=== PATIENT | female | born 1945 | race Caucasian/White ===

== ENCOUNTER → 2017-12-04 16:54 | Outpatient (CLI) | payer MEDICARE, OTHER, SELFPAY ==
--- NOTE | 2017-12-04 17:00 | RAD_ITS ---
STUDY: X-RAY - ABDOMEN/PELVIS REASON FOR EXAM: Female, 72 years old. Chronic constipation TECHNIQUE: 2 frontal views COMPARISON: None. FINDINGS: Normal visualized lung bases. Gaseous distended descending colon is noted with loss of haustral markings. There is no demonstrated free abdominal air. Normal soft tissue structures. Mild scoliosis. RAD/Abdomen Single View IMPRESSION: Gaseous distended descending colon is noted with loss of haustral markings. Electronically Signed: José Miguel Barnhart DO at 18:19 EST Tel [phone], Service support ,
== END ==
PROVIDERS: Family Provider Family Medicine; PCP Family Medicine; Visit Provider Family Medicine
DX: K59.09 Other constipation (principal)
CPT/HCPCS: 74018

== ENCOUNTER → 2017-12-12 13:45 | Outpatient (CLI) | payer MEDICARE, OTHER, SELFPAY ==
--- NOTE | 2017-12-12 13:47 | CT_ITS ---
STUDY: CT ABDOMEN AND PELVIS WITH CONTRAST REASON FOR EXAM: Female, 72 years old. Constipation. Prior bowel resection. RADIATION DOSAGE (If Supplied By Facility): CTDIvol = ( 22.09 ) mGy, DLP = ( 1215.01 ) mGycm TECHNIQUE: Transaxial images were obtained from the dome of the diaphragm to the symphysis pubis with oral contrast. 100CC ml of Isovue 300 contrast was administered. Sagittal and coronal images were reconstructed. Individualized dose optimization techniques were used for this CT. COMPARISON: None. FINDINGS: Minimal degree of increased linear markings at the lung bases suggestive of mild scarring. Cardiomegaly. Left atrial enlargement. A dual chamber pacemaker is seen. Prior mitral valve replacement. Normal liver. Normal gallbladder and extrahepatic biliary system. Normal spleen. Normal pancreas. Normal bilateral adrenal glands. Normal right kidney. Normal left kidney. There is a small hiatal hernia. Normal small intestine. A moderate amount of fecal material is seen throughout the colon. The patient is status post appendectomy. Normal abdominal aorta. Normal inferior vena cava. Normal retroperitoneum. Normal urinary bladder. Enlarged calcified fibroid uterus. Normal abdominal wall. Disc space narrowing at the L5-S1 level. CT/Abdomen/Pelvis WITH Contrast IMPRESSION: Moderate amount of fecal material is seen throughout the colon. Enlarged calcified fibroid uterus. Electronically Signed: Roc Gunn MD at 14:54 EST Tel [phone], Service support ,
[2017-12-12 14:00] LABS: CREATININE FINGERSTICK 0.8 mg/dL (0.55-1.02); EGFR FINGERSTICK > 60.0000 mL/min (>60)
== END ==
PROVIDERS: Family Provider Family Medicine; PCP Family Medicine; Visit Provider Family Medicine
DX: K59.09 Other constipation (principal)
CPT/HCPCS: 74177; Q9967

== ENCOUNTER → 2017-12-23 10:01 | Outpatient (CLI) | payer MEDICARE, OTHER, SELFPAY ==
[2017-12-23 11:58] LABS: Absolute Lymphocyte Count 1.27 X10^3/ul (0.83-4.51); Absolute Neutrophil Count 2.7 X10^3/uL (2.0-7.7); Basophil# 0.04 X10^3/uL; Basophil% 0.9 % (0-1); Eosinophil# 0.11 X10^3/uL; Eosinophils% 2.4 % (0-5); Hematocrit 44.6 % (37-47); Hemoglobin 14.2 g/dl (12.0-15.0); Lymphocyte # 1.27 X10^3/ul (4.0); Lymphocyte % 27.1 % (19-41); Mean Corp Hgb Conc 31.8 g/gl (32-36); Mean Corpuscular Hgb 30.9 pg (27.0-32.0); Mean Corpuscular Volume 97.2 fL (81-99); Mean Platelet Vol. 11.6 fl (6.2-12.0); Monocyte# 0.55 X10^3/uL; Monocyte% 11.8 % (0-10); Neutrophil # 2.71 X10^3/uL (2.7-7.7); Neutrophil % 57.8 % (47-70); POSITIVE COUNT NO; POSITIVE DIFFERENTIAL NO; POSITIVE MORPHOLOGY NO; Platelet Count 201 K/mm3 (150-450); RBC Distribution Width CV 14.1 % (11.6-14.6); RBC Distribution Width SD 50.1 fl (35.1-43.9); Red Blood Count 4.59 M/mm3 (4.2-5.4); White Blood Count 4.7 K/mm3 (4.4-11.0)
[2017-12-23 12:05] LABS: International Normalized Ratio 3.2; Prothrombin Time (Protime)PT. 32.6 SECONDS (11.7-14.9)
[2017-12-23 12:51] LABS: AST(SGOT) 41 U/L (15-37); Alanine Aminotransfer ALT/SGPT 40 U/L (13-56); Albumin, Serum 3.9 g/dL (3.2-5.0); Alkaline Phosphatase 84 U/L (45-117); Anion Gap 9 (5-15); BUN 20 mg/dL (7-18); BUN/Creat Ratio 20.2 RATIO (10-20); Bilirubin, Direct 0.17 mg/dL (0.00-0.30); Chloride 105 mmol/L (98-107); Cholesterol 174 mg/dL (200); Creatinine, Serum 0.99 mg/dL (0.55-1.02); EST Glomerular Filtration Rate 58 mL/min (>60); Est Glom Filt Rate - Afr Amer 71 mL/min (>60); Ferritin 72 ng/mL (8-252); Globulin 3.9 g/dL (2.2-4.2); Glucose 97 mg/dL (74-106); High Density Lipoprotein 43 mg/dL; Magnesium 2.4 mg/dL (1.6-2.6); Potassium 4.1 mmol/L (3.5-5.1); Protein, Total 7.8 g/dL (6.4-8.2); Sodium Level 141 mmol/L (136-145); Thyroid Stim Hormone (TSH) 6.64 uIU/mL (0.358-3.74); Triglycerides 168 mg/dL; Very Low Density Lipoprotein 34 mg/dL (5-40)
[2017-12-24 09:44] LABS: Vitamin B12 210 pg/mL (211-911)
== END ==
PROVIDERS: Family Provider Family Medicine; PCP Family Medicine; Visit Provider Family Medicine
DX: I48.91 Unspecified atrial fibrillation (principal); G11.9 Hereditary ataxia, unspecified; I42.8 Other cardiomyopathies; K59.09 Other constipation
CPT/HCPCS: 36415; 80048; 80061; 80076; 82607; 82728; 82746; 83735; 84443; 85025; 85610

== ENCOUNTER 2018-01-11 16:25 | Emergency (ER) | payer MEDICARE, OTHER, SELFPAY ==
[2018-01-11 16:26] VITALS: BP 114/82; PULSE 79; RESP 16; TEMP 36.3; O2SAT 97; BMI 30.9
--- NOTE | 2018-01-11 16:49 | CT_ITS ---
STUDY: CT BRAIN WITHOUT CONTRAST REASON FOR EXAM: Female, 72 years old. FALL , SMALL LAC RIGHT EYE, UNABLE TO WALK, BRAINSTEM STROKE, CEREBELLAR ATAXIA RADIATION DOSAGE (If Supplied By Facility): CTDIvol = ( 44.99 ) mGy, DLP = ( 897.35 ) mGycm TECHNIQUE: Transaxial CT imaging of the brain was performed without administration of intravenous contrast material. Individualized dose optimization techniques were used for this CT. COMPARISON: September 15, 2016 FINDINGS: Normal soft tissue structures. Normal calvarium. Normal size ventricles and extra-axial spaces for the patient's age. There are areas of decreased attenuation within the white matter tracts of the supratentorial brain, consistent with microvascular disease changes. Normal basal ganglia and thalami. Normal brainstem. Normal cerebellum. There is no intracranial hemorrhage. There are no findings of an acute ischemic infarction. Normal visualized paranasal sinuses. CT/Brain/Head without Contrast IMPRESSION: No acute intracranial hemorrhage or fracture is demonstrated. Electronically Signed: Karen Samuel MD at 17:43 EDT , Service support ,
--- NOTE | 2018-01-11 16:52 | ED.VISSUMM ---
- ER Visit Summary Date of Service: 01/11/18 Chief Complaint: Fall History of Present Illness: The patient is a 72 F with a history of spinal cerebellar ataxia, she walks with a walker at baseline but also uses a wheelchair a lot of times, states that she was getting from the recliner to her wheelchair, in the process her legs were too weak to hold her and she gave out and fell to the hardwood floor versus her right temporal forehead/head, and somehow injured her left chest in the process. She did not lose consciousness, she denies any nausea or vomiting or confusion or focal neurologic symptoms except for both of her legs being weak. She cannot tell if she is having soreness in the area that she hurt in her forehead or if she has a headache in that area. She is on Coumadin for chronic A. fib and she had an aortic valve replacement, and she has a cardiomyopathy with a low ejection fraction. Her last INR check was 3 weeks ago. Physical Examination: Vital signs are normal, her GCS is 15, she is well-appearing keenly alert. No distress. She has a small contusion in the right temporal area above the zygomatic arch which is nontender and stable. Midface is otherwise atraumatic. There is a minor abrasion at the superior brim of the right orbit, laterally. No lacerations. No hematomas. No crepitance or depression of the skull. No signs of a basilar skull fracture. She has a minor abrasion on the dorsum of the left wrist with no tenderness, she has full range of motion of all 4 extremities, but she is generally weak and symmetrically so in the lower extremities. Minor contusion on the right lower leg anteriorly nontender. Abdomen and chest are benign except for some mild tenderness in the left lateral mid chest just lateral to the left breast. There is no flail, or crepitance. She cannot take a deep breath without splinting. Equal breath sounds are heard bilaterally, lungs are clear. Back is nontender including neck, full range of motion of all that. Test Results: CT head and left rib series with PA chest are negative for acute injury. Old left-sided rib fractures were seen, the patient confirms that she did have some rib fractures in the past. Her INR is 3.0. Emergency Department Course and Treatment: I discussed possible causes of her weakness, she confirms that she has felt like this with her spinal cerebellar ataxia before, and when she has had a urinary tract infection in the past, she had dysuria, which she has not had recently, or any other symptoms of an illness. They are comfortable going home, she does have a wheelchair to get around in as needed. Encouraged to follow-up if she feels worse, or return to the ER. They are comfortable with this plan. Treatment Plan: As above Disposition: Discharge home with Impression: Closed head injury without concussion without loss of consciousness facial contusion Left rib contusion History spinal cerebellar ataxia Warfarin coagulopathy This note was generated with [employer]ne[employer] dictation software. It may contain incorrect words, spelling, and punctuation that were not noted in review of the chart prior to signing ED Disposition - Plan for ED Patient: Disposition: Home or Assisted Living Chief Complaint: Fall Instructions: Contusions (Bruises), ED Head Injury Closed Referrals: Jr Baron MD [Primary Care Provider] - (as needed)
[2018-01-11 17:19] LABS: International Normalized Ratio 3.3; Prothrombin Time (Protime)PT. 33.4 SECONDS (11.7-14.9)
--- NOTE | 2018-01-11 17:25 | RAD_ITS ---
STUDY: X-RAY - UNILATERAL RIBS ( LEFT ) WITH CHEST REASON FOR EXAM: Female, 72 years old. PATIENT FELL TODAY. PAIN IN MID TO LOWER LEFT RIBS ANTERIORLY TECHNIQUE - RIBS: 4 view(s) of the ribs. TECHNIQUE - CHEST: Single AP portable view of the chest. COMPARISON: January 12, 2016 left rib x-ray report only FINDINGS - RIBS: There are old fractures of the left sixth through 10th ribs. FINDINGS - CHEST: There is left basilar atelectasis. There is no demonstrated pleural abnormality. There is moderate cardiac megaly. Normal mediastinum and yoon. Normal visualized pulmonary arteries. Normal visualized aortic arch and descending thoracic aorta. Normal visualized thoracic spine. Normal visualized clavicles, and shoulders. There is no demonstrated abnormality of the visualized soft tissue structures of the upper abdomen. RAD/Ribs Uni Min 3V w/PA Chest IMPRESSION: RIBS: There are old fractures of the left sixth through 10th ribs. No acute fracture is demonstrated. CHEST: There is left basilar atelectasis. There is moderate cardiac megaly. Electronically Signed: Karen Samuel MD at 17:56 EDT , Service support ,
[2018-01-11 17:56] VITALS: BP 108/73; PULSE 80; RESP 14; O2SAT 99
[2018-01-11 18:49] VITALS: BP 117/73; PULSE 80; RESP 19; O2SAT 97
== END 2018-01-11 18:50 | disposition home or self-care (01) ==
PROVIDERS: Emergency Provider Emergency Medicine; Family Provider Family Medicine; PCP Family Medicine
DX: S00.83XA Contusion of other part of head, initial encounter (principal); S20.212A Contusion of left front wall of thorax, initial encounter; S00.211A Abrasion of right eyelid and periocular area, initial encounter; S60.812A Abrasion of left wrist, initial encounter; W01.10XA Fall on same level from slipping, tripping and stumbling with subsequent striking against unspecified object, initial encounter; Y93.9 Activity, unspecified; Y92.9 Unspecified place or not applicable; Y99.9 Unspecified external cause status; G11.9 Hereditary ataxia, unspecified; R79.1 Abnormal coagulation profile; I48.2 Chronic atrial fibrillation; I42.9 Cardiomyopathy, unspecified; G47.33 Obstructive sleep apnea (adult) (pediatric); Z79.01 Long term (current) use of anticoagulants; Z79.82 Long term (current) use of aspirin; Z79.899 Other long term (current) drug therapy; Z87.440 Personal history of urinary (tract) infections; Z95.2 Presence of prosthetic heart valve
CPT/HCPCS: 70450; 71101; 85610; 99284

== ENCOUNTER → 2018-02-26 09:56 | Outpatient (CLI) | payer MEDICARE, OTHER, SELFPAY ==
[2018-02-26 10:06] LABS: Bacteria 0 SEEN /hpf (None Seen); Mucous, Urine 0 SEEN /hpf (<or=2+)
[2018-02-26 12:04] LABS: International Normalized Ratio 2.4; Prothrombin Time (Protime)PT. 26.1 SECONDS (11.7-14.9)
[2018-02-26 12:09] LABS: Hematocrit 43.9 % (37-47); Hemoglobin 14.7 g/dl (12.0-15.0); Mean Corp Hgb Conc 33.5 g/gl (32-36); Mean Corpuscular Hgb 31.8 pg (27.0-32.0); Mean Platelet Vol. 12.6 fl (6.2-12.0); Platelet Count 195 K/mm3 (150-450); RBC Distribution Width SD 47.2 fl (35.1-43.9); Red Blood Count 4.62 M/mm3 (4.2-5.4); White Blood Count 4.6 K/mm3 (4.4-11.0)
[2018-02-26 12:17] LABS: Scan Indicated on CBC? Y/N NO
[2018-02-26 12:22] LABS: Anion Gap 8 (5-15); BUN 20 mg/dL (7-18); BUN/Creat Ratio 18.7 RATIO (10-20); Calcium,Total 9.3 mg/dL (8.5-10.1); Chloride 104 mmol/L (98-107); Creatinine, Serum 1.07 mg/dL (0.55-1.02); EST Glomerular Filtration Rate 53 mL/min (>60); Est Glom Filt Rate - Afr Amer 65 mL/min (>60); Glucose 105 mg/dL (74-106); Sodium Level 139 mmol/L (136-145)
[2018-02-26 12:23] LABS: Thyroid Stim Hormone (TSH) 3.68 uIU/mL (0.358-3.74)
[2018-02-26 18:40] LABS: Color, Urine Yellow (Yellow); Glucose, Dipstick Normal (Normal); Ketone-Dipstick Negative (Negative); Nitrite-Dipstick Negative (Negative); Occult Blood-Urine Negative /ul (Negative); Protein-Dipstick Negative (Negative); Urine Bilirubin Dipstick Negative (Negative); Urine Clarity Sl. Cloudy (Clear)
[2018-02-26 19:26] LABS: Leukocyte Esterase-Dipstick Negative /ul (Negative); Specific Gravity, Urine 1.015 (1.002-1.030); Urine Urobilinogen 1 mg/dl (Normal); Urine pH 6.5 (5.0 - 8.0)
[2018-02-26 19:43] LABS: Squamous Epithelial Cells - UA 0-5 SEEN /hpf (5-10); Transitional Epithelial - Ur 0-5 SEEN /hpf (0-5)
[2018-02-26 19:44] LABS: Red Blood Cells-Urine 0-5 SEEN /hpf (0-5)
[2018-02-26 19:46] LABS: White Blood Cells 5-10 SEEN /hpf (0-5)
[2018-02-26 19:47] LABS: Fine Granular Cast- Urine 0 SEEN /lpf (0-5)
[2018-02-26 19:50] LABS: Hyaline Cast 10-25 SEEN /lpf (0-5)
== END ==
PROVIDERS: Family Provider Family Medicine; PCP Family Medicine; Visit Provider Internal Medicine Cardiovascular Disease
DX: I42.0 Dilated cardiomyopathy (principal); I48.2 Chronic atrial fibrillation; R94.6 Abnormal results of thyroid function studies; Z95.810 Presence of automatic (implantable) cardiac defibrillator
CPT/HCPCS: 36415; 80048; 81001; 84443; 85027; 85610

== ENCOUNTER 2018-03-05 09:30 | Day surgery (SDC) | payer MEDICARE, OTHER, SELFPAY ==
[2018-03-05 10:01] LABS: Prothrombin Time Fingerstick 30.4 SEC (11.9-14.4)
--- NOTE | 2018-03-05 11:01 | PN_ITS ---
Progress Note ADDENDUM Addendum entered and electronically signed by MICHAEL Garcia 10:58: Pt is scheduled to have an ICD generator change out today. I have re-examined the patient. There are no clinical changes since the date of exam. Assessment & Plan 1. Dilated cardiomyopathy I42.0 2. Persistent atrial fibrillation I48.1 3. AICD (automatic cardioverter/defibrillator) present Z95.810 4. H/O mitral valve replacement Z95.2 [facility], 06/25/06 @ [facility] 5. Pure hypercholesterolemia E78.00; E78.0 6. Congestive heart failure with left ventricular diastolic dysfunction, NYHA class 3 I50.30 HPI HPI Chief Complaint: Follow up Details: ELIZABETH JOE, is a 72 F who presents to the office today for a follow -up visit. She is a pleasant lady with a history of nonischemic cardiomyopathy chronic atrial fibrillation mitral valve replacement status post [employer] device implantation who returns for routine follow-up visit. She has been compliant with all her medications and says that her exercise capacity remains stable. There has been perhaps minimal improvement she has not had any syncope occasionally she has had some dizziness. She has had occasional chest discomfort which is not long lasting and she is also been fatigued. She is also had minimal shortness of breath with activity. Approximately 3 months ago she had an episode of chest discomfort which did not appear to be coronary in etiology. She has not developed any significant or pedal edema. You do remember that in the summer of last year we obtained an echocardiogram which demonstrated an ejection fraction of 20% with akinesis of the lateral basal wall. Overall it did not appear to be significantly changed from previous. She has been keeping records of her blood pressures at home and they have ranged from the mid 80s to low 100s. Her physical exam today demonstrates clear lung gutiérrez crisp prosthetic heart sounds and no pedal edema. She appears to be tolerating her current dose of the Entresto. She also had her defibrillator interrogated today and she is close to LYNNE. 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 Accompanied by: Is patient in pain?: No Allergies Iodinated Contrast- Oral and IV Dye [Iodinated Contrast Media - IV Dye] Allergy (Intermediate, Verified 01/22/18 15:57) Rash Tetracyclines Adverse Reaction (Unknown, Verified 01/22/18 15:57) Rash wool Adverse Reaction (Verified 01/22/18 15:57) Rash chocolate Allergy (Mild, Uncoded 01/11/18 17:58) coughing/rash ragweed Allergy (Mild, Uncoded 01/11/18 17:58) red,itchy eyes beta bhavin Adverse Reaction (Intermediate, Uncoded 01/20/18 11:52) Unknown Medications Alpha Lipoic Acid 200 mg PO TID 04/24/15 [History Confirmed 01/22/18] Alprazolam [Xanax Xr] 0.25 mg PO BID 04/24/15 [History Confirmed 01/22/18] Aspirin [Aspirin, Baby] 81 mg PO DAILY@0800 04/24/15 [History Confirmed 01/22/18 ] Carvedilol [Coreg (Beta Bhavin)] 3.125 mg PO BID 04/24/15 [History Confirmed ] Furosemide [Lasix] 40 mg PO DAILY 04/24/15 [History Confirmed 01/22/18] Levocarnitine Tartrate [l-Carnitine] 500 mg PO TID 04/24/15 [History Confirmed 01/22/18] Linacolotide [Linzess] 72 mcg PO DAILY 04/24/15 [History Confirmed 01/22/18] Magnesium 3 tab PO DAILY 04/24/15 [History Confirmed 01/22/18] Niacin [Niacin ER] 1,000 mg PO QHS 04/24/15 [History Confirmed 01/22/18] Rosuvastatin Calcium [Crestor] 20 mg PO QHS 04/24/15 [History Confirmed 01/22/18 ] Venlafaxine HCl [Effexor] 75 mg PO BID 04/24/15 [History Confirmed 01/22/18] digoxin 125 mcg tablet 125 mcg PO DAILY 04/24/15 [History Confirmed 01/22/18] levETIRAcetam tablet [Keppra tablet] 750 mg PO QHS 04/24/15 [History Confirmed 01/22/18] Calcium Carb/Vitamin D [Caltrate-600 With Vit D Tab] 2 tab PO BID 04/05/16 [ History Confirmed 01/22/18] Co Q10 200 [Co Q-10] 100 mg PO DAILY 04/05/16 [History Confirmed 01/22/18] Folic Acid 1 mg PO DAILY@0800 04/05/16 [History Confirmed 01/22/18] Warfarin [Coumadin] 4 mg PO SUTUWETHSA 04/05/16 [History Confirmed 01/22/18] Warfarin [Coumadin] 3 mg PO MOFR 05/12/16 [History Confirmed 01/22/18] ranitidine 150 mg tablet 150 mg PO QHS tab 09/24/17 [History Confirmed 01/22/18 ] sacubitril 49 mg-valsartan 51 mg tablet 1 tab PO BID #180 tab 12/22/17 [Rx Confirmed 01/22/18] simethicone 180 mg capsule 180 mg PO QDAY PRN 01/22/18 [History Confirmed ] Ejection fraction %: 20 to 24 PFSH Medical History Hyperlipidemia (Chronic) Seizure disorder (Inactive) Chronic atrial fibrillation (Chronic) Cerebellar ataxia (Chronic) Benign essential hypertension (Chronic) H/O mitral valve replacement (Chronic) History of CVA (cerebrovascular accident) (Chronic) Nonischemic cardiomyopathy (Chronic) Shortness of breath (Acute) Surgical History H/O mitral valve replacement (Chronic ~06/2006) History of cardioversion (Chronic ~06/03/16) AICD (automatic cardioverter/defibrillator) present (Chronic ~06/2009) History of left heart catheterization (Acute ~2006) Family History Father CAD (coronary artery disease) Mother CAD (coronary artery disease) CABG Social History Smoking Status: Never smoker alcohol intake: never substance use type: does not use what type of physical activity do you participate in: walking, weight training frequency: daily duration: 15-30 minutes/day ROS Const Const: Positive for fatigue; negative for weakness, body ache, fever(s), headache(s), chills, frequent falls , night sweats, daytime sleepiness, difficulty sleeping, excessive sweating, weight gain, weight loss, increased appetite, poor appetite, anorexia or other Eyes Eyes: Negative for blind spots, loss of peripheral vision, transient loss of vision, blurry vision, change in vision, double vision, floaters, tunnel vision or other ENT ENT: Negative for dizziness, Nosebleed/epistaxis, balance problems, tongue swelling, lip swelling or headache(s) Cardio Chest Pain: Yes Frequency: weekly Character: other (ache) Duration: minutes Palpitations: No Edema: None Muscle aches with walking: None Resp Respiratory: Positive for SOB with activity; negative for SOB at rest, SOB orthopnea\SOB lying down, Cough, crackles, wheezing, chest congestion, paroxysmal nocturnal dyspnea or Coughing up blood/ hemoptysis GI GI: Negative nausea, vomiting, heartburn, bright, red blood in stools or black, tarry stools : Negative for hematuria, frequent nighttime urination/ nocturia, erectile dysfunction or abnormal vaginal bleeding Musc Musc: Negative for balance problems, muscle aches/ myalgia, muscle weakness or joint pain Skin Skin: Negative redness, non-healing lesions, rash, unusual bruising or skin ulcer Neuro Neuro: Negative for blurry vision, double vision, dizziness, lightheadedness, near syncope, syncope, orthostatic symptoms, memory loss, vertigo, lack of coordination, confusion, weakness, headache(s) or frequent falls Bill Hematologic/Lymphatic: Negative for easy bleeding, easy bruising or enlarged lymph nodes Endo Endo: Positive for fatigue; negative for cold intolerance, heat intolerance, flushing, hair loss, increased thirst/drinking or excessive sweating Psych Psych: Negative for anxiety, depression, thoughts of harming anyone, thoughts of harming yourself, panic attacks, visual hallucinations or audible hallucinations Allergy Allergy/Immunology: Negative for rash, Negative for throat swelling, Negative for tongue swelling, Negative for hives, Negative for lip swelling Cardiology Exam Const Appearance: cooperative, healthy appearing, well developed, well groomed and no acute distress Nutritional Appearance: well nourished and average body habitus Orientation: alert, awake and oriented x3 Head Head: normal to inspection, normocephalic and atraumatic Ears: hearing grossly normal bilaterally and external ears normal Nose: external nose normal, nasal mucous membranes and turbinates normal, nares normal, septum normal, no nasal discharge Face and Sinus: face symmetric Mouth: oral mucosae normal, tongue normal, oropharynx normal and moist mucous membranes Teeth and gingiva: dentition normal Throat: posterior oropharynx normal, tonsils normal and uvula midline Eyes General: appearance normal, both eyes and all related structures Eyelids: eyelids normal Conjunctivae: conjunctivae normal Pupils: PERRL, normal by confrontation and accommodation normal EOM: EOM intact bilaterally Neck Neck: normal visual inspection, trachea midline and no JVD JVD: +5 Carotids: normal carotid upstroke and bounding pulses Chest Chest inspection: normal inspection of the chest, symmetric chest movement and normal respiratory effort Auscultation: Bilateral: Clear to Auscultation Cardio Palpation: normal PMI Rate: regular rate Rhythm: regular rhythm Heart sounds: S1 normal, normal, physiologic split S2 and crisp prosthetic S2; negative rub, gallop or murmur GI GI: normal to inspection, soft, no hepatosplenomegaly and bowel sounds present Neuro General: alert, awake, oriented x3, no focal sensory deficit, gait normal and moves all extremities Skin Skin: no rashes or lesions noted Extremities Pulses: Normal: Right Femoral Pulse, Left Femoral Pulse, Right Dorsalis Pedis Pulse, Left Dorsalis Pedis Pulse, Right Posterior Tibial Pulse, Left Posterior Tibial Pulse, Right Radial Pulse, Left Radial Pulse Lower Extremity Edema: None: Bilateral Musculoskel Musculoskeletal: No joint tenderness Psych Psychological: normal affect Assessment & Plan 1. Dilated cardiomyopathy I42.0 Plan She does have a history of dilated cardia myopathy with no overt heart failure at this time she remains on her beta-bhavin as well as her and just to dosage which will be continued. As you know we have been limited by the amount of beta blockers that can be administered due to her low blood pressures. 2. Persistent atrial fibrillation I48.1 Plan She is in persistent atrial fibrillation. Her ventricular response rate is overall controlled she is on digoxin for the above as well as the beta-bhavin and I did share with them they recent literature demonstrating fairly significant evidence about increased mortality with digoxin. I will therefore like us not to renew the above prescription. They are in good agreement with the above. 3. AICD (automatic cardioverter/defibrillator) present Z95.810 Plan She is status post by the ICD implantation. She is in persistent atrial fibrillation with a battery longevity of less than 3 months. She has been scheduled for a generator change within the next 6 weeks. She will continue her other medications the same except for the digoxin. Appropriate instructions were given to her regarding blood work as well as time for her generator change out. 4. H/O mitral valve replacement Z95.2 [facility], 06/25/06 @ [facility] in [place] Plan She does have a [facility] prosthetic mitral valve which appears to be functioning well she will remain on anticoagulation for the above. I would not recommend cessation of anticoagulation for battery change out. Her last INR was noted to be 3.3. 5. Pure hypercholesterolemia E78.00; E78.0 Plan Her lipid profile is excellent with a total cholesterol 174 and LDL of 97 and an HDL of 43. Her triglycerides 168. As part of her health management have suggested that we try to lose approximately 5-6 pounds over the next 6 months. Hopefully this would allow us to be less fatigued. 6. Congestive heart failure with left ventricular diastolic dysfunction, NYHA class 3 I50.30 Plan She has not had any overt symptoms of the above she will continue on the beta- bhavin diuretics electrolyte panel will also be obtained. Her last creatinine was noted to be 0.99 with adequate potassium and sodium levels. No other changes will be made. 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) 3 Months Coding Level of Care Code Off vis,est,level 4 Diagnoses Dilated cardiomyopathy I42.0 Persistent atrial fibrillation I48.1 AICD (automatic cardioverter/defibrillator) present Z95.810 H/O mitral valve replacement Z95.2 Pure hypercholesterolemia E78.00; E78.0 Hyperlipidemia type: pure hypercholesterolemia Congestive heart failure with left ventricular diastolic dysfunction, NYHA class 3 I50.30 Coding Level of Care Code Off vis,est,level 4 Diagnoses Dilated cardiomyopathy I42.0 Persistent atrial fibrillation I48.1 AICD (automatic cardioverter/defibrillator) present Z95.810 H/O mitral valve replacement Z95.2 Pure hypercholesterolemia E78.00; E78.0 Hyperlipidemia type: pure hypercholesterolemia Congestive heart failure with left ventricular diastolic dysfunction, NYHA class 3 I50.30
--- NOTE | 2018-03-05 11:46 | PCM.OP.BLANK ---
Operative Report Date of Procedure: 03/05/18 Preoperative diagnosis is device at end of life for normal battery depletion. Postoperative diagnosis same as above. After informed consent and IV antibiotics the patient was brought to the [place] catheterization laboratory and the skin over the device was prepped and draped in the usual sterile manner. Intermittent boluses of Versed, fentanyl and propofol were used for sedation and analgesia as well as 1% subcutaneous lidocaine. An incision was made over the pre-existing device. Using blunt and Bovie dissection the pocket was opened and the BiV ICD device was removed. Careful attention was paid not to injure the pre-existing leads. The leads were removed from the device header and they were interrogated. There is normal lead function. Hemostasis was obtained. The pocket was flushed with antibiotic solution. The sponge and needle count were correct. The new device was brought to the field. The leads were placed in the appropriate position in the header and secured by the set screw. The leads and the device were then placed in the pocket. The pocket was closed with a deep layer of running 2-0 Vicryl, a superficial layer of running 4-0 Vicryl, skin with Steri-Strips which were covered with a rolled 4 x 4 and Tegaderm. Patient left the room with the device programmed to proper parameters and there were no complications. Pt with low percent BiV pacing due to permanent atrial fibrillation. All lead parameters were tested and found to be functionally normal. Lead and device serial and model numbers are available in the chart documents provided by the device company student services representative procedure summary.
== END 2018-03-05 23:59 | disposition home or self-care (01) ==
PROVIDERS: Family Provider Family Medicine; PCP Family Medicine; Visit Provider Internal Medicine Cardiovascular Disease
DX: Z45.010 Encounter for checking and testing of cardiac pacemaker pulse generator [battery] (principal); I42.0 Dilated cardiomyopathy; I48.1 Persistent atrial fibrillation; I50.30 Unspecified diastolic (congestive) heart failure; E78.00 Pure hypercholesterolemia, unspecified; G11.9 Hereditary ataxia, unspecified; G40.909 Epilepsy, unspecified, not intractable, without status epilepticus; Z95.2 Presence of prosthetic heart valve; Z95.810 Presence of automatic (implantable) cardiac defibrillator; Z79.82 Long term (current) use of aspirin; Z79.01 Long term (current) use of anticoagulants; Z79.899 Other long term (current) drug therapy; Z00.6 Encounter for examination for normal comparison and control in clinical research program
CPT/HCPCS: 33264; 36416; 85610; 93641; 99152; 99153; J7040; J7050; A4216

== ENCOUNTER → 2018-04-09 08:01 | Outpatient (CLI) | payer MEDICARE, OTHER, SELFPAY ==
--- NOTE | 2018-04-09 10:38 | CPS ---
Patient didn't complete after Flow Volume Loop. Patient felt dizzy and was unable to complete. Philly Baca RRT
--- NOTE | 2018-04-09 11:36 | PFTCOMP ---
COMPLETE PULMONARY FUNCTION TEST INTERPRETATION Brief HPI: Patient is a 72 year old female, currently under the care of myself, who presents to [facility] for complete pulmonary function tests secondary to diagnosis of dyspnea on exertion. Respiratory therapist reports good effort and reproducible results. Patient developed dizziness following albuterol, but declined going to the ER. Interpretation: Forced expiration spirometry shows no large airways obstructive ventilatory defect with an FEV1 of 100% predicted. Spirograms are of good quality and plateau normally. The respiratory flow volume loop shows a normal pattern. Lung volumes by body plethysmography show a normal total lung capacity at 6.93 L, 102% predicted. All other lung volumes are within normal limits. Diffusion capacity by carbon monoxide is normal at 72% predicted. The airway resistance is normal. Compared to previous pulmonary function tests from 05/22/2017, there has been no significant change. Impression: These pulmonary function tests are grossly within normal limits and are unchanged compared to previous study one year ago.
--- NOTE | 2018-04-09 11:39 | PFTCOMP_ITS ---
COMPLETE PULMONARY FUNCTION TEST INTERPRETATION Brief HPI: Patient is a 72 year old female, currently under the care of myself, who presents to [facility] for complete pulmonary function tests secondary to diagnosis of dyspnea on exertion. Respiratory therapist reports good effort and reproducible results. Patient developed dizziness following albuterol, but declined going to the ER. Interpretation: Forced expiration spirometry shows no large airways obstructive ventilatory defect with an FEV1 of 100% predicted. Spirograms are of good quality and plateau normally. The respiratory flow volume loop shows a normal pattern. Lung volumes by body plethysmography show a normal total lung capacity at 6.93 L , 102% predicted. All other lung volumes are within normal limits. Diffusion capacity by carbon monoxide is normal at 72% predicted. The airway resistance is normal. Compared to previous pulmonary function tests from 05/22/2017, there has been no significant change. Impression: These pulmonary function tests are grossly within normal limits and are unchanged compared to previous study one year ago.
== END ==
PROVIDERS: Family Provider Family Medicine; PCP Family Medicine; Visit Provider Internal Medicine Critical Care Medicine
DX: R06.02 Shortness of breath (principal)
CPT/HCPCS: 94060; 94726; 94729

== ENCOUNTER → 2018-04-24 13:28 | Outpatient (CLI) | payer MEDICARE, OTHER, SELFPAY ==
--- NOTE | 2018-04-24 13:30 | SP.MBSS_ITS ---
PRIMARY / SECONDARY DIAGNOSIS: pharyngoesophageal dysphagia (R13.14) REFERRING PHYSICIAN: Dr. Jr Baron MD CURRENT DIET: regular textures, thin liquids DENTITION: WFL MENTAL STATUS: WNL RESPIRATORY STATUS: O2 via room air PREVIOUS MODIFIED BARIUM SWALLOW STUDY: yes 07/20/2012 MBS revealed mild to moderate oropharyngeal dysphagia with transient penetration to the vocal folds with thin liquids 04/22/2012 MBS revealed mild to moderate oropharyngeal dysphagia with transient penetration above the vocal folds with thin liquids 07/18/2010 MBS revealed mild to moderate oropharyngeal dysphagia with transient penetration above the vocal folds with thin liquids REASON FOR REFERRAL: Patient is a 72 year old female referred for a modified barium swallow (MBS) study to objectively assess the Patients oropharyngeal swallow function under fluoroscopy secondary to 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 Patients significant other present, both report intermittent coughing during PO intake (particularly with mixed textures / Hydes), deny any recent aspiration related pulmonary complications, report no significant changes in ambulatory status (1 assist with front wheeled walker; 20-40 feet distances). 01/11/2018 CXR revealed old fractures of the left sixth through 10th ribs; no acute fracture is demonstrated; left basilar atelectasis; moderate cardiomegaly. 01/11/2018 CT revealed no acute intracranial hemorrhage or fracture is demonstrated. 05/11/[address] revealed no evidence of acute neck process or mass; left thyroidectomy with heterogeneous right thyroid gland. MEDICAL HISTORY: Spinocerebellar ataxia, prior pontine infarction, seizure disorder, cardiomyopathy, persistent atrial fibrillation, automatic cardioverter / defibrillator, pure hypercholesterolemia, congestive heart failure with left ventricular diastolic dysfunction, prior mitral valve replacement, STUDY FINDINGS: Patient participated in a Modified Barium Swallow (MBS) study on 04/24/2018. Dr. Gunn was the radiologist present for this evaluation. This study was recorded in the lateral view and images were sent to PACs for storage. The following consistencies were presented to this patient for analysis of oropharyngeal swallow function: thin liquids, nectar thickened liquids, pudding , and a regular textured, Dori Doone cookie. Results of the MBS are as follows: PENETRATION / ASPIRATION SCALE (NIHCOLAS): 1 = does not enter airway 2 = enters airway/above vocal folds/ejected 3 = enters airway/above vocal folds/not ejected 4 = enters airway/contacts vocal folds/ejected 5 = enters airway/contacts vocal folds/not ejected 6 = enters airway/below vocal folds/ejected 7 = enters airway/below vocal folds/not ejected despite effort 8 = enters airway/below vocal folds/no effort PENETRATION / ASPIRATION SCALE (SCORE) WITH VIDEOFLOROSCOPIC SCALE SCORE: Thin liquid - 5 mL tsp.: 5 Thin liquids via cup (single sip): 2 Thin liquids via cup (single sip): 3 Thin liquids via cup (single sip): 2 Thin liquids via cup (sequential swallows): 3 Thin liquids via straw (single sip): 2 Thin liquids via cup (chin tuck): 2 Thin liquids via cup (chin tuck & 3 second prep): 1 Thin liquids via cup (chin tuck & 3 second prep): 2 Thin liquids via cup (chin tuck & 3 second prep): 1 Orcutt thickened liquids via cup (single sip): 1 [place]cutt thickened liquids via cup (single sip): 2 [place] thickened liquids via cup (single sip): 1 Pudding via spoon: 1 Regular textured cookie: 1 Thin liquids via cup (chin tuck): 2 IMPRESSION: DIAGNOSIS: mild to moderate oropharyngeal dysphagia (R13.12) ORAL PHASE CHARACTERIZED BY: LABIAL SEAL: no labial escape TONGUE CONTROL DURING BOLUS MANIPULATION: intermittent posterior escape of less than half of bolus BOLUS PREPARATION / MASTICATION: timely and efficient chewing and mashing BOLUS TRANSPORT / LINGUAL MOTION: intermittent repetitive/disorganized tongue motion exclusively with pudding and regular textures (bolus excessively posterior within the oral / oropharyngeal sector) ORAL RESIDUE: trace residue lining oral structures PHARYNGEAL PHASE CHARACTERIZED BY: INITIATION OF PHARYNGEAL SWALLOW: bolus head in pyriforms at first hyoid excursion SOFT PALATE ELEVATION: escape to nasal cavity LARYNGEAL ELEVATION: partial superior movement of thyroid cartilage/partial approximation of arytenoids cartilage to epiglottic petiole ANTERIOR HYOID EXCURSION: partial anterior movement EPIGLOTTIC MOVEMENT: inconsistent epiglottic inversion LARYNGEAL VESTIBULE CLOSURE AT HEIGHT OF SWALLOW: incomplete / inconsistent laryngeal vestibule closure with narrow column of air/contrast in laryngeal vestibule PHARYNGEAL STRIPPING WAVE: pharyngeal stripping wave present / complete PHARYNGOESOPHAGEAL SEGMENT OPENING: complete distension and complete duration with no obstruction of flow TONGUE BASE RETRACTION: trace column of contrast between tongue base and posterior pharyngeal wall PHARYNGEAL RESIDUE: collection of residue within or on pharyngeal structures ( valleculae and pyriforms) on one trial of thin liquids likely due to pharyngeal dyssynchrony versus pharyngeal dysmotility; trace residue within or on pharyngeal structures across remaining trials ESOPHAGEAL PHASE CHARACTERIZED BY: ESOPHAGEAL BOLUS CLEARANCE IN THE UPRIGHT POSITION: could not view EFFECTS OF TREATMENT STRATEGIES ATTEMPTED: Chin tuck posture = moderately effective 3 second prep = moderately effective DIET TEXTURE RECOMMENDATIONS: Will recommend a regular-soft textured, thin liquid diet. 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 Oral phase primarily marked by suboptimal lingual control resulting in intermittent premature bolus loss (< 10%) with occasional lingual pumping motion during swallow onset with more viscous textures. Pharyngeal phase marked by delayed pharyngeal swallow onset timing resulting in suboptimal bolus location upon swallow onset contributing to prandial penetration with liquids; reduced closure of the airway during deglutition attributed to reduced anterior hyoid excursion and intermittent reduction in laryngeal elevation resulting in inconsistent poor laryngeal vestibule closure / pressure / duration contributing to prandial penetration of thin and nectar thickened liquids and inconsistent laryngeal vestibule pressure generated to expel penetrated material ; and velopharyngeal insufficiency soft palate elevation with nasoregurgitation of thin liquids. Deficits somewhat improved with a combination of the chin tuck posture and 3 second prep (occasional transient penetration, no discernable difference between thickened liquids and thin with stated precautions). No aspiration appreciated throughout trials. RECOMMENDATIONS: No significant difference between tolerance of thin and nectar thickened liquids under fluoroscopy, with no recent aspiration related pulmonary complications reported and maintained ambulatory / self-care functioning leading to recommendations to proceed with less restrictive liquid textures. Nevertheless, if the Patient is demonstrating overt aspiration upon subjective clinical analysis, would recommend downgrade to nectar thickened liquids, as prolonged intake may provoke further overt reactions. Patient requires intensive skilled speech-language intervention targeting continued diet texture management; training and implementation of recommended compensatory strategies; and training, development, and implementation of home based oropharyngeal strengthening exercises to facilitate improved oropharyngeal strength and coordination (prior initiation reported with desire to re-implement) at the outpatient level. ADDITIONAL COMMENTS/RECOMMENDATIONS: Results and recommendations were discussed with the Patient immediately following MBS completion, with the Patient verbalizing understanding and agreement with all recommendations and education provided. IMAGE COUNT: [id number] G-CODES: SWALLOWING [id number] Current Status: CJ SWALLOWING [id number] Goal Status: CI SWALLOWING [id number] Discharge Status: CJ
--- NOTE | 2018-04-24 13:30 | RAD_ITS ---
STUDY: SWALLOWING STUDY REASON FOR EXAM: Female, 72 years old. Dysphagia. TECHNIQUE: The examination was performed with Speech Pathology in attendance. Under fluoroscopic observation, the patient ingested thin barium, thick barium, barium pudding, and barium coated cracker. FLUOROSCOPY TIME: 2:43 minutes/seconds. RADIOLOGIST INVOLVEMENT: Radiologist was present and providing direct supervision. [id number] fluoroscopic images were obtained. COMPARISON: None. FINDINGS: The following was observed during swallowing of the various mixtures of barium: Thin Barium: Transient penetration with ingestion of thin liquids. Thick Barium: Transient penetration with ingestion of nectar thickened liquids. Barium Pudding: There was no evidence of aspiration or laryngeal penetration. Barium Coated Cracker: There was no evidence of aspiration or laryngeal penetration. RAD/Swallowing Function w/Video IMPRESSION: Transient penetration with ingestion of thin liquids. Mild transient penetration with ingestion of nectar thickened liquids as well. The swallow study findings were discussed with the patient by the speech pathologist at the conclusion of the examination. Please see speech pathology report for more information and recommendations. Electronically Signed: Roc Gunn MD at 14:32 EDT Tel [phone], Service support ,
== END ==
PROVIDERS: Family Provider Family Medicine; PCP Family Medicine; Visit Provider Family Medicine
DX: R13.14 Dysphagia, pharyngoesophageal phase (principal)
CPT/HCPCS: 74230; 92611; G8996; G8997; G8998

== ENCOUNTER 2018-05-20 15:00 | Outpatient (RCR) | payer MEDICARE, OTHER, SELFPAY ==
--- NOTE | 2017-11-12 16:02 | HP.PTREVAL_ITS ---
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 Please see the progress note below for an update on the physical therapy plan of care! Subjective: Patient feeling like life is status quo. Doing HEP at home and feels like needs to walk longer in PT as she does not trust her to do this at home. Does continue to walk 20 feet 3x/day at home with his assist adn does continue home upper and lower extremity ex. Objective/Function: Pt pivotted to mat table from WC with SBA today, poor proprioception upon getting ontable causes her to fall into lying on table prematurely. 44 feet ambulation distance first walk today with Min A wh walker. sSecond walk 34 feet with 90 degree turn, Ptient needs Min A for baalnce as proprioception and motor control is poor and her walking is limited by fatigue in lungs which makes her steps short and labored and unsafe. 44 feet ambulation distance first walk today with Min A wh walker. sSecond walk 34 feet with 90 degree turn, Ptient needs Min A for baalnce as proprioception and motor control is poor and her walking is limited by fatigue in lungs which makes her steps short and labored and unsafe. Overall, quality of mobility may be slightly better adn less c/o pain.PT STILL APPROPRIATE FOR PT TO CONTINUE TO MAINTAIN CURRENT LEVEL OF FUNCTION SHE DOES NOT TRUST TO WALK FAR WITH HER AT HOME. Plan Plan: weekly x 4-8 weeks. Please start with rolling to B quads, HS, ITB, gluts and gastroc. Then focus on gait distance, quality and turning. Goals Goal 1:: 90 degree turns with Min A consistently Goal Time Frame: 4-6 Weeks Goal Progress: Goal Met Goal 2:: Maintain 180 degree pivot with Min A and 45-50 feet of walking with encouragement Goal Time Frame: 6-8 Weeks Goal Progress: met and maintaining Goal 3:: Pt maintain ability to walk with walker with at home 60-80 feet twenty feet at a time Goal Time Frame: 4-6 Weeks Goal Progress: still approp and maintain Anticipated Interventions Patient/Client Instruction: Educate patient on: Condition For the Purpose of:: To improve ability of physical actions for home/community/ work/leisure Therapeutic Exercise to Include: Gait and locomotor training For the Purpose of:: To improve ability of physical actions for home/community/ work/leisure Comments: transfer training. For the Purpose of:: To improve ability of physical actions for home/community/ work/leisure Manual Therapy Techniques to Include: Soft tissue mobilization For the Purpose of:: To improve nutrient delivery to tissue, To increase oxygenation perfusion, To improve gait and locomotor functions Please do not hesitate to contact me at [phone] by phone or Fax: if you have questions or concerns regarding this new plan of care! Sincerely, Jr Porras, DPT, OC
--- NOTE | 2017-11-12 16:02 | HP.PTDCS(2) ---
HP - PT D/C Summary (2) It has been my pleasure to treat ELIZABETH JOE under orders from Jr Baron, for the diagnosis of L hip OA for a total of 6 visit(s). Discharge Date: 11/12/17 Please see the following information for a summary of their discharge status. - Subjective Subjective: Overall L hip pain no different than a month ago. Hard to tella difference with the stretching. Some times feels better in PT, one day it did not. Has 3-4/10 intermittently in lateral L hip when up and on it at times.Hard to tell if should continue but thinks stick rolout helps. - Overall Improvement % Improvement: 20 - Objective Objective/Function/Assessment: 44 feet ambulation distance first walk today with Min A wh walker. sSecond walk 34 feet with 90 degree turn, Ptient needs Min A for baalnce as proprioception and motor control is poor and her walking is limited by fatigue in lungs which makes her steps short and labored and unsafe. OVERALL HARD TO TELL ANY OBVIOUS IMPROVEMENTS TO PAIN FROM ROLLING AND STRETCHING. WILL CONTINUE ROLLING UPPER LEGS UNDER OTHER CHART FOR MOBILITY. - Goals Goal 1:: Pain L groin at worst 4/10 and L leg pain abolished Goal Progress: Not Progressing Goal 2:: Walk 20 feet 3x/day at home with walker and Min A without increased pain. Goal Progress: inconsistently met Goal 3:: I HEP to minimize future problems Goal Progress: Goal Met - Plan Plan: D/C current chart, but will continue rolling treatment under mobility chart as that may be improving at least in patient's mind. - D/C Information Discharge Comments: patient not noticing improvement to pain and will discontinue this chart as pain is not a huge issue currently. Will continue rolling to upper legs under other chart for mobility as patient and michele thinks she may walk better quality after rolling. If there are questions or concerns regarding this patient's physical therapy, please feel free to call me at [phone]. Thank you for the referral of this patient. Sincerely, Jr Porras, DPT, OC
--- NOTE | 2017-12-17 15:56 | HP.PTREVAL_ITS ---
Jr Baron, It has been my pleasure to treat ELIZABETH JOE over the last 79 visits for cerebellar ataxia. Please see the progress note below for an update on the physical therapy plan of care! Subjective: Doing OK. Thinks that the rollout and stretching helps, but L hip still hurts in upper front leg. Doing leg strengthening at home daily, does some upper body. Stretching ITB daiily at home. Walking 20 feet 3x/day, feels like it is getting harder. Feels more fatigued. Car transfers getting harder as sits before gets to seat. Missing the seat more often. Objective/Function: One little knot in anterior lateral R quad with STM. Very tight HS and quads, painful to overstretch. Walks with two 90 degree turns 20 feet with Min A, never got a good step lengtgh on either foot. Better ambulation second time with better step length and narrower JENIFER. All walks self limited by fatigue. PROM LE WFL, quads and HS mod tight. GENERALLY PATIENT DOING WELL WITH MAINTENANCE OF HOME WALKING AND TRANSFERS NOT DIGRESSING. APPROPRIATE TO CONTINUE POC FOR MAINTENANCE OF ABILITY TO WALK, TRANSFER, TURN WITH MINMAL ASSIST AT HOME. Plan Plan: weekly x 4 weeks to work on gait to maintain ability to walk at home and trasnfer and 90 degree turns. Pt wanted to d/c rollout and STretching as it is not helping l leg pain. Goals Goal 1:: 90 degree turns with Min A consistently Goal Time Frame: 4-6 Weeks Goal Progress: Goal Met Goal 2:: Maintain 180 degree pivot with Min A and 45-50 feet of walking with encouragement Goal Time Frame: 6-8 Weeks Goal Progress: Goal Met Goal 3:: Pt maintain ability to walk with walker with at home 60-80 feet twenty feet at a time Goal Time Frame: 4-6 Weeks Goal Progress: met, still approp. Anticipated Interventions Patient/Client Instruction: Educate patient on: Condition For the Purpose of:: To improve ability of physical actions for home/community/ work/leisure Therapeutic Exercise to Include: Gait and locomotor training For the Purpose of:: To improve ability of physical actions for home/community/ work/leisure Comments: transfer training. For the Purpose of:: To improve ability of physical actions for home/community/ work/leisure Manual Therapy Techniques to Include: Soft tissue mobilization For the Purpose of:: To improve nutrient delivery to tissue, To increase oxygenation perfusion, To improve gait and locomotor functions Please do not hesitate to contact me at [phone] by phone or Fax: if you have questions or concerns regarding this new plan of care! Sincerely, Jr Porras, DPT, OC
--- NOTE | 2018-01-29 15:39 | HP.PTREVAL_ITS ---
Jr Baron, It has been my pleasure to treat ELIZABETH JOE over the last 83 visits for cerebellar ataxia. Please see the progress note below for an update on the physical therapy plan of care! Subjective: Had ow blood pressure last week and it stayed low. Fell the week before for the first time in two years. Walking and both legs gave out. Hit head on open door. Checked ribs and head at ER whcih were OK but they hurt for a little weight. Squad took her to ER. Now feels like walking OK(back to normal). Forgetting to do arm and leg lifting ex. Objective/Function: 4 walks 20 feet each with wh walker adn min A at first adn mod at the end. Sit to stand with Min a blaance. 90 degree turn with Min a with wh walker. LE adn UE AROM WFL, shoulders slightly tight into flexion. Strength LE 4/5 but coordination very poor. Sitting balacne without support fair-, reaching throws her off balacne with self corrections. Plan Plan: weekly x 4 weeks for walking maintenance as patient and do not feel they can maintain on their own. Goals Goal 1:: 90 degree turns with Min A consistently Goal Time Frame: 4-6 Weeks Goal Progress: Goal Met Goal 2:: Maintain 180 degree pivot with Min A and 45-50 feet of walking with encouragement Goal Time Frame: 6-8 Weeks Goal Progress: Goal Met Goal 3:: Pt maintain ability to walk with walker with at home 60-80 feet twenty feet at a time Goal Time Frame: 4-6 Weeks Goal Progress: still approp. Goal 4:: sit 120 seconds unsupported with reach without assist or LOB Goal Time Frame: 6-8 Weeks Goal Progress: NEW GOAL Anticipated Interventions Patient/Client Instruction: Educate patient on: Condition For the Purpose of:: To improve ability of physical actions for home/community/ work/leisure Therapeutic Exercise to Include: Gait and locomotor training For the Purpose of:: To improve ability of physical actions for home/community/ work/leisure Comments: transfer training. For the Purpose of:: To improve ability of physical actions for home/community/ work/leisure Manual Therapy Techniques to Include: Soft tissue mobilization For the Purpose of:: To improve nutrient delivery to tissue, To increase oxygenation perfusion, To improve gait and locomotor functions Please do not hesitate to contact me at [phone] by phone or Fax: if you have questions or concerns regarding this new plan of care! Sincerely, LEAH PerezT, OC
--- NOTE | 2018-03-11 15:35 | HP.PTREVAL_ITS ---
Jr Baron, It has been my pleasure to treat ELIZABETH JOE over the last 86 visits for cerebellar ataxia. Please see the progress note below for an update on the physical therapy plan of care! Subjective: Had procedure a week ago. Changed battery on pacemaker. Feels like walking is better since then. It is good to change it as it was slowing me down. Walking 60-8 feet a day 20 fet at a time at home. L groin hurts intermittently for no reason, not consistently. 10# UE lifting limit with UE for two weeks after surgery. Objective/Function: Pt has had only 2 visiss since last poc due to needing new pacemaker. Appropriate to continue for maintenance PT for walking and sitting and balance. Plan Plan: weekly x 4-8 for gait and sitting unsupported for breathing muscles. Goals Goal 1:: 90 degree turns with Min A consistently Goal Time Frame: 4-6 Weeks Goal Progress: Goal Met Goal 2:: Maintain 180 degree pivot with Min A and 45-50 feet of walking with encouragement Goal Time Frame: 6-8 Weeks Goal Progress: Goal Met Goal 3:: Pt maintain ability to walk with walker with at home 60-80 feet twenty feet at a time Goal Time Frame: 4-6 Weeks Goal Progress: met adn appropriate Goal 4:: sit 120 seconds unsupported with reach without assist or LOB Goal Time Frame: 6-8 Weeks Goal Progress: met adn maintenence appro Anticipated Interventions Patient/Client Instruction: Educate patient on: Condition For the Purpose of:: To improve ability of physical actions for home/community/ work/leisure Therapeutic Exercise to Include: Gait and locomotor training For the Purpose of:: To improve ability of physical actions for home/community/ work/leisure Comments: transfer training. For the Purpose of:: To improve ability of physical actions for home/community/ work/leisure Manual Therapy Techniques to Include: Soft tissue mobilization For the Purpose of:: To improve nutrient delivery to tissue, To increase oxygenation perfusion, To improve gait and locomotor functions Please do not hesitate to contact me at [phone] by phone or Fax: if you have questions or concerns regarding this new plan of care! Sincerely, Jr Porras, DPT, OC
--- NOTE | 2018-04-08 16:01 | HP.PTREVAL_ITS ---
Jr Baron, It has been my pleasure to treat ELIZABETH JOE over the last 89 visits for cerebellar ataxia. Please see the progress note below for an update on the physical therapy plan of care! Subjective: Feels like doing status quo. PT is important as she tries things in here she would never try at home distance and turning jimenez. Saw Dr. Del Cid and thinks things are OK, no changes and wants continued PT. Pt doing LE adn UE exercises at home. Objective/Function: Walking quality was poor today. Trunk control looks better today in unsupported sitting. Walking was shorter with more turns than usual and limited by lungs getting tired and step length shortens when tired and foot placement/proprioception is difficult throughout. Plan Plan: Continue maintenance therapy due to her degenerative condition to ensure appropriate walking, trasnfers. Goals Goal 1:: 90 degree turns with Min A consistently Goal Time Frame: 4-6 Weeks Goal Progress: Goal Met Goal 2:: Maintain 180 degree pivot with Min A and 45-50 feet of walking with encouragement Goal Time Frame: 6-8 Weeks Goal Progress: Goal Met Goal 3:: Pt maintain ability to walk with walker with at home 60-80 feet twenty feet at a time Goal Time Frame: 4-6 Weeks Goal Progress: met and appropriate Goal 4:: sit 120 seconds unsupported with reach without assist or LOB Goal Time Frame: 6-8 Weeks Goal Progress: Progressing Anticipated Interventions Patient/Client Instruction: Educate patient on: Condition For the Purpose of:: To improve ability of physical actions for home/community/ work/leisure Therapeutic Exercise to Include: Gait and locomotor training For the Purpose of:: To improve ability of physical actions for home/community/ work/leisure Comments: transfer training. For the Purpose of:: To improve ability of physical actions for home/community/ work/leisure Manual Therapy Techniques to Include: Soft tissue mobilization For the Purpose of:: To improve nutrient delivery to tissue, To increase oxygenation perfusion, To improve gait and locomotor functions Please do not hesitate to contact me at [phone] by phone or Fax: if you have questions or concerns regarding this new plan of care! Sincerely, Jr Porras, DPT, OC
== END 2018-05-20 19:00 | disposition home or self-care (01) ==
LOC: PT 15:00
PROVIDERS: Family Provider Family Medicine; PCP Family Medicine; Visit Provider Family Medicine
DX: M16.12 Unilateral primary osteoarthritis, left hip (principal)
CPT/HCPCS: 97110; 97116; 97140; 97530

== ENCOUNTER → 2018-10-16 15:33 | Outpatient (CLI) | payer MEDICARE, OTHER, SELFPAY ==
[2018-10-16 18:44] LABS: AST(SGOT) 60 U/L (15-37); Alanine Aminotransfer ALT/SGPT 67 U/L (13-56); Albumin, Serum 3.8 g/dL (3.2-5.0); Alkaline Phosphatase 93 U/L (45-117); Bilirubin, Direct 0.24 mg/dL (0.00-0.30); Cholesterol 168 mg/dL (200); Globulin 3.5 g/dL (2.2-4.2); High Density Lipoprotein 48 mg/dL; Protein, Total 7.3 g/dL (6.4-8.2); Triglycerides 143 mg/dL; Very Low Density Lipoprotein 29 mg/dL (5-40)
== END ==
PROVIDERS: Family Provider Family Medicine; PCP Family Medicine; Visit Provider Internal Medicine Cardiovascular Disease
DX: E78.5 Hyperlipidemia, unspecified (principal); Z79.899 Other long term (current) drug therapy
CPT/HCPCS: 36415; 80061; 80076

== ENCOUNTER → 2019-01-06 11:07 | Outpatient (CLI) | payer MEDICARE, OTHER, SELFPAY ==
[2018-10-29 15:12] VITALS: BMI 29.0
[2019-01-06 12:54] LABS: Hematocrit 43.7 % (37-47); Mean Corpuscular Hgb 31.4 pg (27.0-32.0); Mean Platelet Vol. 11.7 fl (6.2-12.0); Platelet Count 212 K/mm3 (150-450); RBC Distribution Width SD 50.3 fl (35.1-43.9); Red Blood Count 4.46 M/mm3 (4.2-5.4)
[2019-01-06 12:55] LABS: Scan Indicated on CBC? Y/N NO
[2019-01-06 13:10] LABS: Anion Gap 9 (5-15); BUN 24 mg/dL (7-18); BUN/Creat Ratio 25.6 RATIO (10-20); Calcium,Total 8.9 mg/dL (8.5-10.1); Chloride 104 mmol/L (98-107); Creatinine, Serum 0.94 mg/dL (0.55-1.02); EST Glomerular Filtration Rate 62 mL/min (>60); Est Glom Filt Rate - Afr Amer 75 mL/min (>60); Glucose 125 mg/dL (74-106); Potassium 3.9 mmol/L (3.5-5.1); Sodium Level 140 mmol/L (136-145)
== END ==
PROVIDERS: Family Provider Family Medicine; PCP Family Medicine; Referring Provider Family Medicine; Visit Provider Internal Medicine Cardiovascular Disease
DX: I47.2 Ventricular tachycardia (principal)
CPT/HCPCS: 36415; 80048; 83735; 85027

== ENCOUNTER 2019-02-10 15:30 | Outpatient (RCR) | payer MEDICARE, OTHER, SELFPAY ==
--- NOTE | 2018-05-12 16:34 | HP.PTREVAL ---
Jr Baron, It has been my pleasure to treat ELIZABETH JOE over the last 92 visits for cerebellar ataxia. Please see the progress note below for an update on the physical therapy plan of care! Subjective: Not too shabby. No pain. nO SOON SCHEDULE WITH neuro. Got cleared by clinical research spec adn no f/u needed. Heart deficits is what holds her back with walking. Wants to continue maintenance PT. Walking at home 20-30 feet at a time. No major changes in function for better or worse. Objective/Function: Pt showing some deficits with reaching for object(rail) , hand flails until she grabs it, educated on trying weight on arm. Sit to stand is SBA, stadn to sit is much better with finding rail and sitting gently. Distance and volume of walking has been good for last two weeks at 150 feet each time and increased over 4 weeks ago. OVERALL, MAINTENANCE THERAPY IS APPROPRIATE WITH HER DIAGNOSIS AND SHE IS ACTUALLY SHOWN SOME IMPROVEMENT IN PT WALKING VOLUME OVER THE LAST MONTH. Plan Plan: Continue weekly maintenance for gait training, pt does nto wish or need to work on trasnfers or balance otherwise. Function is maintaining whcih is the goal. May want to try light weight around UE wrists to see if it makes reaching easier. Goals Goal 1:: Pt maintain ability to walk with her walker with at home 60-80 feet twenty feet at a time. Goal Time Frame: 2-4 Weeks Goal Progress: met and appropriate. Goal 2:: sit unsupported 120 seconds with reach without assist or LOB Goal Time Frame: 2-4 Weeks Anticipated Interventions Patient/Client Instruction: Educate patient on: Condition For the Purpose of:: To improve gait and locomotor functions Therapeutic Exercise to Include: Strength training, Gait and locomotor training For the Purpose of:: Other Other: maintenance of gait and transfers/balance. Please do not hesitate to contact me at [phone] by phone or if you have questions or concerns regarding this new plan of care! Sincerely, Jr Porras, DPT, OC
--- NOTE | 2018-05-13 07:52 | HP.SP.AD_ITS ---
History - History Date of Eval: 05/12/18 Previous speech therapy: Yes Results: MBS: 07/20/2012 MBS revealed mild to moderate oropharyngeal dysphagia with transient penetration to the vocal folds with thin liquids. 04/22/2012 MBS revealed mild to moderate oropharyngeal dysphagia with transient penetration above the vocal folds with thin liquids. 07/18/2010 MBS revealed mild to moderate oropharyngeal dysphagia with transient penetration above the vocal folds with thin liquids Other Relevant Medical History/Diagnoses/Surgery: Spinocerebellar ataxia, prior pontine infarction, seizure disorder, cardiomyopathy, persistent atrial fibrillation, automatic cardioverter / defibrillator, pure hypercholesterolemia , congestive heart failure with left ventricular diastolic dysfunction, prior mitral valve replacement, Smoking Status: Never smoker Hx Smoking: No Hx Tobacco Use: No Hx Smoking Exposure: No - Pain Is pain an issue with your current prescribed condition?: No - Personal Education History: Two Masters Degrees. Occupation: Retired. Right Hearing Abillity: Normal Left Hearing Abillity: Normal Visual Assistive Devices: None Patients Living Arrangements: With Significant Other Patient Allergies - Allergies Allergies Iodinated Contrast- Oral and IV Dye [Iodinated Contrast Media - IV Dye] Allergy (Intermediate, Verified 04/14/18 13:59) Rash Tetracyclines Adverse Reaction (Unknown, Verified 04/14/18 13:59) Rash wool Adverse Reaction (Verified 04/14/18 13:59) Rash chocolate Allergy (Mild, Uncoded 04/14/18 13:59) coughing/rash ragweed Allergy (Mild, Uncoded 04/14/18 13:59) red,itchy eyes beta cynthia Adverse Reaction (Intermediate, Uncoded 04/14/18 13:59) Unknown Subjective Oral Motor - Subjective Patient Reports: Slurred Speech Objective Oral Motor - Oral Status Dentition: WNL - Labial Observation at Rest: WNL Closure: WNL Pucker: WNL Retraction: WNL Alternating Pucker/Retraction: WNL Involuntary Movement noted: No - Lingual Impairment: WNL Protrusion: WNL Retraction: WNL Lateralization: WNL Involuntary Movement: No - Jaw Impairment: WNL - Respiratory Status Respiratory Status: Room Air Subjective Dysphagia - Symptoms Reported Symptoms/Problems with: Drooling, Coughing, Difficulty Swallowing Liquids - Current Diet Solids Current Diet: Soft - Current Diet Liquids Current Liquids: Thin Russell free water Protocol: No Objective Dysphagia - Thin Liquids Comments: No oral intake today per the patient request. Modified Barium Results Hx MBS Report Entered: Yes MBS Results (from prior exam): 05/13/18 07:50 Speech Therapy by Raji Ellis Modified Barium Swallow Study MR#: [id number] Acct: [id number] Name: ELIZABETH JOE Rep #: [id number] : [id number] 72 From: Arpit Barajas M.A., [employer] MANAGER PRIMARY / SECONDARY DIAGNOSIS: pharyngoesophageal dysphagia (R13.14) REFERRING PHYSICIAN: Dr. Jr Baron MD CURRENT DIET: regular textures, thin liquids DENTITION: WFL MENTAL STATUS: WNL RESPIRATORY STATUS: O2 via room air PREVIOUS MODIFIED BARIUM SWALLOW STUDY: yes 07/20/2012 MBS revealed mild to moderate oropharyngeal dysphagia with transient penetration to the vocal folds with thin liquids 04/22/2012 MBS revealed mild to moderate oropharyngeal dysphagia with transient penetration above the vocal folds with thin liquids 07/18/2010 MBS revealed mild to moderate oropharyngeal dysphagia with transient penetration above the vocal folds with thin liquids REASON FOR REFERRAL: Patient is a 72 year old female referred for a modified barium swallow (MBS) study to objectively assess the Patients oropharyngeal swallow function under fluoroscopy secondary to 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 Patients significant other present, both report intermittent coughing during PO intake (particularly with mixed textures / [place]), deny any recent aspiration related pulmonary complications, report no significant changes in ambulatory status (1 assist with front wheeled walker; 20-40 feet distances). 01/11/2018 CXR revealed old fractures of the left sixth through 10th ribs; no acute fracture is demonstrated; left basilar atelectasis; moderate cardiomegaly. 01/11/2018 CT revealed no acute intracranial hemorrhage or fracture is demonstrated. 05/11/[address] revealed no evidence of acute neck process or mass; left thyroidectomy with heterogeneous right thyroid gland. MEDICAL HISTORY: Spinocerebellar ataxia, prior pontine infarction, seizure disorder, cardiomyopathy, persistent atrial fibrillation, automatic cardioverter / defibrillator, pure hypercholesterolemia, congestive heart failure with left ventricular diastolic dysfunction, prior mitral valve replacement, STUDY FINDINGS: Patient participated in a Modified Barium Swallow (MBS) study on 04/24/2018. Dr. Gunn was the radiologist present for this evaluation. This study was recorded in the lateral view and images were sent to PACs for storage. The following consistencies were presented to this patient for analysis of oropharyngeal swallow function: thin liquids, nectar thickened liquids, pudding , and a regular textured, Dori Doone cookie. Results of the MBS are as follows: PENETRATION / ASPIRATION SCALE (NICHOLAS): 1 = does not enter airway 2 = enters airway/above vocal folds/ejected 3 = enters airway/above vocal folds/not ejected 4 = enters airway/contacts vocal folds/ejected 5 = enters airway/contacts vocal folds/not ejected 6 = enters airway/below vocal folds/ejected 7 = enters airway/below vocal folds/not ejected despite effort 8 = enters airway/below vocal folds/no effort PENETRATION / ASPIRATION SCALE (SCORE) WITH VIDEOFLOROSCOPIC SCALE SCORE: Thin liquid - 5 mL tsp.: 5 Thin liquids via cup (single sip): 2 Thin liquids via cup (single sip): 3 Thin liquids via cup (single sip): 2 Thin liquids via cup (sequential swallows): 3 Thin liquids via straw (single sip): 2 Thin liquids via cup (chin tuck): 2 Thin liquids via cup (chin tuck & 3 second prep): 1 Thin liquids via cup (chin tuck & 3 second prep): 2 Thin liquids via cup (chin tuck & 3 second prep): 1 [place] thickened liquids via cup (single sip): 1 [place] thickened liquids via cup (single sip): 2 [place] thickened liquids via cup (single sip): 1 Pudding via spoon: 1 Regular textured cookie: 1 Thin liquids via cup (chin tuck): 2 IMPRESSION: DIAGNOSIS: mild to moderate oropharyngeal dysphagia (R13.12) ORAL PHASE CHARACTERIZED BY: LABIAL SEAL: no labial escape TONGUE CONTROL DURING BOLUS MANIPULATION: intermittent posterior escape of less than half of bolus BOLUS PREPARATION / MASTICATION: timely and efficient chewing and mashing BOLUS TRANSPORT / LINGUAL MOTION: intermittent repetitive/disorganized tongue motion exclusively with pudding and regular textures (bolus excessively posterior within the oral / oropharyngeal sector) ORAL RESIDUE: trace residue lining oral structures PHARYNGEAL PHASE CHARACTERIZED BY: INITIATION OF PHARYNGEAL SWALLOW: bolus head in pyriforms at first hyoid excursion SOFT PALATE ELEVATION: escape to nasal cavity LARYNGEAL ELEVATION: partial superior movement of thyroid cartilage/partial approximation of arytenoids cartilage to epiglottic petiole ANTERIOR HYOID EXCURSION: partial anterior movement EPIGLOTTIC MOVEMENT: inconsistent epiglottic inversion LARYNGEAL VESTIBULE CLOSURE AT HEIGHT OF SWALLOW: incomplete / inconsistent laryngeal vestibule closure with narrow column of air/contrast in laryngeal vestibule PHARYNGEAL STRIPPING WAVE: pharyngeal stripping wave present / complete PHARYNGOESOPHAGEAL SEGMENT OPENING: complete distension and complete duration with no obstruction of flow TONGUE BASE RETRACTION: trace column of contrast between tongue base and posterior pharyngeal wall PHARYNGEAL RESIDUE: collection of residue within or on pharyngeal structures ( valleculae and pyriforms) on one trial of thin liquids likely due to pharyngeal dyssynchrony versus pharyngeal dysmotility; trace residue within or on pharyngeal structures across remaining trials ESOPHAGEAL PHASE CHARACTERIZED BY: ESOPHAGEAL BOLUS CLEARANCE IN THE UPRIGHT POSITION: could not view EFFECTS OF TREATMENT STRATEGIES ATTEMPTED: Chin tuck posture = moderately effective 3 second prep = moderately effective DIET TEXTURE RECOMMENDATIONS: Will recommend a regular-soft textured, thin liquid diet. 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 Oral phase primarily marked by suboptimal lingual control resulting in intermittent premature bolus loss (< 10%) with occasional lingual pumping motion during swallow onset with more viscous textures. Pharyngeal phase marked by delayed pharyngeal swallow onset timing resulting in suboptimal bolus location upon swallow onset contributing to prandial penetration with liquids; reduced closure of the airway during deglutition attributed to reduced anterior hyoid excursion and intermittent reduction in laryngeal elevation resulting in inconsistent poor laryngeal vestibule closure / pressure / duration contributing to prandial penetration of thin and nectar thickened liquids and inconsistent laryngeal vestibule pressure generated to expel penetrated material ; and velopharyngeal insufficiency soft palate elevation with nasoregurgitation of thin liquids. Deficits somewhat improved with a combination of the chin tuck posture and 3 second prep (occasional transient penetration, no discernable difference between thickened liquids and thin with stated precautions). No aspiration appreciated throughout trials. RECOMMENDATIONS: No significant difference between tolerance of thin and nectar thickened liquids under fluoroscopy, with no recent aspiration related pulmonary complications reported and maintained ambulatory / self-care functioning leading to recommendations to proceed with less restrictive liquid textures. Nevertheless, if the Patient is demonstrating overt aspiration upon subjective clinical analysis, would recommend downgrade to nectar thickened liquids, as prolonged intake may provoke further overt reactions. Patient requires intensive skilled speech-language intervention targeting continued diet texture management; training and implementation of recommended compensatory strategies; and training, development, and implementation of home based oropharyngeal strengthening exercises to facilitate improved oropharyngeal strength and coordination (prior initiation reported with desire to re-implement) at the outpatient level. ADDITIONAL COMMENTS/RECOMMENDATIONS: Results and recommendations were discussed with the Patient immediately following MBS completion, with the Patient verbalizing understanding and agreement with all recommendations and education provided. 04/24/18 182 <Electronically signed by Arpit Barajas M.A., [employer] MANAGER> Date Arpit Barajas M.A., [employer] MANAGER Electronically signed by Raji Ellis M.A., [facility]-[employer] MANAGER on 05/13/18 07:50 Initialized on 05/13/18 07:50 - END OF NOTE Dysphagia Assessment - Swallowing Impairment Contributing Factors to Swallowing Impairment: Reduced Laryngeal Excursion - Impact Impact on Safety & Functioning: No Limitations - Recommendations Modified Barium Swallow/Cookie Swallow Recommended: No Swallowing Treatment: No - Diet Texture Recommendations Other Solid: regular- soft Liquids: Thin - Safety Saftey Precautions/Swallowing Recommendations (Check all that Apply): Small Sips & Bites when Eating, No Straw, Other (Specify Below) Other: 3 second prep. - Compensatory Strategies Compensatory Strategies: Chin Tuck Plan - Plan Plan: No therapy is warranted at this time. Patient is cognitively able to understand HEP and she had no questions. A written sheet of exercises were provided to her and her . She is already on a regular diet with thin liquids at home and declined a follow up session. Educated on contacting this therapist if any questions should arise. - Recommendations Treatment Warranted: No Education - Patient has Indicated that the Following Identified Educational Needs: None The Patient has indicated that they have no educational or learning abilities that may effect their care.: Yes - Patient Instruction Patient Education: Diagnosis, Home Exercise Program Person Taught: Patient Teaching Method: Discussion, Demonstration Response to teaching: Return demonstration, Verbalize understanding
--- NOTE | 2018-06-09 15:34 | HP.PTREVAL_ITS ---
Jr Baron, It has been my pleasure to treat ELIZABETH JOE over the last 95 visits for cerebellar ataxia. Please see the progress note below for an update on the physical therapy plan of care! Subjective: status quo. Walking at home 20 feet 2-3x/day. No change. Doing arms and leg exercises. Forgets speech ex. Objective/Function: Pt medically approp for continued maintenance mobility therapy based on her degenerative condition of CA. Weigth tending posteriormore today and needed more assist for balance, large steps kept weight posterior today. OVERALL MAINTAINING DISTANCE AND TRANSFERS WELL WHICH IS THEIR MAIN GOAL. STATES THIS PT IS VERY USEFUL. Plan Plan: weekly for maintenance of ambulation and trasnfers. Goals Goal 1:: Pt maintain ability to walk with her walker with at home 60-80 feet twenty feet at a time. Goal Time Frame: 2-4 Weeks Goal Progress: Goal Met, and approp Goal 2:: sit unsupported 120 seconds with reach without assist or LOB Goal Time Frame: 2-4 Weeks Goal Progress: Goal Met, and approp Goal 3:: Maintain ability to walk 150 feet in a 30 mintue session with Min A Goal Time Frame: 2-4 Weeks Goal Progress: NEW GOAL Anticipated Interventions Patient/Client Instruction: Educate patient on: Condition For the Purpose of:: To improve gait and locomotor functions Therapeutic Exercise to Include: Strength training, Gait and locomotor training For the Purpose of:: Other Other: maintenance of gait and transfers/balance. Please do not hesitate to contact me at [phone] by phone or Fax: if you have questions or concerns regarding this new plan of care! Sincerely, Jr Porras, LEAHT, OC
--- NOTE | 2018-07-23 17:03 | HP.PTREVAL_ITS ---
Jr Baron, It has been my pleasure to treat ELIZABETH JOE over the last 99 visits for cerebellar ataxia. Please see the progress note below for an update on the physical therapy plan of care! Subjective: Blood pressure has limited visits lately, it is OK today in low 90s. Stagnant with PT, maintaining function well. No doctor visits coming up. Walked today this morning at home straight line 20 feet. Objective/Function: Maintaining function at home. Walking is limited by lung functiona nd feeling tired. Steps get short and labored when this happens. safety is limited by ataxia with LE movements and balance. needs Assist Min to be upright. Able to stand without support CGA today short durations but hesitan t. FAIR PRGONSOSIS FOR CONTINUED MAINTENANCE WHICH IS APPROPRIATE FOR HER SS THEY CANNOT DO THIS LEVEL OF WALKING I AT HOME. Plan Plan: WEEKLY X 4 TO COTNINUE TOWARD GOALS OF MAINTAINING FUNCTION. Goals Goal 1:: Pt maintain ability to walk with her walker with at home 60-80 feet twenty feet at a time. Goal Time Frame: 2-4 Weeks Goal Progress: Goal Met, APPROP Goal 2:: sit unsupported 120 seconds with reach without assist or LOB Goal Time Frame: 2-4 Weeks Goal Progress: Goal Met Goal 3:: Maintain ability to walk 150 feet in a 30 mintue session with Min A Goal Time Frame: 2-4 Weeks Goal Progress: NEW GOAL Anticipated Interventions Patient/Client Instruction: Educate patient on: Condition For the Purpose of:: To improve gait and locomotor functions Therapeutic Exercise to Include: Strength training, Gait and locomotor training For the Purpose of:: Other Other: maintenance of gait and transfers/balance. Please do not hesitate to contact me at [phone] by phone or if you have questions or concerns regarding this new plan of care! Sincerely, Jr Porras, DPT, OC
--- NOTE | 2018-09-09 15:33 | HP.PTEVAL ---
Patient's Visit Information ELIZABETH JOE is a 73 year old F referred to Physical Therapy by Jr Baron with a diagnosis of cerebellar ataxia. Date of Evaluation: Physical Therapist: Jr Porras DPT, OC - Visit Plan Plan: continue weekly for 4 weeks for maintenance of gait. - Pain L hip Pain Intensity (Out of 10): 0 Comment: not currently - Goals Goal 1:: Pt maintain ability to walk with her walker with at home 60-80 feet twenty feet at a time. Goal Time Frame: 2-4 Weeks Goal 2:: sit unsupported 120 seconds with reach without assist or LOB Goal Time Frame: 2-4 Weeks Goal 3:: Maintain ability to walk 150 feet in a 30 mintue session with Min A Goal Time Frame: 2-4 Weeks - Anticipated Interventions Patient/Client Instruction: Educate patient on: Condition For the Purpose of:: To improve gait and locomotor functions Therapeutic Exercise to Include: Strength training, Gait and locomotor training For the Purpose of:: Other Other: maintenance of gait and transfers/balance. Thank you for the opportunity to evaluate your patient. For Medicare and Medicare HMO plans, please review the plan of care and approve it. It will need to be FAXED BACK to us at [phone] for Medicare purposes. For Medicare only, by signing this I certify the plan of care. Please let me know if there are questions or concerns regarding this plan of care. Physician Signature: Date:
--- NOTE | 2018-10-21 15:31 | HP.PTREVAL ---
Jr Baron MD, It has been my pleasure to treat ELIZABETH JOE over the last 6 visits for cerebellar ataxia. Please see the progress note below for an update on the physical therapy plan of care! Subjective: Doing Ok, no big changes, stadning to get in car may be a little harder. Otherwise doing status quo walking at home 20 feet 3x/day Objective/Function: unsupported sit on mat x 7 minutes today without LOB. Walking is maintaining but seems to do better in am. may try to schedule that way. Plan Plan: weekly x 4-8 to maintain gait and function. Goals Goal 1:: Pt maintain ability to walk with her walker with at home 60-80 feet twenty feet at a time. Goal Time Frame: 2-4 Weeks Goal Progress: 40-60 lately, approp Goal 2:: sit unsupported 120 seconds with reach without assist or LOB Goal Time Frame: 2-4 Weeks Goal Progress: 5 minutes Goal 3:: Maintain ability to walk 150 feet in a 30 mintue session with Min A Goal Time Frame: 2-4 Weeks Goal Progress: approp, tired today. Anticipated Interventions Patient/Client Instruction: Educate patient on: Condition For the Purpose of:: To improve gait and locomotor functions Therapeutic Exercise to Include: Strength training, Gait and locomotor training For the Purpose of:: Other Other: maintenance of gait and transfers/balance. Please do not hesitate to contact me at [phone] by phone or if you have questions or concerns regarding this new plan of care! Sincerely, Jr Porras, DPT, OCS, CSCS
--- NOTE | 2018-11-25 10:06 | HP.PTREVAL ---
Jr Baron MD, It has been my pleasure to treat ELIZABETH JOE over the last 9 visits for cerebellar ataxia. Please see the progress note below for an update on the physical therapy plan of care! Subjective: L leg been hurting in hip and down leg for about 3 weeks, moreso with pivotting. Hard to put weight through it. Objective/Function: L quad mod tender adn hip flexor and quad tight L vs R. Tender to the touch Lquad max and into L ITB. IR very painful lateral hip L. Walking shorter today and pain 7-8/10 with L WB before manual and much better after manual Plan Plan: continue weekly in am for gait training, may rollout and stretch L quad if L hip pain persists. Goals still appropriate for maintenance adn fair prgonosis if hip pain comes down. Goals Goal 1:: Pt maintain ability to walk with her walker with at home 60-80 feet twenty feet at a time. Goal Time Frame: 2-4 Weeks Goal Progress: L hip influencing. Goal 2:: sit unsupported 120 seconds with reach without assist or LOB Goal Time Frame: 2-4 Weeks Goal Progress: Goal Met Goal 3:: Maintain ability to walk 150 feet in a 30 mintue session with Min A Goal Time Frame: 2-4 Weeks Goal Progress: L hip pain a problem. Anticipated Interventions Patient/Client Instruction: Educate patient on: Condition For the Purpose of:: To improve gait and locomotor functions Therapeutic Exercise to Include: Strength training, Gait and locomotor training For the Purpose of:: Other Other: maintenance of gait and transfers/balance. Please do not hesitate to contact me at [phone] by phone or if you have questions or concerns regarding this new plan of care! Sincerely, Jr Porras, DPT, OCS, CSCS
--- NOTE | 2018-12-24 11:05 | HP.PTREVAL ---
Jr Baron MD, It has been my pleasure to treat ELIZABETH JOE over the last 13 visits for cerebellar ataxia. Please see the progress note below for an update on the physical therapy plan of care! Subjective: Hip L 20% better overall. Still hurts to twist to get out of bed and when pivots on it with her ataxia. Objective/Function: Needing VC and visual cues to encourage further ambulation but good steps today losing quality near end of 42 foot walk. Limited mostly by fatigue in lungs working at 6/10 perceived exertion at end of walk. MAINTAINING AND STILL APPROPRIATE FOR PT TO DO THESE THINGS THAT THEY CANNOT DO SAFELYA T HOME TO MAINTAIN STRENGTH ADN FUNCTION. PAIN IN L LEG ONLY WITH WB INTERMITTENTLY. Plan Plan: CPNTINUE MAINTENANCE GAIT WEEKLY X 3 MONTHS. PT WILL MAINTAIN STRENGTH AT HOME AND KEEP NON DAMAGING MOVEMENT TO L LE. Goals Goal 1:: Pt maintain ability to walk with her walker with at home 60-80 feet twenty feet at a time. Goal Time Frame: 8-12 Weeks Goal Progress: Goal Met, APPROP Goal 2:: sit unsupported 120 seconds with reach without assist or LOB Goal Time Frame: 2-4 Weeks Goal Progress: Goal Met Goal 3:: Maintain ability to walk 150 feet in a 30 mintue session with Min A Goal Time Frame: 2-4 Weeks Goal Progress: 125 FEET TODAY, APPROP. Anticipated Interventions Patient/Client Instruction: Educate patient on: Condition For the Purpose of:: To improve gait and locomotor functions Therapeutic Exercise to Include: Strength training, Gait and locomotor training For the Purpose of:: Other Other: maintenance of gait and transfers/balance. Please do not hesitate to contact me at [phone] by phone or if you have questions or concerns regarding this new plan of care! Sincerely, Jr Porras, DPT, OCS, CSCS
--- NOTE | 2019-01-19 10:57 | HP.PTREVAL ---
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 Please see the progress note below for an update on the physical therapy plan of care! Subjective: Doing well, no pain lately. Doing exercises at home with band sometimes and others just AROM. Walking at home is status quo 20-30 feet 3x. Ocasionally she skips walking. Objective/Function: Excellent walking today with cga. Increasing distance with a total of 173 feet being tops for her in a long long time. Maintiaining gait and distances well. patient appropriate for continued maintenance therapy as she and unable to do this type of ambulation at home due to safety and home limitations. Fair prognosis for maintaining. Plan Plan: Continue weekly x 8 weeks for gait maintenance. Pt will ex at home and has no other goals other than maintaining gait for home mobility. Goals Goal 1:: Pt maintain ability to walk with her walker with at home 60-80 feet twenty feet at a time. Goal Time Frame: 8-12 Weeks Goal Progress: met , approp. Goal 2:: sit unsupported 120 seconds with reach without assist or LOB Goal Time Frame: 2-4 Weeks Goal Progress: Goal Met Goal 3:: Maintain ability to walk 150 feet in a 30 mintue session with Min A Goal Time Frame: 2-4 Weeks Goal Progress: met, appropriate. Anticipated Interventions Patient/Client Instruction: Educate patient on: Condition For the Purpose of:: To improve gait and locomotor functions Therapeutic Exercise to Include: Strength training, Gait and locomotor training For the Purpose of:: Other Other: maintenance of gait and transfers/balance. Please do not hesitate to contact me at [phone] by phone or if you have questions or concerns regarding this new plan of care! Sincerely, Jr Porras, DPT, OCS, CSCS
== END 2019-02-10 19:00 | disposition home or self-care (01) ==
LOC: PT 15:30
PROVIDERS: Family Provider Family Medicine; PCP Family Medicine; Visit Provider Family Medicine
DX: G11.9 Hereditary ataxia, unspecified (principal); R29.6 Repeated falls
CPT/HCPCS: 92610; 97110; 97116; 97140; 97530

== ENCOUNTER → 2019-04-23 11:57 | Outpatient (CLI) | payer MEDICARE, OTHER, SELFPAY ==
[2018-10-29 15:12] VITALS: BMI 29.0
[2019-04-23 13:13] LABS: AST(SGOT) 46 U/L (15-37); Alanine Aminotransfer ALT/SGPT 54 U/L (13-56); Albumin, Serum 3.7 g/dL (3.2-5.0); Alkaline Phosphatase 91 U/L (45-117); Bilirubin, Direct 0.18 mg/dL (0.00-0.30); Cholesterol 167 mg/dL (200); Globulin 3.8 g/dL (2.2-4.2); High Density Lipoprotein 47 mg/dL; Protein, Total 7.5 g/dL (6.4-8.2); Triglycerides 161 mg/dL; Very Low Density Lipoprotein 32 mg/dL (5-40)
== END ==
PROVIDERS: Family Provider Family Medicine; PCP Family Medicine; Referring Provider Internal Medicine Cardiovascular Disease; Visit Provider Internal Medicine Cardiovascular Disease
DX: E78.5 Hyperlipidemia, unspecified (principal); I05.1 Rheumatic mitral insufficiency; I10 Essential (primary) hypertension; I42.8 Other cardiomyopathies; I47.2 Ventricular tachycardia; I48.1 Persistent atrial fibrillation; Z95.2 Presence of prosthetic heart valve; Z95.810 Presence of automatic (implantable) cardiac defibrillator
CPT/HCPCS: 36415; 80061; 80076

== ENCOUNTER → 2019-05-28 12:37 | Outpatient (CLI) | payer MEDICARE, OTHER, SELFPAY ==
[2018-10-29 15:12] VITALS: BMI 29.0
--- NOTE | 2019-05-28 12:39 | RAD_ITS ---
STUDY: X-RAY - THORACIC SPINE REASON FOR EXAM: Female, 74 years old. Recent trauma TECHNIQUE: 5 view(s) of the thoracic spine were obtained. COMPARISON: 26 April 2016 FINDINGS: Thoracic spine is intact and aligned with exaggeration of thoracic kyphosis. Mineralization is diffusely decreased. Frontal images demonstrate sternotomy, pacemaker leads and mitral annular repair. Visualized right lung is clear. Left lung cannot be reliably evaluated. RAD/Thoracic Spine 3 Views IMPRESSION: No acute osseous trauma. Osteoporosis. Electronically Signed: Peep Maki, at 18:23 EDT Tel , Service support ,
== END ==
PROVIDERS: Family Provider Family Medicine; PCP Family Medicine; Referring Provider Family Medicine; Visit Provider Family Medicine
DX: M54.9 Dorsalgia, unspecified (principal)
CPT/HCPCS: 72072

== ENCOUNTER → 2019-06-03 15:48 | Outpatient (CLI) | payer MEDICARE, OTHER, SELFPAY ==
[2018-10-29 15:12] VITALS: BMI 29.0
[2019-06-03 17:24] LABS: Absolute Lymphocyte Count 0.59 X10^3/uL (0.83-4.51); Absolute Neutrophil Count 3.4 X10^3/uL (2.0-7.7); Basophil# 0.04 X10^3/uL; Basophil% 0.8 % (0-1); Eosinophil# 0.28 X10^3/uL; Eosinophils% 5.8 % (0-5); Hemoglobin 13.2 g/dL (12.0-15.0); Lymphocyte # 0.59 X10^3/ul (4.0); Lymphocyte % 12.2 % (19-41); Mean Corp Hgb Conc 32.2 g/dL (32-36); Mean Corpuscular Hgb 32.2 pg (27.0-32.0); Mean Platelet Vol. 11.1 fl (6.2-12.0); Monocyte# 0.53 X10^3/uL; NRBC Flagged by Analyzer 0 % (0-5); Neutrophil # 3.38 X10^3/uL (2.7-7.7); Neutrophil % 69.8 % (47-70); POSITIVE DIFFERENTIAL YES; Platelet Count 204 K/mm3 (150-450); RBC Distribution Width CV 14.1 % (11.6-14.6); White Blood Count 4.8 K/mm3 (4.4-11.0)
[2019-06-03 17:36] LABS: International Normalized Ratio 2.7
[2019-06-03 17:57] LABS: ALB/GLOB Ratio 0.9 RATIO (0.9-2.4); AST(SGOT) 37 U/L (15-37); Alanine Aminotransfer ALT/SGPT 47 U/L (13-56); Albumin, Serum 3.4 g/dL (3.2-5.0); Alkaline Phosphatase 84 U/L (45-117); Anion Gap 4 (5-15); BUN 21 mg/dL (7-18); Calcium,Total 8.7 mg/dL (8.5-10.1); Chloride 105 mmol/L (98-107); Creatinine, Serum 0.92 mg/dL (0.55-1.02); EST Glomerular Filtration Rate 64 mL/min (>60); Est Glom Filt Rate - Afr Amer 77 mL/min (>60); Ferritin 83 ng/mL (8-252); Globulin 3.9 g/dL (2.2-4.2); Glucose 69 mg/dL (74-106); Potassium 4.3 mmol/L (3.5-5.1); Protein, Total 7.3 g/dL (6.4-8.2); Sodium Level 139 mmol/L (136-145)
== END ==
PROVIDERS: Family Provider Family Medicine; PCP Family Medicine; Referring Provider Family Medicine; Visit Provider Family Medicine
DX: I48.91 Unspecified atrial fibrillation (principal)
CPT/HCPCS: 36415; 80053; 82728; 85025; 85610

== ENCOUNTER → 2019-06-24 16:22 | Outpatient (CLI) | payer MEDICARE, OTHER, SELFPAY ==
[2018-10-29 15:12] VITALS: BMI 29.0
[2019-06-24 17:31] LABS: Absolute Lymphocyte Count 0.84 X10^3/uL (0.83-4.51); Absolute Neutrophil Count 3.9 X10^3/uL (2.0-7.7); Basophil# 0.05 X10^3/uL; Basophil% 0.9 % (0-1); Eosinophil# 0.11 X10^3/uL; Hematocrit 43.4 % (37-47); Hemoglobin 13.7 g/dL (12.0-15.0); Lymphocyte # 0.84 X10^3/ul (4.0); Lymphocyte % 15.5 % (19-41); Mean Corp Hgb Conc 31.6 g/dL (32-36); Mean Corpuscular Hgb 31.4 pg (27.0-32.0); Mean Corpuscular Volume 99.3 fL (81-99); Mean Platelet Vol. 11.4 fl (6.2-12.0); Monocyte# 0.56 X10^3/uL; Monocyte% 10.3 % (0-10); NRBC Flagged by Analyzer 0 % (0-5); Neutrophil # 3.86 X10^3/uL (2.7-7.7); Neutrophil % 71.1 % (47-70); Platelet Count 225 K/mm3 (150-450); RBC Distribution Width CV 14.3 % (11.6-14.6); RBC Distribution Width SD 52.3 fl (35.1-43.9); Red Blood Count 4.37 M/mm3 (4.2-5.4); White Blood Count 5.4 K/mm3 (4.4-11.0)
[2019-06-24 17:41] LABS: Prothrombin Time (Protime)PT. 46.2 SECONDS (11.7-14.9)
[2019-06-24 17:45] LABS: International Normalized Ratio 4.9
[2019-06-24 18:00] LABS: ALB/GLOB Ratio 0.9 RATIO (0.9-2.4); AST(SGOT) 51 U/L (15-37); Alanine Aminotransfer ALT/SGPT 57 U/L (13-56); Albumin, Serum 3.8 g/dL (3.2-5.0); Alkaline Phosphatase 90 U/L (45-117); Anion Gap 6 (5-15); BUN 24 mg/dL (7-18); BUN/Creat Ratio 22.2 RATIO (10-20); Calcium,Total 8.8 mg/dL (8.5-10.1); Chloride 107 mmol/L (98-107); Creatinine, Serum 1.08 mg/dL (0.55-1.02); EST Glomerular Filtration Rate 53 mL/min (>60); Est Glom Filt Rate - Afr Amer 64 mL/min (>60); Globulin 4.1 g/dL (2.2-4.2); Glucose 75 mg/dL (74-106); Potassium 3.8 mmol/L (3.5-5.1); Protein, Total 7.9 g/dL (6.4-8.2); Sodium Level 142 mmol/L (136-145)
== END ==
PROVIDERS: Family Provider Family Medicine; PCP Family Medicine; Referring Provider Family Medicine; Visit Provider Family Medicine
DX: I48.91 Unspecified atrial fibrillation (principal)
CPT/HCPCS: 36415; 80053; 85025; 85610

== ENCOUNTER → 2019-07-07 14:39 | Outpatient (CLI) | payer MEDICARE, OTHER, SELFPAY ==
[2018-10-29 15:12] VITALS: BMI 29.0
--- NOTE | 2019-07-07 14:59 | BI_ITS ---
MAMMOGRAPHY - BILATERAL SCREENING REASON FOR EXAM: Female, 74 years old. Routine annual screening examination. PERTINENT HISTORY: Non-contributory. TECHNIQUE: Digital bilateral breast kushal (3D mammographic acquisition) in the CC and MLO projections. 2-D mediolateral oblique (MLO) and craniocaudad (CC) views of both breasts were obtained. CAD: Full Field Digital Mammography with Computer Added Detection was performed. COMPARISON: Comparison is made with prior study dated August 30, 2015 and October 29 2012. FINDINGS: Breast Composition: There are scattered areas of fibroglandular density. There are no dominant masses or suspicious calcifications. A pacemaker battery pack is once again seen in the left axillary region. No other significant abnormalities are identified. There has been no significant change since the prior study. BI/SCREEN MAMM (CAD) W/KUSHAL BILAT IMPRESSION: Stable bilateral screening mammogram. Yearly follow-up mammogram recommended. (A) ASSESSMENT CATEGORY: BIRADS Category 1: Negative. A letter regarding these results will be sent to the patient by the facility within 30 days. Approximately 10% of breast cancers are not detected by mammography. A normal mammogram should not delay biopsy of a clinically suspicious abnormality. [id number] Electronically Signed: Roc Gunn, at 15:57 EDT , Service support ,
== END ==
PROVIDERS: Family Provider Family Medicine; PCP Family Medicine; Referring Provider Family Medicine; Visit Provider Family Medicine
DX: Z12.31 Encounter for screening mammogram for malignant neoplasm of breast (principal)
CPT/HCPCS: 77063; 77067; 97116

== ENCOUNTER → 2019-07-14 10:24 | Outpatient (CLI) | payer MEDICARE, OTHER, SELFPAY ==
[2018-10-29 15:12] VITALS: BMI 29.0
--- NOTE | 2019-07-14 10:30 | BD_ITS ---
STUDY: DUAL ENERGY X-RAY ABSORPTIOMETRY / DXA REASON FOR EXAM: Female, 74 years old. The patient is postmenopausal. Loss of height. TECHNIQUE: Bone Mineral Density (BMD) measurements of lumbar spine and bilateral hips were obtained. COMPARISON: Comparison is made with prior study dated October 29, 2012. FINDINGS: Lumbar Spine (L1-L4): g/cm2 (1.041) / T-score (-1.0) / Z-score (0.7) Findings are suggestive of normal bone density with a low fracture risk. Left Femur Total: g/cm2 (0.653) / T-score (-2.8) / Z-score (-1.1) Left Femoral Neck: g/cm2 (0.749) / T-score (-2.1) / Z-score (-0.2) Right Femur Total: g/cm2 (0.590) / T-score (-3.3) / Z-score (-1.6) Right Femoral Neck: g/cm2 (0.661) / T-score (-2.7) / Z-score (-0.8) The T-Scores on the most recent prior examination were: Lumbar Spine (L1-L4): There has been worsening of bone density since the previous examination. Left Femur Total: which represents a worsening of 19.7%. Right Femur Total: which represents a worsening of 19.2%. BD/Dexa Bone Density Study IMPRESSION: The patient is considered osteoporotic as outlined below according to World Javy Organization (WHO) criteria with a high fracture risk. There has been worsening of bone density since the previous examination. Reference Information: The T-score is the number of standard deviations above or below the standard which is normal for young adults at their peak bone mineral density. The World Health Organization (WHO) interprets the T-scores as follows: Above -1 Normal bone density Between -1 and -2.5 Osteopenia Equal to / or below -2.5 Osteoporosis As a practical clinical guideline, osteopenia may be graded as follows: Mild -1 through -1.5 Moderate -1.6 through -2.0 Severe -2.1 through -2.4 The Z-score is the number of standard deviations above or below age-matched controls. A Z-score of less than -1.5 would be considered abnormal. References: 1. NIH Osteoporosis and Related Bone Diseases http://www.osteo.org 2. International Society for Clinical Densitometry http://www.iscd.org 3. National Osteoporosis Foundation http://www.nof.org Electronically Signed: Roc Gunn, at 15:50 EDT , Service support ,
== END ==
PROVIDERS: Family Provider Family Medicine; PCP Family Medicine; Referring Provider Family Medicine; Visit Provider Family Medicine
DX: Z78.0 Asymptomatic menopausal state (principal); M81.0 Age-related osteoporosis without current pathological fracture
CPT/HCPCS: 77080

== ENCOUNTER 2019-10-11 14:30 | Outpatient (RCR) | payer MEDICARE, OTHER, SELFPAY ==
[2018-10-29 15:12] VITALS: BMI 29.0
--- NOTE | 2019-02-16 12:48 | HP.PTREVAL ---
Jr Baron MD, It has been my pleasure to treat ELIZABETH JOE over the last 21 visits for Cerebellar ataxia. Please see the progress note below for an update on the physical therapy plan of care! Subjective: Status quo. Last week was too low in BP to attend. Came in the next day and could not walk as far. L upper leg hurts at times. Walking at home 20-30 feet at a time 2-3 x/day. Objective/Function: Min A to tansfer just for a quick moment of balance at the top of stand and CGA to sit slowy when fatigued. Obvious ataxia as is normal for her with reaching for hand shake and placing feet with ambulation but still slowly functional. This is her main limiting factor in safety and she stops ambulating typically due to lungs being tired. Pt requires WC follow as legs start to give out and would be unable to push herself this far on their own at home. Full aROM LE without pain today and ankle DF, knee flex/ext adn hip felx abd strength at 4/5 with MMT. Pt anshul no concerns except to cojtinue to maintain physical abilites. She says she fell one time last week adn was surprisingly jay to get off the floor with just the help of her and something to lean on. She is appreciative of the physical work that allowed this. Good prgnosis for maintenance goals. Plan Plan: Continue weekly x 8-12 total for gait training for maintenance of function.Continue maintenance based gait training and therapy in conjunction with home exercise program compliance with LE exercises adn walking with as safety allows. Goals Goal 1:: Maintain ability to walk with her walker with at home 60-8- feet per day , twenty feet at a time. Goal Time Frame: 8-12 Weeks Goal Progress: Met and appropriate Goal 2:: Maintain ability to walk 150 feet in a 30 minute session with Min A to help with endurance to continue abiliity to stand and transfer for ADLs at home Goal Time Frame: 8-12 Weeks Goal Progress: Met and appropriate Goal 3:: Maintain ability to move sit to stand adn back Mod I at walker to ensure continued home basic ADL ability Goal Time Frame: 8-12 Weeks Goal Progress: NEW GOAL Anticipated Interventions Patient/Client Instruction: Educate patient on: Condition, Plan of Care Other: to maintain abilities at home Therapeutic Exercise to Include: Strength training, Gait and locomotor training Comment: transfer training For the Purpose of:: To foster healthy habits, Other Other: to maintain abilites for basic ADLs at home Please do not hesitate to contact me at [phone] by phone or if you have questions or concerns regarding this new plan of care! Sincerely, Jr Porras, DPT, OCS, CSCS
--- NOTE | 2019-03-16 10:31 | HP.PTREVAL ---
Jr Baron MD, It has been my pleasure to treat ELIZABETH JOE over the last 25 visits for Cerebellar ataxia. Please see the progress note below for an update on the physical therapy plan of care! Subjective: Been walking once a day at home 20 feet because husbands legs are limiting ability to help her. L leg at times hurts but not today. No major changes to mobility at home. Transfers sometimes seems harder balance jimenez. Objective/Function: Fatigues at end of walk limited by lungs and heart fatigue. Sometimes arms get tired. Walking is staying status quo which is her goal with maintenance. Would be unabe to do these lengthy walks at home due to environment, safety and husbands limitations. Appropriate to continue maintenance therapy for gait and transfers. No other desires or needs to work on other mobility at this point. Fair prognosis and goals still appropriate. Plan Plan: weekly to continue gait training/transfer training for ambulation maintenance. Goals Goal 1:: Maintain ability to walk with her walker with at home 60-8- feet per day , twenty feet at a time. Goal Time Frame: 8-12 Weeks Goal Progress: decreased as above. appro Goal 2:: Maintain ability to walk 150 feet in a 30 minute session with Min A to help with endurance to continue abiliity to stand and transfer for ADLs at home Goal Time Frame: 8-12 Weeks Goal Progress: 110 feet today, approp. Goal 3:: Maintain ability to move sit to stand adn back Mod I at walker to ensure continued home basic ADL ability Goal Time Frame: 8-12 Weeks Goal Progress: more balance needed today Anticipated Interventions Patient/Client Instruction: Educate patient on: Condition, Plan of Care Other: to maintain abilities at home Therapeutic Exercise to Include: Strength training, Gait and locomotor training Comment: transfer training For the Purpose of:: To foster healthy habits, Other Other: to maintain abilites for basic ADLs at home Please do not hesitate to contact me at [phone] by phone or if you have questions or concerns regarding this new plan of care! Sincerely, Jr Porras, DPT, OCS, CSCS
--- NOTE | 2019-04-13 10:38 | HP.PTREVAL ---
Jr Baron MD, It has been my pleasure to treat ELIZABETH JOE over the last 29 visits for Cerebellar ataxia. Please see the progress note below for an update on the physical therapy plan of care! Subjective: Walking about normal at home 30 feet at time 1-3x/day. Sometimes has L hip pain but not today. Objective/Function: 154 feet total with Min A today and 3 3 minute breaks. 180 degree turn with Min A. Distance limtied by patient fatigue feelign tired in the lungs. Plan Plan: Cotninue weekly x 4-8 weeks for maintenance of mobility and gait for overall health of patient. fair prognosis toawrd maintenance goals. Would be unable to do this at home with due to safety issues with ataxic gait and needing WC follow. Goals Goal 1:: Maintain ability to walk with her walker with at home 60-8- feet per day , twenty feet at a time. Goal Time Frame: 8-12 Weeks Goal Progress: often; appropriate goal Goal 2:: Maintain ability to walk 150 feet in a 30 minute session with Min A to help with endurance to continue abiliity to stand and transfer for ADLs at home Goal Time Frame: 8-12 Weeks Goal Progress: Goal Met, still approp. Goal 3:: Maintain ability to move sit to stand adn back Mod I at walker to ensure continued home basic ADL ability Goal Time Frame: 8-12 Weeks Goal Progress: CGA for safety, approp. Anticipated Interventions Patient/Client Instruction: Educate patient on: Condition, Plan of Care Other: to maintain abilities at home Therapeutic Exercise to Include: Strength training, Gait and locomotor training Comment: transfer training For the Purpose of:: To foster healthy habits, Other Other: to maintain abilites for basic ADLs at home Please do not hesitate to contact me at [phone] by phone or if you have questions or concerns regarding this new plan of care! Sincerely, Jr Porras, DPT, OCS, CSCS
--- NOTE | 2019-05-18 10:37 | HP.PTREVAL_ITS ---
Jr Baron MD, It has been my pleasure to treat ELIZABETH JOE over the last 32 visits for Cerebellar ataxia. Please see the progress note below for an update on the physical therapy plan of care! Subjective: Doing OK, no pain. Has not been able to walk at home in last three weeks due to husbands back problems and pain. Still doing home LE exercises. Objective/Function: Danita are CGA for balance and needing WC follow today. Ambulation requires wh walker and Min A for balance and steadiness due to proprioceptive deficits. Steps get shorter as she gets tired. Maintenance goals are being met for the most part andd still apprpriate with fair prognosis(interesting to see how lack of ability to walk with at home will effect function longer term). Plan Plan: Mike pack for maintenacne therapy of gait and transfers. Goals Goal 1:: Maintain ability to walk with her walker with at home 60-8- feet per day , twenty feet at a time. Goal Time Frame: 8-12 Weeks Goal Progress: his back pain limits Goal 2:: Maintain ability to walk 150 feet in a 30 minute session with Min A to help with endurance to continue abiliity to stand and transfer for ADLs at home Goal Time Frame: 8-12 Weeks Goal Progress: 140+ feet today,a pprop. Goal 3:: Maintain ability to move sit to stand adn back Mod I at walker to ensure continued home basic ADL ability Goal Time Frame: 8-12 Weeks Goal Progress: CGA for safety, approp. Anticipated Interventions Patient/Client Instruction: Educate patient on: Condition, Plan of Care Other: to maintain abilities at home Therapeutic Exercise to Include: Strength training, Gait and locomotor training Comment: transfer training For the Purpose of:: To foster healthy habits, Other Other: to maintain abilites for basic ADLs at home Please do not hesitate to contact me at [phone] by phone or Fax: if you have questions or concerns regarding this new plan of care! Sincerely, Jr Porras, DPT, OCS, CSCS
--- NOTE | 2019-06-15 10:32 | HP.PTREVAL ---
Jr Baron MD, It has been my pleasure to treat ELIZABETH JOE over the last 35 visits for Cerebellar ataxia. Please see the progress note below for an update on the physical therapy plan of care! Subjective: Psin not an issue. Not walking with hubby at home due to his back concerns. Doesn't seem to be effecting function too much. Still able to transfer with his help although low soft chair can be challenging. Objective/Function: Overall walking similar to normal. Limited distance by lungs getting tired. Min A to trasnfer. Walkin 30-40 feet consistently adn totalled 142 today. Did a 180 degree turn with wh walker today with Min A. OVERALL MAINTAINING WALKING ABILITY DESPITE NOT AMBULATING WITH AT HOME, APPROPRIATE TO CONTINUE MAINTENANCE PT SHE IS UNABLE TO WALK AT HOME SAFELY. FAIR PROGNOSIS TO CONTINUE TO GOALS. Plan Plan: WEEKLY TO CONTINUE X 2-3 MONTHS TO MAINTAIN WALKING AND TRANSFER ABILITY. Goals Goal 1:: Maintain ability to walk with her walker with at home 60-8- feet per day , twenty feet at a time. Goal Time Frame: 8-12 Weeks Goal Progress: his back pain limits Goal 2:: Maintain ability to walk 150 feet in a 30 minute session with Min A to help with endurance to continue abiliity to stand and transfer for ADLs at home Goal Time Frame: 8-12 Weeks Goal Progress: 140+ feet today,a pprop. Goal 3:: Maintain ability to move sit to stand adn back Mod I at walker to ensure continued home basic ADL ability Goal Time Frame: 8-12 Weeks Goal Progress: mIN a FOR SAFETY Goal 4:: mAINTAIN ABILITY TO AMBULATE 140 FEET IN SESSION WITH MIN A Goal Time Frame: 8-12 Weeks Goal Progress: NEW GOAL Anticipated Interventions Patient/Client Instruction: Educate patient on: Condition, Plan of Care Other: to maintain abilities at home Therapeutic Exercise to Include: Strength training, Gait and locomotor training Comment: transfer training For the Purpose of:: To foster healthy habits, Other Other: to maintain abilites for basic ADLs at home Please do not hesitate to contact me at [phone] by phone or if you have questions or concerns regarding this new plan of care! Sincerely, Jr Porras, DPT, OCS, CSCS
--- NOTE | 2019-07-13 10:33 | HP.PTREVAL ---
Jr Baron MD, It has been my pleasure to treat ELIZABETH JOE over the last 39 visits for Cerebellar ataxia. Please see the progress note below for an update on the physical therapy plan of care! Subjective: Pain is not an issue. Rogers see Nehemias in August. Randy in July. Bone scan tomorrow for bone density. Doing leg exercises at home but not walking due to husbands back. Transfers may be a little harder. Objective/Function: 168 total feet today with 4 attempts all limited by lungs. Step length good today and balance first walk worse than usual but evened out nicley. Overall has been able to maintain distance and mostly Min A despite not being able to walk with at home due to his back. Approrpiate to cotniue maintenance therapy as she will nto be able to walk with him at home. Wheelchair follow is needed and Min A. Min A needed for sit to stand and stand to sit. Fair prognosis to cotninue maintenance of walking and transitions. Plan Plan: continue weekly to maintain gait and transfer ability. Goals Goal 1:: Maintain ability to walk with her walker with at home 60-8- feet per day , twenty feet at a time. Goal Time Frame: 8-12 Weeks Goal Progress: his back pain limits Goal 2:: Maintain ability to walk 150 feet in a 30 minute session with Min A to help with endurance to continue abiliity to stand and transfer for ADLs at home Goal Time Frame: 8-12 Weeks Goal Progress: met adn appropriate Goal 3:: Maintain ability to move sit to stand adn back Mod I at walker to ensure continued home basic ADL ability Goal Time Frame: 8-12 Weeks Goal Progress: mIN a FOR SAFETY, aprop. Goal 4:: mAINTAIN ABILITY TO AMBULATE 140 FEET IN SESSION WITH MIN A Goal Time Frame: 8-12 Weeks Goal Progress: met adn appropriate Anticipated Interventions Patient/Client Instruction: Educate patient on: Condition, Plan of Care Other: to maintain abilities at home Therapeutic Exercise to Include: Strength training, Gait and locomotor training Comment: transfer training For the Purpose of:: To foster healthy habits, Other Other: to maintain abilites for basic ADLs at home Please do not hesitate to contact me at [phone] by phone or if you have questions or concerns regarding this new plan of care! Sincerely, Jr Vern, DPT, OCS, CSCS
--- NOTE | 2019-08-10 10:40 | HP.PTREVAL_ITS ---
Jr Baron MD, It has been my pleasure to treat ELIZABETH JOE over the last 42 visits for Cerebellar ataxia. Please see the progress note below for an update on the physical therapy plan of care! Subjective: Doing OK, not walking at home still due to husbands pain. Transfers not changing difficulty jimenez. Saw doctor Nehemias last week and will change cpap. 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 Objective/Function: Gait with whw alker adn Min A: 38 feet. 40 feet. 38 feet. 40 feet. All limited by fatigue in lungs and Min A is for balance due to lack of proprioception adn foot placement. Pt does not wish to change plan and wants to keep working on maintenance walking. Min A sit to stadn to sit for safety today. Same goals and fair prognosis Plan Plan: weekly x 4-8 weeks for maitnenance gait as patient cannot do this at home or anywhere else due to safety concerns adn husbands back. Fair prognosis to maintain. Goals Goal 1:: Maintain ability to walk with her walker with at home 60-8- feet per day , twenty feet at a time. Goal Time Frame: 8-12 Weeks Goal Progress: no, due to hubby back edwina Goal 2:: Maintain ability to walk 150 feet in a 30 minute session with Min A to help with endurance to continue abiliity to stand and transfer for ADLs at home Goal Time Frame: 8-12 Weeks Goal Progress: Met and appropriate Goal 3:: Maintain ability to move sit to stand adn back Mod I at walker to ensure continued home basic ADL ability Goal Time Frame: 8-12 Weeks Goal Progress: mIN a FOR SAFETY, aprop. Goal 4:: A Goal Time Frame: 8-12 Weeks Goal Progress: met adn appropriate Anticipated Interventions Patient/Client Instruction: Educate patient on: Condition, Plan of Care Other: to maintain abilities at home Therapeutic Exercise to Include: Strength training, Gait and locomotor training Comment: transfer training For the Purpose of:: To foster healthy habits, Other Other: to maintain abilites for basic ADLs at home Please do not hesitate to contact me at [phone] by phone or if you have questions or concerns regarding this new plan of care! Sincerely, Jr Porras, DPT, OCS, CSCS
--- NOTE | 2019-09-07 10:40 | HP.PTREVAL ---
Jr Baron MD, It has been my pleasure to treat ELIZABETH JOE over the last 46 visits for Cerebellar ataxia. Please see the progress note below for an update on the physical therapy plan of care! Subjective: Im OK. Nothing has changed. saw Dr. Padilla. No pain today or lately. Some soreness in L Upper arm. 12 min late today. Objective/Function: Maintaining goals and doing well. L step length rather large today causing some difficulty intermittently with WB L leg at initial strike. Walking with big steps adn needing Min A for balacne today as always. Appropriate to continue for maintenance as they cannot do this at home with his back the way it is. Plan Plan: continue maintenance therapy weekly to goals with fair prognosis. gait training. Goals Goal 1:: Maintain ability to walk with her walker with at home 60-8- feet per day , twenty feet at a time. Goal Time Frame: 8-12 Weeks Goal Progress: no, due to hubby back edwina Goal 2:: Maintain ability to walk 150 feet in a 30 minute session with Min A to help with endurance to continue abiliity to stand and transfer for ADLs at home Goal Time Frame: 8-12 Weeks Goal Progress: Met and appropriate Goal 3:: Maintain ability to move sit to stand adn back Mod I at walker to ensure continued home basic ADL ability Goal Time Frame: 8-12 Weeks Goal Progress: mIN a FOR SAFETY, aprop. Goal 4:: A Goal Time Frame: 8-12 Weeks Goal Progress: met adn appropriate Anticipated Interventions Patient/Client Instruction: Educate patient on: Condition, Plan of Care Other: to maintain abilities at home Therapeutic Exercise to Include: Strength training, Gait and locomotor training Comment: transfer training For the Purpose of:: To foster healthy habits, Other Other: to maintain abilites for basic ADLs at home Please do not hesitate to contact me at [phone] by phone or if you have questions or concerns regarding this new plan of care! Sincerely, Jr Porras, DPT, OCS, CSCS
--- NOTE | 2019-09-20 10:16 | HP.SP.AD ---
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 She is aware of progressive nature of her diagnosis. Other Relevant Medical History/Diagnoses/Surgery: Patient had symptoms of diagnsis since 2009. She reported her sister had diangosis and it is genetic. Smoking Status: Never smoker Hx Smoking: No Hx Tobacco Use: No Hx Smoking Exposure: No - Pain Is pain an issue with your current prescribed condition?: Yes - Personal Occupation: Retired. Right Hearing Abillity: Normal Left Hearing Abillity: Normal Visual Assistive Devices: None Patients Living Arrangements: With Significant Other Patient Allergies - Allergies Allergies Iodinated Contrast Media [Iodinated Contrast Media - IV Dye] Allergy (Intermediate, Verified 08/18/19 12:20) Rash Tetracyclines Adverse Reaction (Unknown, Verified 08/18/19 12:20) Rash wool Adverse Reaction (Verified 08/18/19 12:20) Rash chocolate Allergy (Mild, Uncoded 08/18/19 12:20) coughing/rash ragweed Allergy (Mild, Uncoded 08/18/19 12:20) red,itchy eyes beta cynthia Adverse Reaction (Intermediate, Uncoded 08/18/19 12:20) Unknown Objective Oral Motor - Oral Status Dentition: WNL - Labial Observation at Rest: WNL Closure: WNL Pucker: WFL Retraction: WFL Alternating Pucker/Retraction: WFL Involuntary Movement noted: No - Lingual Impairment: WNL Protrusion: WNL Retraction: WNL Lateralization: WNL Involuntary Movement: No - Jaw Impairment: WNL - Respiratory Status Respiratory Status: Room Air Subjective Dysphagia - Current Diet Solids Current Diet: Regular - Current Diet Liquids Current Liquids: Thin Objective Dysphagia - Administered by Administered by: Self - Thin Liquids Administred via: Cup Oral Holding: No Duration: Swallow trigger was appropriate. - Regular Impaired Mastication: Slow but adequate. Laryngeal Elevation: Impaired - Results Swallowing Within Normal Limits: No Severity: Mild Dysphagia Assessment - Swallowing Impairment Contributing Factors to Swallowing Impairment: Reduced Laryngeal Excursion - Impact Impact on Safety & Functioning: Risk for Aspiration - Recommendations Modified Barium Swallow/Cookie Swallow Recommended: No Swallowing Treatment: No - Diet Texture Recommendations Solids Other: Regular Liquids: Thin - Safety Saftey Precautions/Swallowing Recommendations (Check all that Apply): Upright Position at Least 30 Minutes After Meals, Small Sips & Bites when Eating, Sips by Straw Only Plan - Plan Plan: Repeat MBS in 6 months for a yearly repeat due to degenerative nature of her diagnosis. Patient requested not to complete MBS currently and I am in agreement with this. No signs of symptoms of penetration/ aspiration at this time. She was provided with a home exercise program in which she was familiar with exercises. - Recommendations MBS: No Treatment Warranted: No Education - Patient has Indicated that the Following Identified Educational Needs: None The Patient has indicated that they have no educational or learning abilities that may effect their care.: Yes - Patient Instruction Patient Education: Diagnosis, Treatment Plan, Home Exercise Program Person Taught: Patient, Family Teaching Method: Discussion Response to teaching: Has Prior Knowledge
--- NOTE | 2019-10-04 12:28 | HP.PTREVAL ---
Jr Baron MD, It has been my pleasure to treat ELIZABETH JOE over the last 50 visits for Cerebellar ataxia. Please see the progress note below for an update on the physical therapy plan of care! Subjective: Troube with transfer from recliner to , more difficult than it used to be. I don't want to fall. Seat of recliner is higher in front adn getting to stadn is challenging. Objective/Function: Walking well with good leg movement at first but fatigues quickly, poor prorioception and pacement and tough time with appropriate amplitude of forward weight shift to stand safely. Needs Min A to walk today for safety adn balance. Appropriate to cotninue maintenance therapy as she is unable to walk with at home due to safety concerns. Fair prognosis to continue to meet goals. Plan Plan: weekly to maintain gait and LE strength, transfers. Goals Goal 1:: Maintain ability to walk with her walker with at home 60-8- feet per day , twenty feet at a time. Goal Time Frame: 8-12 Weeks Goal Progress: no, unsafe with huby back Goal 2:: Maintain ability to walk 150 feet in a 30 minute session with Min A to help with endurance to continue abiliity to stand and transfer for ADLs at home Goal Time Frame: 8-12 Weeks Goal Progress: 140+ today and appropriat Goal 3:: Maintain ability to move sit to stand adn back Mod I at walker to ensure continued home basic ADL ability Goal Time Frame: 8-12 Weeks Goal Progress: mIN a FOR SAFETY, aprop. Goal 4:: Pt and to say that transitioning out of recliner at home back to no problem Goal Time Frame: 6-8 Weeks Goal Progress: NEW GOAL Anticipated Interventions Patient/Client Instruction: Educate patient on: Condition, Plan of Care Other: to maintain abilities at home Therapeutic Exercise to Include: Strength training, Gait and locomotor training Comment: transfer training For the Purpose of:: To foster healthy habits, Other Other: to maintain abilites for basic ADLs at home Please do not hesitate to contact me at [phone] by phone or if you have questions or concerns regarding this new plan of care! Sincerely, Jr Porras, DPT, OCS, CSCS
== END 2019-10-11 19:00 | disposition home or self-care (01) ==
LOC: PT 14:30
PROVIDERS: Family Provider Family Medicine; PCP Family Medicine; Referring Provider Family Medicine; Visit Provider Family Medicine
DX: G11.9 Hereditary ataxia, unspecified (principal)
CPT/HCPCS: 92610; 97110; 97116; 97164

== ENCOUNTER 2019-11-29 11:09 | Emergency (ER) | payer MEDICARE, OTHER, SELFPAY ==
[2019-08-18 12:20] VITALS: BMI 29.0
[2019-11-29 11:12] VITALS: BP 100/62; PULSE 80; RESP 28; TEMP 36.6; O2SAT 97; BMI 29.9
--- NOTE | 2019-11-29 11:27 | RAD_ITS ---
STUDY: X-RAY CHEST REASON FOR EXAM: Female, 74 years old. SHORT OF BREATH, DIFFICULTY SPEAKING TECHNIQUE: Single AP portable view of the chest. COMPARISON: Comparison is made with prior study dated January 11, 2018. FINDINGS: EKG electrodes are seen. Minimal increased markings at the left lung base suggests a mild left basilar atelectasis. There is no demonstrated pleural abnormality. Sternal cerclage wires are present from a prior sternotomy. The patient is status post mitral valve replacement. Moderate cardiomegaly. A left-sided dual-chamber pacemaker is seen. Normal mediastinum and yoon. Normal visualized pulmonary arteries. There is atherosclerotic tortuosity of the aortic arch and descending thoracic aorta. Normal visualized thoracic spine. Normal visualized ribs, clavicles, and shoulders. There is no demonstrated abnormality of the visualized soft tissue structures of the upper abdomen. RAD/Chest 1 View (Portable) IMPRESSION: Findings suggest mild left basilar atelectasis. Cardiomegaly. Status post mitral valve replacement. Electronically Signed: Roc Gunn, at 11:48 EST , Service support ,
--- NOTE | 2019-11-29 11:28 | ED.DCSUM_ITS ---
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 has tried coughing. Associated Symptoms: is able to swallow since onset, is not normal, but able to do it. Narrative: Patient and state that this has happened to this severity once before but it self-resolved after 10 or 15 minutes. This one has not. It occurred while she was eating. She is not sure if she aspirated a piece of cereal or not. She denies any chest symptoms. She denies any new weakness in her arms or legs. states she has symptoms similar to this often while eating, but this is only the second episode of severe symptoms. History is extremely limited. The patient is having difficulty speaking, and every time her tries to help with history, she indicates that he should stay quiet. provides inconsistent historical elements as well. From what I can tell, I think she was diagnosed with ataxia possibly as a result of a stroke although apparently there is a family member with some type of genetic form of ataxia as well. She has no other residual problems from her stroke such as peripheral weakness or speech issues, the speech issue is acute at this time. It seems that she does not have normal swallowing at baseline as a result of this ataxia. - Past Medical History (1) Essential (primary) hypertension Status: Chronic (2) H/O mitral valve replacement Status: Chronic (3) Hyperlipidemia Status: Chronic (4) Nonischemic cardiomyopathy Status: Chronic (5) Nonsustained ventricular tachycardia Status: Chronic (6) Persistent atrial fibrillation Status: Chronic (7) Presence of biventricular implantable cardioverter-defibrillator (ICD) Status: Chronic Comment: 06/30/2009 w/ battery change out 03/05/18 (8) Rheumatic mitral insufficiency Status: Chronic (9) Spinocerebellar ataxia Status: Chronic Past Medical History - Allergies and Home Meds Allergies/Adverse Reactions: Allergies Iodinated Contrast Media [Iodinated Contrast Media - IV Dye] Allergy (Intermediate, Verified 11/29/19 11:16) Rash Tetracyclines Adverse Reaction (Unknown, Verified 11/29/19 11:16) Rash wool Adverse Reaction (Verified 11/29/19 11:16) Rash chocolate Allergy (Mild, Uncoded 11/29/19 11:16) coughing/rash ragweed Allergy (Mild, Uncoded 11/29/19 11:16) red,itchy eyes beta cynthia Adverse Reaction (Intermediate, Uncoded 11/29/19 11:16) Unknown Primary Care Physician: Milo Gallardo MD [STAFF PHYSICIAN] - 1 Week if not improving Jr Baron MD [Primary Care Provider] - Surgical History: colectomy, pacemaker implantation Lives: Spouse/ Significant Other Smoking Status: Never smoker - Family History Paternal Family History: Family History (Last Reviewed 08/18/19 @ 15:25 by Tobias Padilla MD) Father CAD (coronary artery disease) Mother CAD (coronary artery disease) Family History: Reports: No pertinent history Sibling Family History: Family History (Last Reviewed 08/18/19 @ 15:25 by Tobias Padilla MD) Father CAD (coronary artery disease) Mother CAD (coronary artery disease) Family History: Reports: - - Cerebellar ataxia Review of Systems ROS: Unable to Obtain - Very limited General: Denies: Chills, Fever ENT: Reports: - - hoarse. Denies: Bilateral ear pain, Rhinorrhea, Sore throat Cardiovascular: Denies: Chest pain Respiratory: Reports: Dyspnea. Denies: Orthopnea Gastrointestinal: Denies: Abdominal pain, Nausea, Vomiting, Diarrhea Skin: Denies: Rash, Wounds Neurological: Denies: Headache, Weakness, Numbness Physical Exam Vital Signs/Narrative: Vital Signs Temp Pulse Resp BP Pulse Ox 11/29/19 11:12 97.8 F 80 28 H 100/62 97 Inital Vital Signs reviewed: Yes General: Well nourished, Well developed, Obese, Acute Distress - Respiratory Head: Normocephalic, Atraumatic Eyes: Perrl, EOMI ENT: Moist mucous membranes, No rhinorrhea Neck: Supple, Nontender, No lymphadenopathy, No JVD Cardiovascular: Regular rate, Regular rhythm Respiratory: CTA bilaterally, Chest nontender, - - Stridorous and hoarse of voice. Moving air. Abdomen: Soft, Nontender, Nondistended, Normal bowel sounds Extremities: Nontender, No edema Skin: Normal color, No rash, No Trauma Neurological: Alert, Oriented x3, Cranial nerves II-XII grossly intact, Normal Strength, Normal Sensation, - - Extremely dysarthric. Does not seem aphasic. Psychological: Normal affect, Normal Mood Diagnostic/Tx/Re-eval Clinical Impression(s) from Imaging Studies Chest X-Ray 11/29/19 11:27 IMPRESSION: Findings suggest mild left basilar atelectasis. Cardiomegaly. Status post mitral valve replacement. Electronically Signed: Roc Gunn, at 11:48 EST , Service support , - Medical Decision Making Suspect laryngeal/airway foreign body as cause for these acute symptoms. Given the patient's stridor, high risk for an airway foreign body given the history, and inability to make a difference after coughing, I discussed with the patient and about performing a Heimlich maneuver and they verbally consented to this. We moved the patient into a sitting position with her legs over the side of the bed, and I approached her from behind and perform the Heimlich into her epigastrium twice. Patient tolerated it, it did not make a difference with regards to her stridor or sensation in her laryngeal area. Chest x-ray ordered, she is placed on a monitor, her vital signs are stable, she is placed in a position of comfort and ENT was emergently consulted. She is moving air and I do not think she needs to be intubated at this time. Patient states she is better as long she does not talk. We moved her to a room where she could be observed more closely, her stridor resolved she states she still feels the same although she feels better since she is not talking. She is clinically stable. Therefore I anesthetized her right nostril with 3 cc of 2% sterile lidocaine jelly, Dr. Oates was in surgery when we contacted him, so given her stability I think it is reasonable to await the 30 or so minutes after that until he is able to evaluate the patient. We have nasolaryngoscopy equipment at the bedside. He did perform a scope at the bedside, and was able to rule out supraglottic foreign body. Patient does not appear to have normal function of her vocal cords, suspected to be chronic. He was not able to evaluate the subglottic space to rule out a foreign body that was aspirated. I discussed with Dr. Gallardo on for pulmonary, who actually saw the patient in consultation once in the hospital in the past. He advised a CT with IV contrast, of the chest. It showed no acute abnormality or foreign body. He discussed bronchoscopy with her, and the patient wishes to avoid this if possible. We ambulated her. She did very well and did not have any bronchospasm. She has been stable throughout her ED observation/visit. On reevaluation, she is actually smiling and breathing normally without any stridor. Given all of this, Dr. Gallardo recommends discharge home and close outpatient follow-up or return to the ER if worse, it certainly is possible the patient cleared her aspirated foreign body and has residual vocal cord discomfort and/or bronchospasm. This should improve with time if the case. Discussed with patient and significant other, they are comfortable with this plan. ED Disposition - Plan for ED Patient: Disposition: Home or Assisted Living Diagnosis: Vocal cord dysfunction Instructions: Vocal Cord Dysfunction (VCD) Referrals: Jr Baron MD [Primary Care Provider] - Milo Gallardo MD [STAFF PHYSICIAN] - 1 Week if not improving
[2019-11-29 11:33] VITALS: O2SAT 97
--- NOTE | 2019-11-29 12:59 | CT_ITS ---
STUDY: CT CHEST WITH CONTRAST REASON FOR EXAM: Female, 74 years old. SHORT OF BREATH and amp; TROUBLE SPEAKING WHILE EATING THIS AM RADIATION DOSAGE (If Supplied By Facility): CTDIvol = ( 20.79 ) mGy, DLP = ( 563.50 ) mGycm TECHNIQUE: Transaxial imaging was performed following intravenous administration of IV 100mL [id number]-300. Multiplanar coronal and sagittal images were reformatted. Individualized dose optimization techniques were used for this CT. COMPARISON: Comparison is made with prior examination dated April 26, 2016. FINDINGS: A left-sided pacemaker is seen. Inhomogeneous enlargement of the right lobe of the thyroid with focal calcification and substernal extension. Increased interstitial markings with areas of confluence in the lower lobes as well as in the posterior aspect of the lingular segment of the left upper lobe suggestive of scarring. There is no demonstrated pleural abnormality. There is moderate cardiac enlargement. There is enlargement of the left atrium. There are multiple small lymph nodes within the mediastinum, which are normal in size and morphology most compatible with reactive lymph hyperplasia. Normal hilar regions. Normal enhanced pulmonary arteries. Normal aorta arch and descending thoracic aorta. There are mild multi-level degenerative changes of the thoracic spine. There is no demonstrated abnormality of the visualized upper abdomen. CT/Chest WITH Contrast IMPRESSION: Findings suggest some scarring at the lung bases and lingular segment of the left upper lobe. Cardiomegaly and enlargement of the left atrium. Electronically Signed: Roc Gunn, at 14:20 EST , Service support ,
[2019-11-29] MEDS: Lidocaine 2% Jelly 1 APPLIC Tube 3 APPLIC TOPICAL (13:01)
[2019-11-29 13:11] LABS: Absolute Lymphocyte Count 0.92 X10^3/uL (0.83-4.51); Absolute Neutrophil Count 4.3 X10^3/uL (2.0-7.7); Basophil# 0.06 X10^3/uL; Eosinophil# 0.11 X10^3/uL; Eosinophils% 1.9 % (0-5); Hematocrit 43.9 % (37-47); Hemoglobin 14.3 g/dL (12.0-15.0); Lymphocyte # 0.92 X10^3/ul (4.0); Lymphocyte % 15.5 % (19-41); Mean Corp Hgb Conc 32.6 g/dL (32-36); Mean Corpuscular Volume 101.4 fL (81-99); Mean Platelet Vol. 12.6 fl (6.2-12.0); Monocyte# 0.55 X10^3/uL; Monocyte% 9.3 % (0-10); NRBC Flagged by Analyzer 0 % (0-5); Neutrophil # 4.29 X10^3/uL (2.7-7.7); Neutrophil % 72.1 % (47-70); Platelet Count 180 K/mm3 (150-450); RBC Distribution Width SD 52.6 fl (35.1-43.9); Red Blood Count 4.33 M/mm3 (4.2-5.4); White Blood Count 5.9 K/mm3 (4.4-11.0)
[2019-11-29] MEDS: DiphenhydrAMINE 50 MG/ML Syringe 25 MG IV (13:13)
[2019-11-29 13:18] LABS: Anion Gap 2 (5-15); BUN 24 mg/dL (7-18); BUN/Creat Ratio 20.3 RATIO (10-20); Calcium,Total 8.8 mg/dL (8.5-10.1); Chloride 109 mmol/L (98-107); Creatinine, Serum 1.18 mg/dL (0.55-1.02); EST Glomerular Filtration Rate 47 mL/min (>60); Est Glom Filt Rate - Afr Amer 57 mL/min (>60); Estimated Creatinine Clearance 49.03 ml/min; Glucose 122 mg/dL (74-106); Potassium 4.8 mmol/L (3.5-5.1); Sodium Level 140 mmol/L (136-145)
[2019-11-29 13:19] LABS: International Normalized Ratio 3.1
--- NOTE | 2019-11-29 14:32 | NURSING ---
DR OLIVAREZ IN ROOM
[2019-11-29] MEDS: Mixture 30 ML Bottle TOPICAL (14:33)
[2019-11-29 14:38] VITALS: PULSE 80; RESP 17; O2SAT 97
--- NOTE | 2019-11-29 14:55 | CON.PCM_ITS ---
Problem List (1) Spinocerebellar ataxia Status: Chronic (2) Nonischemic cardiomyopathy Status: Chronic (3) Presence of biventricular implantable cardioverter-defibrillator (ICD) Status: Chronic Comment: 06/30/2009 w/ battery change out 03/05/18 (4) Rheumatic mitral insufficiency Status: Chronic (5) H/O mitral valve replacement Status: Chronic (6) Persistent atrial fibrillation Status: Chronic (7) Nonsustained ventricular tachycardia Status: Chronic (8) Essential (primary) hypertension Status: Chronic (9) Hyperlipidemia Status: Chronic Qualifiers: Hyperlipidemia type: pure hypercholesterolemia Qualified Code(s): E78.00 - Pure hypercholesterolemia, unspecified; E78.0 - Pure hypercholesterolemia Reason for Consult Date of Consultation: 11/29/19 Reason for Consultation: Possible aspiration History of Present Illness: The patient is a 74 year old F, with past medical history listed below and known to me from previous office visits, who presented to [facility] on 11/29/2019 secondary to an aspiration event. Patient reportedly was of her usual health and then at approximately 930 this morning patient had an aspiration event while eating raisin Bran crunch. Following the aspiration, patient had trouble speaking and breathing. Patient had tried coughing with little improvement. Patient reportedly has been swallowing okay, but it was more of a struggle. On arrival to the ER, patient's family had reported that she had had previous episodes, but these typically resolved after 10 or 15 minutes. Patient had denied any current chest or new neurologic symptoms. In the ER, patient was noted to have stridor and there was some concern for an airway foreign body. Patient was seen by ENT when a Heimlich maneuver was unsuccessfully. Chest x- ray showed no significant collapse. Patient was anesthetized with lidocaine jelly and evaluated by Dr. Schafer. Patient reportedly had some poorly functioning vocal cords, but no obvious lesions or foreign bodies. I was called and reviewed the case. Patient had a CT scan of the chest completed and then patient was evaluated in the ER. On my evaluation, patient reported significant improvement in shortness of breath. Patient was also reporting some improvement with hoarseness, but was not back to baseline. Patient felt that the endoscopy completed by ENT was helpful. Patient does not report any conscious expectoration of any foreign material. Patient states she was of her usual health prior to this acute event. Patient was highly anxious about the thought of having a bronchoscopy. Patient states that in the past she has been refused colonoscopy secondary to concern for cardiovascular complications. Patient has asked before any intervention the Dr. Padilla be notified. Review of systems otherwise negative from a constitutional, HEENT, respiratory, cardiovascular, GI, genitourinary, musculoskeletal, skin, neurologic, psychiatric and hematologic system unless stated above. Past Medical History Past Medical History (Chronic Problems): Chronic Problems (Last Reviewed 08/18/19 @ 15:25 by Tobias Padilla MD) Spinocerebellar ataxia (Chronic) Nonischemic cardiomyopathy (Chronic) Presence of biventricular implantable cardioverter-defibrillator (ICD) (Chronic 03/05/18) 06/30/2009 w/ battery change out 03/05/18 Rheumatic mitral insufficiency (Chronic) H/O mitral valve replacement (Chronic 06/2006) Persistent atrial fibrillation (Chronic) Nonsustained ventricular tachycardia (Chronic) Essential (primary) hypertension (Chronic) Hyperlipidemia (Chronic) Medical History: Medical History (Last Reviewed 08/18/19 @ 15:25 by Tobias Padilla MD) Nonischemic cardiomyopathy (Chronic) I42.8 Rheumatic mitral insufficiency (Chronic) I05.1 Persistent atrial fibrillation (Chronic) I48.1 Nonsustained ventricular tachycardia (Chronic) I47.2 Essential (primary) hypertension (Chronic) I10 Hyperlipidemia (Chronic) E78.5 CVA (cerebral vascular accident) I63.9 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 History of cardioversion Z98.890 10/2009, 04/08/2016, 06/03/16 Seizures R56.9 Allergies Iodinated Contrast Media [Iodinated Contrast Media - IV Dye] Allergy (Intermediate, Verified 11/29/19 11:16) Rash Tetracyclines Adverse Reaction (Unknown, Verified 11/29/19 11:16) Rash wool Adverse Reaction (Verified 11/29/19 11:16) Rash chocolate Allergy (Mild, Uncoded 11/29/19 11:16) coughing/rash ragweed Allergy (Mild, Uncoded 11/29/19 11:16) red,itchy eyes beta cynthia Adverse Reaction (Intermediate, Uncoded 11/29/19 11:16) Unknown Home Medications: Ambulatory Orders Medication Instructions Recorded Alpha Lipoic Acid 200 mg PO TID 04/24/15 Alprazolam [Xanax Xr] 0.25 mg PO BID 04/24/15 Levocarnitine Tartrate 500 mg PO TID 04/24/15 [l-Carnitine] Magnesium 3 tab PO DAILY 04/24/15 Niacin [Niacin ER] 1,000 mg PO QHS 04/24/15 levETIRAcetam tablet [Keppra 750 mg PO QHS 04/24/15 tablet] Calcium Carb/Vitamin D 2 tab PO BID 04/05/16 [Caltrate-600 With Vit D Tab] Co Q10 200 [Co Q-10] 100 mg PO DAILY 04/05/16 Folic Acid 1 mg PO DAILY@0800 04/05/16 Warfarin [Coumadin] 4 mg PO SUTUWETHSA 04/05/16 Warfarin [Coumadin] 3 mg PO MOFR 05/12/16 ranitidine HCl 150 mg tablet 150 mg PO QHS tab 09/24/17 venlafaxine 75 mg tablet 75 mg PO BID 04/28/18 flaxseed oil 5 ml MISCELLANEOUS ONCE ml 10/29/18 linaclotide 145 mcg capsule 72 mcg PO .qod cap 10/29/18 sacubitril 49 mg-valsartan 51 mg 1 tab PO BID #180 tab 12/17/18 tablet furosemide 40 mg tablet 40 mg PO DAILY #90 tab 02/01/19 carvedilol 3.125 mg tablet See Rx Instructions PO BID #270 tab 03/16/19 amiodarone 200 mg tablet 200 mg PO DAILY #60 tab 05/06/19 dextran 70-hypromellose 0.1 %-0.3 drp OPHTHALMIC ml 05/06/19 % eye drops rosuvastatin 20 mg tablet 20 mg PO QHS #90 tab 05/25/19 Surgical History: Surgical History (Last Reviewed 08/18/19 @ 15:25 by Tobias Padilla MD) Presence of biventricular implantable cardioverter-defibrillator (ICD) (Chronic) Onset Date: 03/05/18 Z95.810 06/30/2009 w/ battery change out 03/05/18 H/O mitral valve replacement (Chronic) Onset Date: 06/2006 Z95.2 History of left heart catheterization Onset Date: Z98.890 Surgical History: colectomy, pacemaker implantation Psychiatric History: Anxiety, Depression 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 Lives: Spouse/ Significant Other Smoking Status: Never smoker - *Family History Paternal Family History: Family History (Last Reviewed 08/18/19 @ 15:25 by Tobias Padilla MD) Father CAD (coronary artery disease) Mother CAD (coronary artery disease) History Items: No pertinent history Sibling Family History: Family History (Last Reviewed 08/18/19 @ 15:25 by Tobias Padilla MD) Father CAD (coronary artery disease) Mother CAD (coronary artery disease) History Items: - - Cerebellar ataxia Review of Systems Unable to obtain accurate/complete ROS d/t: See HPI Objective: All imaging was formally reviewed. Chest x-ray was relatively unremarkable. CT scan of the chest did not show any subsegmental collapse or endobronchial lesions. No significant mediastinal lymphadenopathy was appreciated. Patient does have a tortuous trachea, but this was relatively unchanged compared to previous Patient's last pulmonary function test was completed on 04/09/2018 and was within normal limits (FVC 104%, FEV1 100%, TLC 102%, DLCO 72%) Patient's last echocardiogram dated 06/02/2017 showed a moderately dilated LV with severe segmental systolic dysfunction and an EF of 20%. Severely enlarged left atrium and mildly enlarged right atrium noted. No mention of pulmonary artery pressures. - Physical Exam Vitals/I&O's: Vital Signs Temp Pulse Resp BP Pulse Ox 36.6 C 80 17 100/62 97 11/29/19 11:12 11/29/19 14:38 11/29/19 14:38 11/29/19 11:12 11/29/19 14:38 Oxygen Delivery Method Room Air Weight: 102.9 kg Body Mass Index (BMI) 29.9 General: Alert, Oriented x3, Cooperative, - - Mild distress. Poor vocalization, but not much different than baseline HEENT: Atraumatic, PERRLA, EOMI, Normocephalic, - - Some injection noted of the right eye. No discharge or periorbital swelling appreciated Oral: Moist Mucosa, No Gingival or Mucosal Lesions/ Ulcerations Neck: Supple, No JVD, No Nodes, Trachea Midline Lungs: No rhonchi, No wheeze, No rales, Diminished Cardiovascular: Normal S1, Normal S2, No murmurs, Irregular Rate, - - Valve click noted Abdomen: Bowel Sounds Present, Soft, Non Tender, Non-Distended, Obese Extremities: No clubbing, No cyanosis, No edema, Capillary Refill Less than 3 Seconds Skin: No rashes, No breakdown Musculoskeletal: No Tenderness to Palpation of Joints or Extremities Lymphatic: No Cervical, Supraclavicular, or Inguinal Adenopathy Neurological: - - Grossly unchanged from baseline neurologic exam. Psych/Mental Status: Anxious, Restless Laboratory Results 11/29/19 11:15: WBC 5.9, RBC 4.33, Hgb 14.3, Hct 43.9, MCV 101.4 H, MCH 33.0 H, MCHC 32.6, RDW Std Deviation 52.6 H, RDW Coeff of Loren 14.0, Plt Count 180, MPV 12.6 H, Immature Gran % (Auto) 0.200, Neut % (Auto) 72.1 H, Lymph % (Auto) 15.5 L, Cottle % (Auto) 9.3, Eos % (Auto) 1.9, Baso % (Auto) 1.0, Absolute Neuts (auto) 4.3, Absolute Lymphs (auto) 0.92, Nucleated RBC % 0 11/29/19 11:15: PT 32.0 H, INR 3.1 11/29/19 11:15: Sodium 140, Potassium 4.8, Chloride 109 H, Carbon Dioxide 29.0, Anion Gap 2 L, BUN 24 H, Creatinine 1.18 H, Estim Creat Clear Calc 49.03, Est GFR (MDRD) Af Amer 57 L, Est GFR (MDRD) Non-Af 47 L, BUN/Creatinine Ratio 20.3 H , Glucose 122 H, Calcium 8.8 Current Medications Sodium Chloride 1,000 ml/ N/A 1,000 mls @ 102.9 mls/hr IV .[id number] DORYS Stop: 11/30/19 13:01 Last Admin: 11/29/19 13:15 Dose: 1 ml/kg/hr, 102.9 mls/hr Documented by: Clinical Impression(s) from Imaging Studies Chest X-Ray 11/29/19 11:27 IMPRESSION: Findings suggest mild left basilar atelectasis. Cardiomegaly. Status post mitral valve replacement. Electronically Signed: Roc Gunn, at 11:48 EST , Service support , Chest CT 11/29/19 12:59 IMPRESSION: Findings suggest some scarring at the lung bases and lingular segment of the left upper lobe. Cardiomegaly and enlargement of the left atrium. Electronically Signed: Roc Gunn, at 14:20 EST , Service support , Assessment/Plan All Active Problems (Last Reviewed 08/18/19 @ 15:25 by Tobias Padilla MD) Hypotension (Resolved) RECOMMENDATIONS: 1. Walking oximetry in ER 2. Possible discharge 3. Swallow precautions for the next 4-5 days 4. Would hold off on any steroid therapy IMPRESSIONS: 1. Respiratory insufficiency secondary to acute aspiration Clinical suspicion for true aspiration event given clinical history. CT scan of the chest does not show any obvious intraluminal defect or subsegmental atelectasis and a pattern consistent with retained foreign body. Did discuss various options with the patient and her . Given lack of CT findings, they are very concerned about complications associated with conscious sedation. Patient currently is tolerating minimal nasal cannula oxygen. After review the risks, benefits and alternatives, no bronchoscopy will be pursued at this time. Patient has agreed to attempt a walking oximetry in the ER. If patient has paroxysmal type coughing or decompensation, observation status for 23 hours would be appropriate. If patient does well, discharge would be appropriate. Patient instructed to come back if another event happened. Patient should be using swallow precautions for the next 4 to 5 days at a minimum. Would defer to PCP if patient needs an outpatient swallow evaluation. Patient does not have significant scarring on CT scan of the chest that would suggest chronic aspi ration syndrome. Previous pulmonary function tests were within normal limits. If patient were to be discharged and return, bronchoscopy would likely be pursued unless cardiology expressed significant concerns. Code Visit Inpatient E&M: 85127 Init Hosp L3
--- NOTE | 2019-11-29 15:32 | PN_ITS ---
Progress Note I was asked to see the patient emergently at the request of Dr. Cooper for possible upper airway foreign body. The patient is an 74-year-old white female who was eating raisin Bran at approximately 9 this morning. At that time she had an event where she started choking. She felt like her voice was affected and then had significant coughing . She presented to the emergency room later that morning with continued sensation of shortness of breath change in voice although the coughing had subsided. A Heimlich maneuver was attempted in the emergency room with no expectoration of foreign material. Physical exam: Patient is awake alert. She is intermittently hoarse. She has a oxygen saturation of 94 to 97% on room air. I do not hear any audible stridor. She is coughing intermittently. Nasal exam reveals deviation septum to the right. Mouth oropharynx reveals no ulceration masses or lesions. Neck is supple no adenopathy. There is a thyroidectomy scar. Procedure: 4% topical lidocaine was placed in patient's left nasal cavity. A flexible bronchoscope inserted the patient's nose and passed into the nasopharynx. The nasopharynx base of tongue epiglottis and vallecula were all normal. The piriform sinuses were normal and free of any foreign body. The left vocal cord is immobile. The right vocal cord is moving although there is some minimal limitation on abduction. There is no immediate foreign body in the remote glottis. I could not visualize the subglottis well secondary to patient coughing. Assessment: Aspiration event with no evidence of laryngeal foreign body. 2. Left vocal cord paralysis with somewhat weak, but functional right vocal cord. Plan: I have recommended a pulmonary consult for probable bronchoscopy. STROKE Vital Signs/Narrative: Vital Signs Pulse Resp Pulse Ox 11/29/19 14:38 80 17 97
[2019-11-29 15:58] VITALS: BP 105/64; PULSE 68; RESP 18; O2SAT 96
== END 2019-11-29 15:59 | disposition home or self-care (01) ==
PROVIDERS: Emergency Provider Emergency Medicine; PCP Family Medicine
DX: T17.920A Food in respiratory tract, part unspecified causing asphyxiation, initial encounter (principal); X58.XXXA Exposure to other specified factors, initial encounter; Y93.89 Activity, other specified; Y92.9 Unspecified place or not applicable; J38.3 Other diseases of vocal cords; J38.01 Paralysis of vocal cords and larynx, unilateral; I10 Essential (primary) hypertension; E78.00 Pure hypercholesterolemia, unspecified; I42.8 Other cardiomyopathies; I48.19 Other persistent atrial fibrillation; I05.1 Rheumatic mitral insufficiency; I47.2 Ventricular tachycardia; G11.9 Hereditary ataxia, unspecified; Z95.0 Presence of cardiac pacemaker; Z95.2 Presence of prosthetic heart valve; Z79.01 Long term (current) use of anticoagulants; Z86.73 Personal history of transient ischemic attack (TIA), and cerebral infarction without residual deficits
CPT/HCPCS: 31622; 71045; 71260; 80048; 85025; 85610; 96361; 96374; 99285; J7030; Q9967

== ENCOUNTER 2019-12-17 15:00 | Outpatient (RCR) | payer MEDICARE, OTHER, SELFPAY ==
[2019-08-18 12:20] VITALS: BMI 29.0
--- NOTE | 2019-11-02 10:46 | HP.PTREVAL ---
Jr Baron MD, It has been my pleasure to treat ELIZABETH JOE over the last 54 visits for Cerebellar ataxia. Please see the progress note below for an update on the physical therapy plan of care! Subjective: No new changes for the better or worse. No pain. Objective/Function: Ambulated with walker Min A x 1 with WC follow. 45 feet then rest. 35 feet then rest. 32 feet then rest. then 10 feet: toltal 122 today. 4 sit to stadn transfers with Min A for balance, 4 stand to sit transfers with VC to use UE and minimal control on descent. Lungs are limiting factor in walkng. Pt looks warn out today after each ambulation and 10 feet on last one is shortest in a while. Steps are haphazard and poor motor control on placement. Pt is not progressing nor significantly digressing with her walking or transfers. She would be unable to walk with at home to maintain function due to safety concerns and his back and knee pain. Appropriate to continue maintenance therapy weekly with fair prognosis to meet goals. Plan Plan: weekly x 4-8 to cotin maintenance POC for gait and transfers. Goals Goal 1:: Maintain ability to walk 150 feet in a 30 minute session with Min A to help with endurance to continue ability to stadn and transfer for ADLs at home Goal Time Frame: 8-12 Weeks Goal Progress: Not today, but close, tania Goal 2:: Maintain ability to move sit to stand and back Mod I at walker to ensure continued home basic ADL ability Goal Time Frame: 8-12 Weeks Goal Progress: Min a for safety, approp. Goal 3:: Pt and to say that transitioning out of recliner at home back to no problem Goal Time Frame: 6-8 Weeks Goal Progress: pt statedit is OK Anticipated Interventions Patient/Client Instruction: Educate patient on: Condition, Plan of Care For the Purpose of:: To improve muscle performance and motor function Other: to maintain trasnfer ability. Therapeutic Exercise to Include: Strength training, Gait and locomotor training For the Purpose of:: To improve muscle performance and motor function, Other Other: to amintain functional ability at home. Please do not hesitate to contact me at [phone] by phone or if you have questions or concerns regarding this new plan of care! Sincerely, Jr Porras, DPT, OCS, CSCS
--- NOTE | 2019-12-10 09:59 | HP.PTREVAL ---
Jr Baron MD, It has been my pleasure to treat ELIZABETH JOE over the last 58 visits for Cerebellar ataxia. Please see the progress note below for an update on the physical therapy plan of care! Subjective: Was sick from aspirating last week. Then fell backwards tipping recliner and cancelled last weeks visit. Did not get hurt but took 2.5 hours to get up. back very painful today and even hard time pushing WC needing to sit in between wheelchair follows. Feels weaker overall. Objective/Function: pT VERY FATIGUED WITH AMBULATION AND LIMTIED BY LUNG TIREDNESS MORE THAN ANYTHING. STEPS DO GET SLOPPIER ADN SHORTER SHE GETS TIRED ADN NEEDS REST BETWEEN AMBULATION. ATAXIA IS STILL OBVIOUS WITH PLACING FOOT IN RIGHT POSITION AND SHIFTING WEIGHT BEING AN ISSUE THAT CAUSES INEFFICIENT AND NEED FOR ASSIST IN GAIT PATTERN. wALKING IS SHORTER DISTANCE TODAY THEN IN THE PAST, UNDERSTANDABLE WITH HER ROUGH WEEK LAST WEEK. WOULD BE UNABLE TO CONTINUE WALKING PT SAFELY AT HOME MAKING MAINTENANCE THERAPY FOR GAIT TRAINING APPROPRIATE WITH FAIR PROGNOSIS TO CONTINUE AMBULATION AND MAINTAIN CURRENT FUNCTIONAL STATUS. Plan Plan: WEEKLY FOR GAIT TRAINING AND MAINTENANCE OF GAIT AND TRANSFERS. Goals Goal 1:: Maintain ability to walk 150 feet in a 30 minute session with Min A to help with endurance to continue ability to stadn and transfer for ADLs at home Goal Time Frame: 8-12 Weeks Goal Progress: Not today, but close, tania Goal 2:: Maintain ability to move sit to stand and back Mod I at walker to ensure continued home basic ADL ability Goal Time Frame: 8-12 Weeks Goal Progress: Min a for safety, approp. Goal 3:: Pt and to say that transitioning out of recliner at home back to no problem Goal Time Frame: 6-8 Weeks Goal Progress: FELL LAST WEEK, Goal 4:: mAINTAIN ABILITY TO WALK 120-150 FEET IN 30 MINUTE SESSION WITH MIN A TO HELP MAINTAIN CURRENT FUNCTIONAL LEVELS AND ENCOURAGE MOBILITY/HEALTH OF TISSUE. Goal Time Frame: 2-4 Weeks Goal Progress: NEW GOAL Anticipated Interventions Patient/Client Instruction: Educate patient on: Condition, Plan of Care For the Purpose of:: To improve muscle performance and motor function Other: to maintain trasnfer ability. Therapeutic Exercise to Include: Strength training, Gait and locomotor training For the Purpose of:: To improve muscle performance and motor function, Other Other: to amintain functional ability at home. Please do not hesitate to contact me at [phone] by phone or if you have questions or concerns regarding this new plan of care! Sincerely, Jr Porras, DPT, OCS, CSCS
== END 2019-12-17 19:00 | disposition home or self-care (01) ==
LOC: PT 15:00
PROVIDERS: Family Provider Family Medicine; PCP Family Medicine; Referring Provider Family Medicine; Visit Provider Family Medicine
DX: R47.1 Dysarthria and anarthria (principal); G11.8 Other hereditary ataxias
CPT/HCPCS: 97116; 97530

== ENCOUNTER 2021-01-21 12:52 | Emergency (ER) | payer MEDICARE, OTHER, SELFPAY ==
[2020-04-26 08:45] VITALS: BMI 30.3
[2021-01-21 12:55] VITALS: BP 82/60; PULSE 80; RESP 14; TEMP 35.8; O2SAT 98; BMI 26.4
--- NOTE | 2021-01-21 13:04 | CT_ITS ---
STUDY: CT BRAIN WITHOUT CONTRAST REASON FOR EXAM: Female, 75 years old. head injury, off balance RADIATION DOSAGE (If Supplied By Facility): CTDIvol = ( 44.99 ) mGy, DLP = ( 863.60 ) mGycm TECHNIQUE: Transaxial CT imaging of the brain was performed without administration of intravenous contrast material. Individualized dose optimization techniques were used for this CT. COMPARISON: 01/11/2018 FINDINGS: Normal soft tissue structures. Normal calvarium. There is mild cerebral atrophy with widening of the extra-axial spaces and ventricular dilatation. There are areas of decreased attenuation within the white matter tracts of the supratentorial brain, consistent with microvascular disease changes. Normal basal ganglia and thalami. Normal brainstem. Normal cerebellum. There is no intracranial hemorrhage. There are no findings of an acute ischemic infarction. Normal visualized paranasal sinuses. CT/Brain/Head without Contrast IMPRESSION: No acute intracranial hemorrhage or mass effect. Electronically Signed: Diego Ivory MD ([place]) at 14:30 EDT , Service support ,
--- NOTE | 2021-01-21 13:06 | ED.VIS.GEN ---
History of Present Illness Chief Complaint: Fall Informant: Patient Narrative: 75-year-old female with cerebellar ataxia chronically presenting with head injury. Patient states that she fell over forward while trying to bend over in her wheelchair and lost her balance. She states she felt fine prior to this. She states the had no chest pain, palpitations, shortness of breath. She states she did not lose consciousness. She does not have a headache, any new symptoms. Patient at baseline has ataxia. She states she is not nauseous. She states she is not anything for pain. She sustained a laceration to the scalp at the top of her head. She denies neck pain or paresthesias. - Past Medical History (1) CVA (cerebral vascular accident) Status: Chronic (2) Chronic atrial flutter Status: Chronic (3) Hyperlipidemia Status: Chronic (4) Longstanding persistent atrial fibrillation Status: Chronic Comment: MAZE procedure w/ LAAL 06/2006 (5) Nonischemic cardiomyopathy Status: Chronic Past Medical History - Allergies and Home Meds Allergies/Adverse Reactions: Allergies Iodinated Contrast Media [Iodinated Contrast Media - IV Dye] Allergy (Intermediate, Verified 01/21/21 12:53) Rash Tetracyclines Adverse Reaction (Unknown, Verified 01/21/21 12:53) Rash wool Adverse Reaction (Verified 01/21/21 12:53) Rash chocolate Allergy (Mild, Uncoded 01/21/21 12:53) coughing/rash ragweed Allergy (Mild, Uncoded 01/21/21 12:53) red,itchy eyes beta cynthia Adverse Reaction (Intermediate, Uncoded 01/21/21 12:53) Unknown Primary Care Physician: Jr Baron MD [Primary Care Provider] - Prior records reviewed: Yes Surgical History: colectomy, pacemaker implantation Lives: Spouse/ Significant Other Smoking Status: Never smoker Alcohol: None Drugs: None - Family History Paternal Family History: Family History (Last Reviewed 04/26/20 @ 15:[address] Tobias Padilla MD) Father CAD (coronary artery disease) Mother CAD (coronary artery disease) Family History: Reports: No pertinent history Sibling Family History: Family History (Last Reviewed 04/26/20 @ 15:[address] Tobias Padilla MD) Father CAD (coronary artery disease) Mother CAD (coronary artery disease) Family History: Reports: - - Cerebellar ataxia Review of Systems General: Denies: Chills, Fever, Sweats Eyes: Denies: Visual changes - bilaterally, Diplopia ENT: Denies: Rhinorrhea, Sore throat Cardiovascular: Denies: Chest pain, Palpitations Respiratory: Denies: Dyspnea, Cough, Dyspnea on exertion Gastrointestinal: Denies: Abdominal pain, Nausea, Vomiting, Diarrhea, Melena, Hematochezia Genitourinary: Denies: Dysuria, Hematuria, Frequency Musculoskeletal: Denies: Neck pain, Back pain, Extremity Pain Skin: Reports: Wounds - Laceration to scalp Neurological: Reports: Headache, Weakness. Denies: Parasthesia Psych: Denies: Depression, Anxiety Physical Exam Vital Signs/Narrative: Vital Signs Temp Pulse Resp BP Pulse Ox 01/21/21 12:55 96.5 F L 80 14 82/60 L 98 Inital Vital Signs reviewed: Yes General: Well nourished, No Acute Distress Head: Normocephalic, Atraumatic Eyes: Perrl, EOMI ENT: Moist mucous membranes, No rhinorrhea Neck: - - No midline spinal tenderness, deformity, step-off. Cardiovascular: Regular rate, Regular rhythm Respiratory: No distress, CTA bilaterally Abdomen: Soft, Nontender, Nondistended Extremities: Nontender, No edema Skin: Normal color, No rash, - - 2 cm V-shaped laceration left of midline on the top of the scalp. No bone deformity or step-offs. No active bleeding. Neurological: Alert, Oriented x3 Psychological: Normal affect, Normal Mood Diagnostic/Tx/Re-eval Clinical Impression(s) from Imaging Studies Brain CT 01/21/21 13:04 IMPRESSION: No acute intracranial hemorrhage or mass effect. Electronically Signed: Diego Ivory MD ([place]) at 14:30 EDT , Service support , Laboratory Data 01/21/21 01/21/21 01/21/21 13:10 13:10 13:10 WBC 4.1 L RBC 4.24 Hgb 13.1 Hct 41.1 MCV 96.9 MCH 30.9 MCHC 31.9 L RDW Std Deviation 52.1 H RDW Coeff of Loren 14.6 Plt Count 141 L MPV 11.6 Immature Gran % (Auto) 0.500 Neut % (Auto) 61.9 Lymph % (Auto) 24.5 Worth % (Auto) 10.9 H Eos % (Auto) 1.5 Baso % (Auto) 0.7 Absolute Neuts (auto) 2.6 Absolute Lymphs (auto) 1.01 Nucleated RBC % 0 PT 32.9 H INR 3.3 Sodium 138 Potassium 3.7 Chloride 105 Carbon Dioxide 29.0 Anion Gap 4 L BUN 15 Creatinine 1.08 H Estim Creat Clear Calc 52.75 Est GFR (MDRD) Af Amer 63 Est GFR (MDRD) Non-Af 52 L BUN/Creatinine Ratio 13.9 Glucose 75 Calcium 9.0 - Medical Decision Making 75-year-old female presenting with mechanical fall she and her both state that she is unsteady due to cerebellar ataxia which is chronic. She has not had any new changes and does not feel unwell. She denies analgesia orally. She did get let gel placed on the scalp. I obtained a CT of the brain which was negative for acute intracranial process as interpreted by radiology. Patient's lab work-up was unremarkable. Patient's INR is therapeutic. Patient's wound was stapled please see procedure note. Patient and her were counseled on red flag signs which she can need to return to the ER for repeat evaluation. Patient does not have any signs or symptoms of concussion at this time. Patient stable discharge. Impression: 1. Mechanical fall 2. 2 cm scalp laceration Procedures - Lacerations No standard instances Depth: Skin Shape: Flap Prep: Sterile Conditions, Chlorhexadine Laceration repair: Irrigated, - - LET Irrigated (ml): 500 Number of Sutures/[place]: 2 Suture Information: - - [place] x2 ED Disposition - Plan for ED Patient: Disposition: Home or Assisted Living Instructions: ED Mechanical Fall, ED LASERASYON SA OMIDIT Ej o Chris Referrals: Jr Baron MD [Primary Care Provider] -
[2021-01-21] MEDS: Lidocaine/Epi/Tetracaine 50 ML 1 APPLIC TOPICAL (13:09)
[2021-01-21 13:22] LABS: Absolute Lymphocyte Count 1.01 X10^3/uL (0.83-4.51); Absolute Neutrophil Count 2.6 X10^3/uL (2.0-7.7); Basophil# 0.03 X10^3/uL; Basophil% 0.7 % (0-1); Eosinophil# 0.06 X10^3/uL; Eosinophils% 1.5 % (0-5); Hematocrit 41.1 % (37-47); Hemoglobin 13.1 g/dL (12.0-15.0); Lymphocyte # 1.01 X10^3/ul (4.0); Lymphocyte % 24.5 % (19-41); Mean Corp Hgb Conc 31.9 g/dL (32-36); Mean Corpuscular Hgb 30.9 pg (27.0-32.0); Mean Corpuscular Volume 96.9 fL (81-99); Mean Platelet Vol. 11.6 fl (6.2-12.0); Monocyte# 0.45 X10^3/uL; Monocyte% 10.9 % (0-10); NRBC Flagged by Analyzer 0 % (0-5); Neutrophil # 2.55 X10^3/uL (2.7-7.7); Neutrophil % 61.9 % (47-70); Platelet Count 141 K/mm3 (150-450); RBC Distribution Width CV 14.6 % (11.6-14.6); RBC Distribution Width SD 52.1 fl (35.1-43.9); Red Blood Count 4.24 M/mm3 (4.2-5.4); White Blood Count 4.1 K/mm3 (4.4-11.0)
[2021-01-21 13:34] LABS: Anion Gap 4 (5-15); BUN 15 mg/dL (7-18); BUN/Creat Ratio 13.9 RATIO (10-20); Chloride 105 mmol/L (98-107); Creatinine, Serum 1.08 mg/dL (0.55-1.02); EST Glomerular Filtration Rate 52 mL/min (>60); Est Glom Filt Rate - Afr Amer 63 mL/min (>60); Estimated Creatinine Clearance 52.75 ml/min; Glucose 75 mg/dL (74-106); Potassium 3.7 mmol/L (3.5-5.1); Sodium Level 138 mmol/L (136-145)
[2021-01-21 13:49] LABS: International Normalized Ratio 3.3; Prothrombin Time (Protime)PT. 32.9 SECONDS (11.7-14.9)
[2021-01-21 15:02] VITALS: BP 98/70; PULSE 81; RESP 15; O2SAT 96
== END 2021-01-21 15:23 | disposition home or self-care (01) ==
PROVIDERS: Emergency Provider Student in an Organized Health Care Education/Training Program; PCP Family Medicine
DX: S01.01XA Laceration without foreign body of scalp, initial encounter (principal); W05.0XXA Fall from non-moving wheelchair, initial encounter; Y93.9 Activity, unspecified; Y92.9 Unspecified place or not applicable; G11.9 Hereditary ataxia, unspecified; E78.5 Hyperlipidemia, unspecified; I48.11 Longstanding persistent atrial fibrillation; I48.92 Unspecified atrial flutter; I42.8 Other cardiomyopathies; Z86.73 Personal history of transient ischemic attack (TIA), and cerebral infarction without residual deficits; Z95.0 Presence of cardiac pacemaker; Z79.01 Long term (current) use of anticoagulants; Z79.899 Other long term (current) drug therapy
CPT/HCPCS: 12001; 70450; 80048; 85025; 85610; 99285; A4216

== ENCOUNTER → 2021-02-09 12:49 | Outpatient (CLI) | payer MEDICARE, OTHER, SELFPAY ==
[2021-01-21 12:55] VITALS: BMI 26.4
--- NOTE | 2021-02-09 13:58 | SP.MBSS_ITS ---
Modified Barium Swallow - Patient Information Study Date: 02/09/21 Study Time: 13:00 Direct Billable Minutes: 120 Total Minutes procedure & reportin Diagnosis: dysphagia, unspecified (R13.10) Referring Physician: Jr Baron Reason for Referral: To objectively assess oropharyngeal swallow function and determine presence of aspiration. Medical History: Patient is a 75/F with past medical history significant for cerebellar ataxia, hx of CVA, atrial fibrillation, and nonischemic cardiomyopathy. Patient has had previous MBS study at [facility] in April 2018 and outpatient speech therapy in September of 2019. Current Diet Ordered: soft textures/thin liquids Dentition: Natural Teeth Mental Status: WNL Respiratory Status: Oxygenating on Room Air - Study Findings Consistencies: Thin Liquid, [place] Thick Liquid, Honey Thick Liquid, Pudding, Cookie - Penetration-Aspiration Scale Penetration-Aspiration Scale: OBJECTIVE ASSESSMENT OF SWALLOW FUNCTION (QUANTITATIVE ? PER TRIAL): PENETRATION / ASPIRATION SCALE (NICHOLAS): 1 = does not enter airway 2 = enters airway/above vocal folds/ejected 3 = enters airway/above vocal folds/not ejected 4 = enters airway/contacts vocal folds/ejected 5 = enters airway/contacts vocal folds/not ejected 6 = enters airway/below vocal folds/ejected 7 = enters airway/below vocal folds/not ejected despite effort 8 = enters airway/below vocal folds/no effort - Penetration-Aspiration Scale Score Thin Liquid via teaspoon Result: 1= does not enter airway Thin Liquid via teaspoon Trial 2 Result: 2= enter airway/above vocal folds/ejected Thin Liquid via small single sip from cup Result: 1= does not enter airway Thin Liquid via large single sip from cup Result: 4= enters airway/contacts vocal folds/ejected [place] Thick Liquid via large single sip from cup Result: 2= enter airway/above vocal folds/ejected Honey Thick Liquid via large single sip from cup Result: 2= enter airway/above vocal folds/ejected Pudding via teaspoon Result: 1= does not enter airway Cookie Result: 1= does not enter airway Thin Liquid via single sip from straw Result: 4= enters airway/contacts vocal folds/ejected Thin Liquid via large single sip from cup Chin tuck Result: 4= enters airway/contacts vocal folds/ejected Thin Liquid via small single sip from cup Chin tuck Result: 1= does not enter airway - Oral Phase Labial Seal: No Labial Escape Tongue Control During Bolus Hold: Posterior escape of less than half of bolus Bolus Preparation/Mastication: Slow prolonged chewing/mashing with complete recollection Bolus Transport/Lingual Motion: Brisk tongue motion Oral Residue: Residue collection on oral structures - Pharyngeal Phase Initiation of Pharyngeal Swallow: Bolus head in pyriforms Soft Palate Elevation: No bolus between soft palate and pharyngeal wall Laryngeal Elevation: Partial superior movement thyroid cart/partial apprx aryt- epig petiole Anterior Hyoid Excursion: Partial anterior movement Epiglottic Movement: Partial inversion Laryngeal Vestibule Closure at Height of Swallow: Incomplete; narrow column of air/contrast in laryngeal vestibule Pharyngeal Stripping Wave: Present - diminished Pharyngoesophageal Segment Opening: Parital distension and partial duration; pa rital obstruction of flow Tongue Base Retraction: Trace column of contrast between tongue base & post. pharyngeal wall Pharyngeal Residue: Collection of residue within or on pharyngeal structures - Diagnosis/Impression Diagnosis: mild-moderate oropharyngeal dysphagia (R13.12) Impression: Oral phase characterized by slow mastication and bolus manipulation of pudding texture requiring 3 piecemeal swallows to effectively clear oral cavity. Pharyngeal phase characterized by less than ideal placement of the bolus (pyriforms) upon swallow onset. Patient presented with decreased laryngeal vestibule closure, inconsistent epiglottic inversion, and partial anterior hyoid excursion resulting in pharyngeal residue in both the vallecula and pyriforms. The patient was found to have penetration to or above the vocal cords (with ejection) with larger single sips of thin, mildly thick, and moderately thick liquids. No aspiration found. When patient trialed thin liquids via small single sips from the cup either with or without a chin tuck, patient tolerated well with no penetration or aspiration. - Recommendations Diet: Thin Liquids Comment: soft and bite sized textures Compensatory Strategies: Small Bites, Small Sips - very small sips one at a time, No Straws, Slow Rate, Sitting upright, Remain sitting upright for 30 minutes after PO intake Supervision: Distant Supervision Recommend Repeat Modified Barium Swallow: TBD Need for Skilled Speech Therapy Services: No Education Completed: 1. Described result of evaluation., 2. Pt understands evaluation & agrees with goals and treatment plan., 4. Family/caregivers understand evaluation & agree w/ goals & tx plan. - Status Active ST Patient: Active - Contact Information [facility] Speech Therapy:: Deepika Morris MA, CCC-SPEECH LANGUAGE PATHOLOGIST PRN [address] [id number] [email or web address]
== END ==
PROVIDERS: PCP Family Medicine; Referring Provider Family Medicine; Visit Provider Family Medicine
DX: G11.9 Hereditary ataxia, unspecified (principal); Z86.73 Personal history of transient ischemic attack (TIA), and cerebral infarction without residual deficits
CPT/HCPCS: 74230; 92611

== ENCOUNTER 2021-05-15 10:00 | Outpatient (RCR) | payer MEDICARE, OTHER, SELFPAY ==
[2020-04-26 08:45] VITALS: BMI 30.3
--- NOTE | 2021-01-19 15:50 | HP.PTEVAL ---
Patient's Visit Information ELIZABETH JOE is a 75 year old F referred to Physical Therapy by Dr. Evangelista Del Cid MD with a diagnosis of Spinocerebellar ataxia. Date of Evaluation: 01/19/21 Physical Therapist: Jr Porras DPT, OCS, CSCS - Visit Plan Frequency: 1x/Week Duration: 3 Months Plan: weekly x 8-12 for. 1. gait training with walker. 2. trunk strength in unsupported sitting. - Subjective Swallowing has been harder recently but otherwise. Has not been walking in the last year . Sitting exercises dialy. Standing to transfer. Transfers not as easy as a year ago. Moving in bed OK. with her when she transfers. No pain. helps dressing and bathing. . Otherwise not much has changed medically over the ast year. Stopped comin gdue to covid and is now fully vaccinated and ready to come back. Has walked nil in the last year. Stills tands to [facility] with husbands help. unable to help her walk over last year due to his health concerns. No pain. - Objective Pt pushed back to PT in WC able to elevate legs. This is her main method of mobility, reliant on . LE and UE AROM WFL but obviously ataxic and poor motor control in movements distally more so than proximally. Hard vinh tapping my finger with either of her fingers. Much harder when I make her sit without support. She is more ataxic without support. Needs SBA assist to sit without support and CGA to min A when asked to do a task with UE sitting without support. Loses balance to side often with reaching. Sit to stand at walker Corrie for balance. Stand at walker for 60 seconds with SBA, with one hand on walker with CGA, Only one second without any hands on walker, very ataxic adn Min A for balance, dysfunctional. Stand to sit with VC hard landing but mod I outside of baalnye, CGA for balance. Walks with walker today with min to mod A due to ataxia for balance 27 feet then 12 feet after a 5 minute rest. Limited by fatigue in lungs as usual and a little leg tiredness today. Overall self limited from another walk. LE strength to one time test ankle with poor motor control but 3+ strength, knees 4/5 strength HSC adn 4- in knee ext B. Hip flexion4- and abduction 3+. Overall similar presentation to last therapy attendance over one year ago except for more limited walking distance and more assist needed in unsupported sitting. Not a functional walker but needs to walk for health of body and bones. hard time placing feet in right position with walking fabricio throws her balacne off with each step, constant readiness from therapist needed. Mild SOB after ambulating but recovers quickly 3-4 minutes. - Goals Goal 1:: LT: Pt back to ambulating total of 100 feet in a 30 minute session with Min A Goal Time Frame: 8-12 Weeks Goal 2:: Sit unsupported and reach for target safely 3/4x Goal Time Frame: 8-12 Weeks Goal 3:: ST: Walk 20 feet 3 x in therapy with Min a Goal Time Frame: 4-6 Weeks - Rehabilitation Potential Physical Therapy Diagnosis: Unsteady gait due to SCA and limited walking Rehabilitation Potential: Fair - Anticipated Interventions Patient/Client Instruction: Educate patient on: Condition, Plan of Care For the Purpose of:: To improve gait and locomotor functions Therapeutic Exercise to Include: Strength training, Postural training, Gait and locomotor training For the Purpose of:: To improve ability of physical actions for home/community/work/leisure, To improve gait and locomotor functions Thank you for the opportunity to evaluate your patient. For Medicare and Medicare HMO plans, please review the plan of care and approve it. It will need to be FAXED BACK to us at [phone] for Medicare purposes. For Medicare only, by signing this I certify the plan of care. Please let me know if there are questions or concerns regarding this plan of care. Physician Signature: Date:
--- NOTE | 2021-03-05 10:28 | HP.PTREVAL ---
Dr. 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 Please see the progress note below for an update on the physical therapy plan of care! Subjective: No pain, thinking she might want to come in more often but thinks better of it at the end. No pain. Objective/Function: Pt with good step length today, veers R possibly due to eyesight? but good stable steps, no pain and improving distances over the last month. Appropriate to continue POC to ew goals as current goals have been met. Fair prognosis Plan Plan: weekly for gait ex to cotninue to progress distances 8 weeks to end April Goals Goal 1:: LT: Pt back to ambulating total of 100 feet in a 30 minute session with Min A Goal Time Frame: 8-12 Weeks Goal Progress: Goal Met Goal 2:: Sit unsupported and reach for target safely 3/4x Goal Time Frame: 8-12 Weeks Goal Progress: Goal Met Goal 3:: ST: Walk 20 feet 3 x in therapy with Min a Goal Time Frame: 4-6 Weeks Goal Progress: Goal Met Goal 4:: walk 120 feet in a 30 minute session with 3-4 walks(3 rests) Goal Time Frame: 8-12 Weeks Goal 5:: Walk 50 feet consistently without needing a rest 1x during session Goal Time Frame: 8-12 Weeks Anticipated Interventions Patient/Client Instruction: Educate patient on: Condition, Plan of Care For the Purpose of:: To improve gait and locomotor functions Therapeutic Exercise to Include: Strength training, Postural training, Gait and locomotor training For the Purpose of:: To improve ability of physical actions for home/community/work/leisure, To improve gait and locomotor functions Please do not hesitate to contact me at [phone] by phone or if you have questions or concerns regarding this new plan of care! Sincerely, Jr Porras, DPT, OCS, CSCS
--- NOTE | 2021-04-23 13:49 | HP.PTREVAL_ITS ---
Dr. Evangelisat Del Cid MD, It has been my pleasure to treat ELIZABETH JOE over the last 13 visits for Spinocerebellar ataxia. Please see the progress note below for an update on the physical therapy plan of care! Subjective: Pt will see Dr. Del Cid at some point in the future. She is doing status quo. Blood pressure meds controlling low blood pressure. Doing exercises at home intermittently but unable to walk at home as it is too dangerous and has medical problems too. Trasnfer are going OK with his help and wants to cotninue to work on gait. I about senior care back to pre covid levels. Objective/Function: Pt at 100 feet total today and significantly better than last session(it was in the afternoon). Overall, she is slowly improving with disatnce and fatigue levels and is still shy of precovid levels where she was walking well over 100 feet and sometimes 150 in a half hour session with Min A and typically 3 rests. Is curently having about 2 minute rests in between walks. Also has ataxia in foot placement with ambulation especialy when she gets tired. Assist is mostly for balance due to ataxia. Current goals are appropriate and shows slight progression toward them, new maintenance goal set and fair prognosis. Plan Plan: weekly pt wants to continue and is appropriate for maintenance adn progression of walking ability to aid with leg strength, mobility in transfers and overall health. She would be unable to do this at home due to safety issues. Goals Goal 1:: Maintain ability for walking 100 feet in 30 minute session with 3 rests with Min A Goal Time Frame: 8-12 Weeks Goal Progress: NEW GOAL Goal 2:: Sit unsupported and reach for target safely 3/4x Goal Time Frame: 8-12 Weeks Goal Progress: Goal Met Goal 3:: ST: Walk 20 feet 3 x in therapy with Min a Goal Time Frame: 4-6 Weeks Goal Progress: Goal Met Goal 4:: walk 120 feet in a 30 minute session with 3-4 walks(3 rests) Goal Time Frame: 8-12 Weeks Goal Progress: 100 feet, approp. Goal 5:: Walk 50 feet consistently without needing a rest 1x during session Goal Time Frame: 8-12 Weeks Goal Progress: 30 feet today , approp Anticipated Interventions Patient/Client Instruction: Educate patient on: Condition, Plan of Care For the Purpose of:: To improve gait and locomotor functions Therapeutic Exercise to Include: Strength training, Postural training, Gait and locomotor training For the Purpose of:: To improve ability of physical actions for home/community/work/leisure, To improve gait and locomotor functions Please do not hesitate to contact me at [phone] by phone or Fax: if you have questions or concerns regarding this new plan of care! Sincerely, Jr Porras, LEAHT, OCS, CSCS
--- NOTE | 2021-06-05 16:15 | HP.PT.NRP ---
ELIZABETH JOE was seen in my office for initial evaluation on 01/19/21. The following Plan of Care was established for this patient: Initial Frequency: 1x/Week Initial Duration: 3 Months Patient/Client Instruction: Educate patient on: Condition, Plan of Care For the Purpose of:: To improve gait and locomotor functions Therapeutic Exercise to Include: Strength training, Postural training, Gait and locomotor training For the Purpose of:: To improve ability of physical actions for home/community/work/leisure, To improve gait and locomotor functions This patient was last seen in our office 05/15/21. Pertinent comments regarding their Physical therapy will appear below: Pt has and will be discontinued from PT at this time. At this point I will be discontinuing this patient from physical therapy. I would be happy to see this patient again in the future if found appropriate by the physician. Thank you! Jr Porras, DPT, OCS, CSCS Balance/Gait/Functional tests - Balance/Special Test Scores Lower Extremity Functional Score: 5
== END 2021-05-15 19:00 | disposition home or self-care (01) ==
LOC: PT 10:00
PROVIDERS: PCP Family Medicine; Referring Provider Psychiatry & Neurology Sleep Medicine; Visit Provider Psychiatry & Neurology Sleep Medicine
DX: G11.8 Other hereditary ataxias (principal); Z86.73 Personal history of transient ischemic attack (TIA), and cerebral infarction without residual deficits
CPT/HCPCS: 97110; 97116; 97162

== ENCOUNTER 2021-05-23 00:46 | Inpatient (IN) | payer MEDICARE, OTHER, SELFPAY ==
[2021-02-20 14:52] VITALS: BMI 30.3
[2021-05-23] VITALS (23 sets, daily range): BP systolic 82–114; BP diastolic 50–69; PULSE 79–95; RESP 16–24; TEMP 36.2–37; O2SAT 80–98; BMI 25.5; BMI 24.1
--- NOTE | 2021-05-23 01:18 | EKG12_ITS ---
Test Reason : WEAKNESS Blood Pressure : / mmHG Vent. Rate : 080 BPM Atrial Rate : 080 BPM P-R Int : 000 ms QRS Dur : 226 ms QT Int : 562 ms P-R-T Axes : 000 -43 127 degrees QTc Int : 648 ms Ventricular-paced rhythm Abnormal ECG Confirmed by INOCENCIO BARRY, NORBERTO ([id number]), sound editor ZULLY BRITTON ([id number]) on 05/25/2021 9:24:11 AM Referred By: REBECCA Confirmed By:FIDENCIO PAINTER MD
[2021-05-23] MEDS: 0.9% Normal Saline 1,000 ML 150 ML IV (01:38)
[2021-05-23 01:43] LABS: Absolute Lymphocyte Count 0.59 X10^3/uL (0.83-4.51); Absolute Neutrophil Count 4.8 X10^3/uL (2.0-7.7); Basophil# 0.02 X10^3/uL; Basophil% 0.3 % (0-1); Eosinophil# 0.01 X10^3/uL; Eosinophils% 0.2 % (0-5); Hematocrit 38.5 % (37-47); Hemoglobin 12.4 g/dL (12.0-15.0); Lymphocyte # 0.59 X10^3/ul (0.83-4.51); Lymphocyte % 9.7 % (19-41); Mean Corp Hgb Conc 32.2 g/dL (32-36); Mean Corpuscular Hgb 28.2 pg (27.0-32.0); Mean Corpuscular Volume 87.5 fL (81-99); Mean Platelet Vol. 12.3 fl (6.2-12.0); Monocyte# 0.63 X10^3/uL; Monocyte% 10.3 % (0-10); NRBC Flagged by Analyzer 0 % (0-5); Neutrophil # 4.84 X10^3/uL (2.7-7.7); Neutrophil % 79.2 % (47-70); POSITIVE DIFFERENTIAL YES; Platelet Count 192 K/mm3 (150-450); RBC Distribution Width CV 16.6 % (11.6-14.6); White Blood Count 6.1 K/mm3 (4.4-11.0)
[2021-05-23 01:44] LABS: Differential Indicated SCAN CRITERIA MET
[2021-05-23 01:57] LABS: Anion Gap 7 (5-15); BUN 18 mg/dL (7-18); BUN/Creat Ratio 20.5 RATIO (10-20); Calcium,Total 8.6 mg/dL (8.5-10.1); Chloride 106 mmol/L (98-107); Creatinine, Serum 0.88 mg/dL (0.55-1.02); EST Glomerular Filtration Rate 67 mL/min (>60); Est Glom Filt Rate - Afr Amer 80 mL/min (>60); Estimated Creatinine Clearance 65.67 ml/min; Glucose 141 mg/dL (74-106); Potassium 4.1 mmol/L (3.5-5.1); Sodium Level 139 mmol/L (136-145)
[2021-05-23 02:31] LABS: Bacteria 0 SEEN /hpf (None Seen); Mucous, Urine 0 SEEN /hpf (<or=2+); Red Blood Cells-Urine 0 SEEN /hpf (0-5); Squamous Epithelial Cells - UA 0 SEEN /hpf (5-10); White Blood Cells 0 SEEN /hpf (0-5)
[2021-05-23 02:39] LABS: Color, Urine Yellow (Yellow); Glucose, Dipstick Normal (Normal); Ketone-Dipstick Negative (Negative); Leukocyte Esterase-Dipstick 25 /ul (Negative); Nitrite-Dipstick Negative (Negative); Occult Blood-Urine Negative /ul (Negative); Protein-Dipstick 30 mg/dl (Negative); Specific Gravity, Urine 1.015 (1.002-1.030); Urine Bilirubin Dipstick Negative (Negative); Urine Clarity Clear (Clear); Urine Urobilinogen Normal (Normal)
--- NOTE | 2021-05-23 02:54 | EDS_ITS ---
HPI History of Present Illness Chief Complaint: Weakness Informant: patient and spouse/S.O. Onset/Context/Timing Onset: Month(s) Context: Gradual Onset Current Severity: Moderate Maximum Severity: Moderate Narrative Narrative: Patient presents with secondary to increasing weakness and unable to transfer. Patient's has been helping her do transfers for quite some time. She has had increasing weakness for the last several months and today he was unable to transfer her himself. EMS was called to the home twice today to help move her. Patient denies pain at this time. She denies paresthesias in her legs. No recent falls. 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 Seizures Spinocerebellar ataxia Home Medications alpha lipoic acid 200 mg PO TID 04/24/15 [History Last Taken Unknown] alprazolam 0.25 mg PO BID 04/24/15 [History Last Taken 03/05/18] levocarnitine tartrate 500 mg PO TID 04/24/15 [History Last Taken Unknown] niacin 1,000 mg PO BID 04/24/15 [History Last Taken Unknown] calcium carbonate-vitamin D3 2 tab PO BID 04/05/16 [History Last Taken 03/05/18] coenzyme Q10 100 mg PO DAILY 04/05/16 [History Last Taken Unknown] folic acid 1 mg PO DAILY@0800 04/05/16 [History Last Taken Unknown] warfarin 2 mg PO SUTUWETHFRSA 04/05/16 [History Last Taken Unknown] warfarin 2 mg PO MO 05/12/16 [History Last Taken 06/02/16 3 mg] flaxseed oil 5 ml MISCELLANEOUS ONCE ml 10/29/18 [History Last Taken Unknown] dextran 70-hypromellose 0.1 %-0.3 % eye drops 1 drp OPHTHALMIC DAILY ml 05/06/19 [History Last Taken Unknown] amiodarone 200 mg tablet 200 mg PO DAILY #90 tab 04/17/20 [Rx Last Taken U nknown] rosuvastatin 20 mg tablet 20 mg PO QHS #90 tab 05/17/20 [Rx Last Taken Unknown] furosemide 40 mg tablet 40 mg PO DAILY #90 tab 02/16/21 [Rx Last Taken Unknown] linaclotide 72 mcg capsule 72 mcg PO DAILY cap 02/20/21 [History Last Taken Unknown] magnesium 250 mg tablet 500 mg PO DAILY tab 02/20/21 [History Last Taken Unknown] carvedilol 3.125 mg tablet See Rx Instructions PO BID #270 tab 05/18/21 [Rx Last Taken Unknown] quetiapine [Seroquel] 25 mg PO BID 05/23/21 [History Last Taken Unknown] Allergy/AdvReac Type Severity Reaction Status Date / Time Iodinated Contrast Media Allergy Intermediate Rash Verified 02/20/21 10:25 [Iodinated Contrast Media - IV Dye] Tetracyclines AdvReac Unknown Rash Verified 02/20/21 10:25 wool AdvReac Rash Verified 02/20/21 10:25 chocolate Allergy Mild coughing/ra Uncoded 02/20/21 10:25 sh ragweed Allergy Mild red,itchy Uncoded 02/20/21 10:25 eyes beta cynthia AdvReac Intermediate Unknown Uncoded 02/20/21 10:25 Family History Father CAD (coronary artery disease) Mother CAD (coronary artery disease) CABG Surgical History H/O mitral valve replacement (06/2006) History of left heart catheterization (2005) Presence of biventricular implantable cardioverter-defibrillator (ICD) (03/05/18) Social History Smoking Status: Never smoker alcohol intake: never substance use type: does not use what type of physical activity do you participate in: walking and weight training frequency: daily duration: 15-30 minutes/day ROS ROS ED Constitutional Constitutional ED: Denies chills or fever(s) Eyes Eyes: Denies change in vision ENT ENT ED: Denies sore throat Cardiovascular Cardiovascular: Denies chest pain Respiratory/Chest Respiratory/Chest: Denies cough or dyspnea Gastrointestinal Gastrointestinal: Denies abdominal pain, diarrhea, nausea or vomiting Genitourinary Genitourinary ED: Denies dysuria Musculoskeletal Musculoskeletal: Denies back pain Integumentary Denies rash Neurologic Neurologic: Reports weakness; Denies headache(s) Psychiatric Psychiatric: Denies anxiety or depression Allergic/Immunologic Allergic/Immunologic ED: Denies urticaria EXAM Physical Exam Const Vital Signs: 05/23/21 00:47 05/23/21 00:50 05/23/21 01:46 Temperature 98.6 F 98.6 F Temperature Source Temporal Temporal Pulse Rate 91 91 81 Respiratory Rate 16 22 H 21 H Respiratory Pattern Normal Blood Pressure 97/62 97/62 91/53 L Blood Pressure Mean 73 73 65 Pulse Ox 94 94 96 Oxygen Delivery Method Room Air Room Air Nasal Cannula Oxygen Flow Rate (L/min) 2 05/23/21 02:25 Temperature Temperature Source Pulse Rate 80 Respiratory Rate 18 Respiratory Pattern Blood Pressure 90/55 L Blood Pressure Mean 66 Pulse Ox 95 Oxygen Delivery Method Nasal Cannula Oxygen Flow Rate (L/min) 2 Positive well nourished and well developed General Appearance ED: well developed Eyes EOMs intact bilaterally Neck supple Chest Wall inspection of chest normal and palpation of chest normal Resp normal respiratory effort and clear to auscultation bilaterally Cardio regular rate and regular rhythm GI normal to inspection, nondistended, normoactive bowel sounds and non-tender Palpation: soft Extremity Extremity Narrative: Patient able to hold both legs up off the bed without difficulty. Normal sensation and strong distal pulses. Neuro oriented x3 Sensorium / Orientation: alert Skin no rashes or lesions noted MDM MDM MDM Narrative Medical decision making narrative: Labs, urinalysis obtained. Lab Data Attestation: I reviewed the patient's lab results. Labs: Laboratory Results - last 24 hr 05/23/21 05/23/21 05/23/21 01:32 01:32 02:22 WBC 6.1 RBC 4.40 Hgb 12.4 Hct 38.5 MCV 87.5 MCH 28.2 MCHC 32.2 RDW Std Deviation 52.0 H RDW Coeff of Loren 16.6 H Plt Count 192 MPV 12.3 H Immature Gran % (Auto) 0.300 Neut % (Auto) 79.2 H Lymph % (Auto) 9.7 L [place] % (Auto) 10.3 H Eos % (Auto) 0.2 Baso % (Auto) 0.3 Absolute Neuts (auto) 4.8 Absolute Lymphs (auto) 0.59 L Nucleated RBC % 0 Sodium 139 Potassium 4.1 Chloride 106 Carbon Dioxide 26.0 Anion Gap 7 BUN 18 Creatinine 0.88 Estim Creat Clear Calc 65.67 Est GFR (MDRD) Af Amer 80 Est GFR (MDRD) Non-Af 67 BUN/Creatinine Ratio 20.5 H Glucose 141 H Calcium 8.6 Urine Color Yellow Urine Clarity Clear Urine pH 5.0 Ur Specific [place] 1.015 Urine Protein 30 H Urine Glucose (UA) Normal Urine Ketones Negative Urine Occult Blood Negative Urine Nitrite Negative Urine Bilirubin Negative Urine Urobilinogen Normal Ur Leukocyte Esterase 25 H Urine RBC 0 SEEN Urine WBC 0 SEEN Ur Squamous Epith Cells 0 SEEN Urine Bacteria 0 SEEN Urine Mucus 0 SEEN EKG Initial EKG: Attestation: I personally reviewed and interpreted this EKG as follows: Interpretation: - (Ventricular paced rhythm at 80 bpm.) Treatment and Re-Evaluation Comments:: Test results reviewed and did not reveal obvious cause of weakness such as electrolyte abnormality or UTI. Patient be discussed with hospitalist for overnight admission and evaluation by physical therapy. Patient may need admission to rehab unit or placement in local [facility] for strength building. Discharge Plan Triage Chief Complaint: Weakness ED Provider: Barbara Couch Dx/Rx/DC Orders Clinical Impression: Weakness Prescriptions: No Action flaxseed oil oil 5 ml miscellaneous ONCE RF: 0 Natural Balance Tears 0.1-0.3 % drops 1 drp OPHTHALMIC DAILY RF: 0 Linzess 72 mcg capsule 72 mcg PO DAILY RF: 0 niacin 1,000 MG tablet extended release 24 hr 1,000 mg PO BID RF: 0 alprazolam 0.5 MG tablet extended release 24 hr 0.25 mg PO BID RF: 0 levocarnitine tartrate 500 MG capsule 500 mg PO TID RF: 0 alpha lipoic acid 600 MG capsule 200 mg PO TID RF: 0 magnesium 250 mg tablet 500 mg PO DAILY RF: 0 warfarin 2 MG tablet 2 mg PO SUTUWETHFRSA RF: 0 folic acid 1 MG tablet 1 mg PO DAILY@0800 RF: 0 coenzyme Q10 100 MG capsule 100 mg PO DAILY RF: 0 calcium carbonate-vitamin D3 1 TAB tablet 2 tab PO BID RF: 0 warfarin 3 MG tablet 2 mg PO MO RF: 0 quetiapine [Seroquel] 25 mg Tablet 25 mg PO BID RF: 0 amiodarone 200 mg tablet 200 mg PO DAILY Qty: 90 RF: 3 rosuvastatin 20 mg tablet 20 mg PO QHS Qty: 90 RF: 3 furosemide 40 mg tablet 40 mg PO DAILY Qty: 90 RF: 4 carvedilol 3.125 mg tablet See Rx Instructions PO BID Qty: 270 RF: 3 Primary Care Provider: Jr Baron Referrals: Jr Baron MD [Primary Care Provider] - Disposition Disposition: Acute Care Hospital [facility]
[2021-05-23 03:21] LABS: International Normalized Ratio 3.6; Prothrombin Time (Protime)PT. 34.8 SECONDS (11.7-14.9)
--- NOTE | 2021-05-23 03:52 | PCM.HP.STD ---
HPI - General General Date of Admission: 05/23/21 HPI Narrative ELIZABETH JOE, is a 76 F with history of spinocerebellar ataxia and other multiple comorbidities was brought into ER by her for progressive weakness, declining physical functional activity and unable to transfer over past 4 to 6 months. Patient also slid down from the bed yesterday. Patient has gait disequilibrium, easily gets off balance and requires assistance for movement even going to bathroom. 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 She also has artificial mitral valve replacement, persistent A. fib on Coumadin and defibrillator. Denies any acute change in muscle strength of legs or change in sensation but gradually worsening. INR 3.6. Twelve-lead EKG shows ventricular paced rhythm at 80 bpm. 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 Seizures Spinocerebellar ataxia Home Medications alpha lipoic acid 200 mg PO TID 04/24/15 [History Last Taken Unknown] alprazolam 0.25 mg PO BID 04/24/15 [History Last Taken 03/05/18] levocarnitine tartrate 500 mg PO TID 04/24/15 [History Last Taken Unknown] niacin 1,000 mg PO BID 04/24/15 [History Last Taken Unknown] calcium carbonate-vitamin D3 2 tab PO BID 04/05/16 [History Last Taken 03/05/18] coenzyme Q10 100 mg PO DAILY 04/05/16 [History Last Taken Unknown] folic acid 1 mg PO DAILY@0800 04/05/16 [History Last Taken Unknown] warfarin 2 mg PO SUTUWETHFRSA 04/05/16 [History Last Taken Unknown] warfarin 2 mg PO MO 05/12/16 [History Last Taken 06/02/16 3 mg] flaxseed oil 5 ml MISCELLANEOUS ONCE ml 10/29/18 [History Last Taken Unknown] dextran 70-hypromellose 0.1 %-0.3 % eye drops 1 drp OPHTHALMIC DAILY ml 05/06/19 [History Last Taken Unknown] amiodarone 200 mg tablet 200 mg PO DAILY #90 tab 04/17/20 [Rx Last Taken Unknown] rosuvastatin 20 mg tablet 20 mg PO QHS #90 tab 05/17/20 [Rx Last Taken Unknown] furosemide 40 mg tablet 40 mg PO DAILY #90 tab 02/16/21 [Rx Last Taken Unknown] linaclotide 72 mcg capsule 72 mcg PO DAILY cap 02/20/21 [History Last Taken Unknown] magnesium 250 mg tablet 500 mg PO DAILY tab 02/20/21 [History Last Taken Unknown] carvedilol 3.125 mg tablet See Rx Instructions PO BID #270 tab 05/18/21 [Rx Last Taken Unknown] quetiapine [Seroquel] 25 mg PO BID 05/23/21 [History Last Taken Unknown] Allergy/AdvReac Type Severity Reaction Status Date / Time Iodinated Contrast Media Allergy Intermediate Rash Verified 02/20/21 10:25 [Iodinated Contrast Media - IV Dye] Tetracyclines AdvReac Unknown Rash Verified 02/20/21 10:25 wool AdvReac Rash Verified 02/20/21 10:25 chocolate Allergy Mild coughing/ra Uncoded 02/20/21 10:25 sh ragweed Allergy Mild red,itchy Uncoded 02/20/21 10:25 eyes beta cynthia AdvReac Intermediate Unknown Uncoded 02/20/21 10:25 Family History Father CAD (coronary artery disease) Mother CAD (coronary artery disease) CABG Surgical History H/O mitral valve replacement (06/2006) History of left heart catheterization (2005) Presence of biventricular implantable cardioverter-defibrillator (ICD) (03/05/18) Social History Smoking Status: Never smoker alcohol intake: never substance use type: does not use what type of physical activity do you participate in: walking and weight training frequency: daily duration: 15-30 minutes/day ROS ROS Narrative Constitutional: Reports fatigue and weakness. Unable to transfer HEENT: Reports systems reviewed and no addt'l complaints, except as documented Respiratory/Chest: Denies recent chest pain, shortness of breath at rest or exertion Gastrointestinal: Denies coffee ground emesis, hematemesis or vomiting Genitourinary: Denies burning urination or new urinary tract symptoms Musculoskeletal: Decreased range of motion. Off balance. Neurologic: Denies seizure-like activity skin: No ulcer. No rash Endocrinology: Reports systems reviewed and no addt'l complaints, except as documented Hematologic/Lymphatic: Reports systems reviewed and no addt'l complaints, except as documented Rest 12 ROS are negative except as mentioned in HPI Vital Signs Vital Signs Vital Signs: 05/23/21 00:47 05/23/21 00:50 05/23/21 01:46 Temperature 98.6 F 98.6 F Temperature Source Temporal Temporal Pulse Rate 91 91 81 Respiratory Rate 16 22 H 21 H Respiratory Pattern Normal Blood Pressure 97/62 97/62 91/53 L Blood Pressure Mean 73 73 65 Pulse Ox 94 94 96 Oxygen Delivery Method Room Air Room Air Nasal Cannula Oxygen Flow Rate (L/min) 2 05/23/21 02:25 05/23/21 03:00 05/23/21 03:06 Temperature Temperature Source Pulse Rate 80 80 80 Respiratory Rate 18 16 18 Respiratory Pattern Blood Pressure 90/55 L 98/61 98/61 Blood Pressure Mean 66 73 73 Pulse Ox 95 96 Oxygen Delivery Method Nasal Cannula Nasal Cannula Room Air Oxygen Flow Rate (L/min) 2 2 Weight Weight: 198 lb 13.711 oz Body Mass Index (BMI) 25.5 Physical Exam Narrative General: Alert, Oriented x3, Cooperative HEENT: Atraumatic, PERRLA, EOMI, Normocephalic Oral: No Gingival or Mucosal Lesions/ Ulcerations Neck: Supple, No JVD, Negative Carotid Bruits Lungs: Air entry diminished in bilateral lung bases. No crepitation/rhonchi Cardiovascular: Ventricular paced rhythm. Metallic valve sound. Status post MVR. Left subclavicular AICD. Systolic murmur over LLSB. Abdomen: Bowel Sounds Present, Soft, Non Tender, Non-Distended : No renal angle tenderness. No suprapubic tenderness. Extremities: No edema, Capillary Refill Less than 3 Seconds Skin: No rashes, No breakdown Musculoskeletal: 4/5 muscle strength at major joints in lower extremities. Slurring and delayed, motor speech output. DTR 3/4 bilateral knees and ankle reflexes. No Tenderness to Palpation of Joints or Extremities Neurological: Cranial nerves II-XII grossly intact, DTR 2+/4 and Symmetrical, Neuro grossly intact Psych/Mental Status: Flat affect. Results Lab / Micro Data Result Diagrams: 05/23/21 01:32 05/23/21 01:32 Labs: Laboratory Results - last 24 hr 05/23/21 01:32: WBC 6.1, RBC 4.40, Hgb 12.4, Hct 38.5, MCV 87.5, MCH 28.2, MCHC 32.2, RDW Std Deviation 52.0 H, RDW Coeff of Loren 16.6 H, Plt Count 192, MPV 12.3 H, Immature Gran % (Auto) 0.300, Neut % (Auto) 79.2 H, Lymph % (Auto) 9.7 L, [place] % (Auto) 10.3 H, Eos % (Auto) 0.2, Baso % (Auto) 0.3, Absolute Neuts (auto) 4.8, Absolute Lymphs (auto) 0.59 L, Nucleated RBC % 0 05/23/21 01:32: Sodium 139, Potassium 4.1, Chloride 106, Carbon Dioxide 26.0, Anion Gap 7, BUN 18, Creatinine 0.88, Estim Creat Clear Calc 65.67, Est GFR (MDRD) Af Amer 80, Est GFR (MDRD) Non-Af 67, BUN/Creatinine Ratio 20.5 H, Glucose 141 H, Calcium 8.6 05/23/21 01:32: Magnesium 2.0 05/23/21 02:22: Urine Color Yellow, Urine Clarity Clear, Urine pH 5.0, Ur Specific [place] 1.015, Urine Protein 30 H, Urine Glucose (UA) Normal, Urine Ketones Negative, Urine Occult Blood Negative, Urine Nitrite Negative, Urine Bilirubin Negative, Urine Urobilinogen Normal, Ur Leukocyte Esterase 25 H, Urine RBC 0 SEEN, Urine WBC 0 SEEN, Ur Squamous Epith Cells 0 SEEN, Urine Bacteria 0 SEEN, Urine Mucus 0 SEEN 05/23/21 03:05: PT 34.8 H, INR 3.6 Assessment & Plan Assessment/Plan (1) Weakness: PLAN: This 76-year-old female came to ER for unable to transfer, requiring assistance for ADL and failure to thrive. 1. Generalized weakness with debility and decline in functional capacity: Patient is being admitted in MedSurg floor. PT, OT and speech/swallow evaluation. ecommerce merchandising manager consult and possible SNF. 2. Spinocerebellar ataxia: Patient follows Dr. Del Cid. Home medication regimen. CK ordered 3. Cardiac conditions: Nonischemic cardiomyopathy, rheumatic MR status post mechanical mitral valve replacement, NSVT, chronic A. fib status post maze procedure, AICD, incomplete LBBB: Currently patient does not have new symptoms or acute change as per cardiorespiratory system is concerned. Home medications continued. INR 3.6. Hold Coumadin today and adjust dose of Coumadin from tomorrow a.m based on INR. 4. Other comorbidities include dyslipidemia, generalized weakness and limited ADL: Home medications continued VTE prophylaxis: Patient on Coumadin. INR supratherapeutic. Living will/advanced directive/end of life care: Patient does have living will or advanced directive. Mr. Jose Roberto Hobbs is next to kin. After discussion of benefits/risks procedures involved with full code, DNR CC arrest and DNR CC, the patient wants DNR-CC Arrest with no intubation Patient does want artificial life support including intubation, tube feed, ventilator and/chest compression, central venous catheter, vasopressor and DC shock if needed Total time spent in [id number] encounter in discussion of advanced directive 16 minutes. Charges/Coding Visit Charges Inpatient E&M: 44331 Init Hosp L3 OBSV E&M: 58591 Initial observation care L3 Procedures Hospitalists Procedures: 30715 Advncd Care Plan 30 Min
[2021-05-23] MEDS: 0.9% Saline Lock 10 ML Syringe IV ×3 (04:54→22:16)
[2021-05-23] MEDS: Lactated Ringers 1,000 ML 75 ML IV (04:57)
[2021-05-23 05:06] LABS: CPK Total, Creatine Kinase 213 U/L (26-192); Thyroid Stim Hormone (TSH) 3.94 uIU/mL (0.358-3.74)
[2021-05-23] MEDS: Na Biphos/Potassium Phosphate PACKET 1 PACKET PO ×3 (08:25→21:55)
[2021-05-23] MEDS: Carvedilol 3.125 MG TABLET PO (08:30)
[2021-05-23] MEDS: Folic Acid 1 MG Tablet PO (08:30)
[2021-05-23] MEDS: Amiodarone 200 MG Tablet PO (08:30)
[2021-05-23] MEDS: Furosemide 100 MG/10 ML Vial 60 MG IV (09:00)
--- NOTE | 2021-05-23 09:05 | RAD_ITS ---
STUDY: X-RAY CHEST REASON FOR EXAM: Female, 76 years old. Sob TECHNIQUE: Single AP portable view of the chest. COMPARISON: Comparison is made with prior study dated 11/29/2019. FINDINGS: There is evidence of airspace disease in the right upper lobe and left perihilar region. This is suggestive of pulmonary edema. Follow-up is recommended. Mild blunting of both costophrenic angles. Sternal cerclage wires are present from a prior sternotomy. The patient is status post mitral valve replacement. Moderate cardiomegaly. A left-sided dual-chamber pacemaker seen. Normal mediastinum and yoon. Normal visualized pulmonary arteries. There is atherosclerotic tortuosity of the aortic arch and descending thoracic aorta. Normal visualized thoracic spine. Normal visualized ribs, clavicles, and shoulders. There is no demonstrated abnormality of the visualized soft tissue structures of the upper abdomen. RAD/Chest 1 View (Portable) IMPRESSION: Findings suggestive of pulmonary edema. Follow-up is recommended. Electronically Signed: Roc Gunn MD at 10:04 EDT , Service support ,
[2021-05-23] MEDS: Furosemide 40 MG Tablet PO (10:31)
[2021-05-23] MEDS: ALPRAZolam 0.25 MG Tablet PO (10:31)
[2021-05-23] MEDS: QUEtiapine 25 MG Tablet PO ×2 (10:31→21:55)
[2021-05-23] MEDS: Magnesium Chloride 64 MG Delay Rel.Tablet 128 MG PO (10:31)
--- NOTE | 2021-05-23 10:35 | PCM.HOSP.N ---
Hospitalist Note Mrs. Castro is a 76-year-old white female who was admitted early this morning secondary to progressive weakness, declining physical functional activity and the inability to transfer over the past 4 to 6 months. On admission the reported the patient slid down from her bed yesterday. She has severe gait disequilibrium and ataxia and she indicates she has not ambulated without assistance in a long time. She reports being diagnosed with spinocerebellar ataxia and 2012 and has had progressive worsening of symptoms since that point time. She is agreeable to placement at this point. PT, OT, and speech therapy will be evaluating her. She is a marked nonischemic cardiomyopathy with an EF of 15%. She developed some acute respiratory distress overnight and is now on 2 to 3 L nasal cannula. Chest x-ray is consistent with pulmonary edema. She is on baseline Lasix 40 mg p.o. daily. 60 mg IV push x1 dose was given today. Patient has significant crackles on exam as well. Will wean oxygen as possible. Repeat INR in a.m. INR was supratherapeutic at 3.6 on admission. If clinically stable should be ready for discharge tomorrow. We will also consult palliative care-this was discussed with the patient. Diagnoses: Progressive generalized weakness with debility and functional decline Acute hypoxic respiratory failure secondary to decompensated HFrEF Supratherapeutic INR Spinocerebellar ataxia Nonischemic cardiomyopathy with ICD Hyperlipidemia History mitral valve replacement Atrial fibrillation
--- NOTE | 2021-05-23 11:05 | CASEMGMT ---
RN YOLY Assessment: Face to Face with pt for initial transition planning/care coordination assessment. RN CM introduced self and role at [facility], pt voices understanding and consents to assessment. Pt is A/O x4 and answers all questions appropriately at this time. Pt was able to answer most questions but did not know certain answers. Pt sitting up in chair in no distress with O2 on. Pt appears very tired, pale and kept putting her head down. Care providers, pharmacy, and demographics verified/updated. Admitting Dx: Fall, recent decline/FTT PCP:Jr Baron Specialists:Randy, cardio; Nehemias, neuro Preferred Pharmacy: [facility] Insurance: [facility], Physician [place]- pt believes this to be correct Prescription Benefit: pt states she is unsure LW/HPOA: Pt states she has a LW/DPOA. She states her DPOA is her but she would like to get it changed to . Pt is aware that it is not on file at [facility]. LNOK: Jose Roberto Castro, ; Raimundo Castro, son Living Arrangements: Pt lives in a single story house with a ramp to enter. She states she needs assistance with ADL's and her assists with that. Transportation: Pt states she does not drive. She states her transports her to medical appts. DME/HHC/SNF: PT states she has a wheelchair and walker at home. She denies any previous HHC or SNF stays. When pt asked what her dc plan is post hospitalization, pt states there is no plan. Asked pt what she would like to happen. Pt states she would be fine with going to a alf but her expects her to come home. Made pt aware this RN CM would follow with therapy to see what was recommended and asked if home therapy was recommended if she would want home therapy. Pt states she cannot do this as her doesn't like men around me. Pt states no further concerns/needs. CM to follow. Advised pt to ask CM if any further question/concerns/needs arise, voices understanding. Notified ROB Suarez of pt wish to change DPOA and the comment pt made about her and men being around her. Pt Goal: Home vs SNF Plan: TBD, Home vs SNF Dr. Samuel ordered a Palliative Care Consult, tc to [facility] and spoke with Barbara. Referral faxed at this time.
--- NOTE | 2021-05-23 11:48 | CASEMGMT ---
SOCIAL WORK Referral Source: RN YOLY Reason for Consult: Discharge Planning-SNF Met with patient in room. Introduced role and reason for referral. Patient from home with . Patient states would like to go to [facility] at discharge. Patient gave permission for this worker to call and speak with son regarding discharge planning. Call to patient's son, Raimundo. Per Raimundo, patient would benefit from [facility] and manager terminal care at facility. Raimundo reports family issues with patient's and reports issues with hoarding. Patient has been isolated from family. Raimundo reports back in October patient did reach out to son and requested [facility] placement. Raimundo recommending referral to [facility] [place]. Patient in agreement with referral to [facility]. Call to [facility] spoke with Marquita. Marquita reports bed availability. Referral faxed at this time. Plan: [facility] once medically cleared Gina Avendaño, ASSOCIATE PROFESSOR OF ART HISTORY, DOZER OPERATOR
--- NOTE | 2021-05-23 12:40 | NURSING ---
this nurse discussed updating /family as just on phone. pt refused at this time.
--- NOTE | 2021-05-23 14:06 | NURSING ---
speech therapy at bedside.
--- NOTE | 2021-05-23 14:14 | NURSING ---
called to room by [facility] drowsy. aware had coughing with h2o. aware coughing. spo2 89% on 2lnc. o2 increased to 3lnc. 94% spo2
--- NOTE | 2021-05-23 15:25 | NURSING ---
attempted to give update, no answer.
--- NOTE | 2021-05-23 15:45 | CASEMGMT ---
SOCIAL WORK Bed confirmed at [facility]. Gina Avendaño, FACILITY MAINTENANCE WORKER, DRIVER EDUCATION ROAD INSTRUCTOR
--- NOTE | 2021-05-23 16:50 | NURSING ---
talked with CPS about getting o2 adaptor for home CPAP machine as requiring O2 to maintain spo2.
[2021-05-23 17:30] LABS: Allen Test Positive; Base Excess 1 mmol/L (-2 to +2); Bicarbonate 23.6 mmol/L (22-26); Blood Gas Specimen Type ART; FI02 32; O2 Delivery Device Cannula; PO2 61 mmHG (75-100); SITE R Radial; SO2 94 % (95-99); Total Carbon Dioxide 24 mmol/L; pCO2 27.7 mmHg (35-45); pH 7.54 (7.35-7.45)
--- NOTE | 2021-05-23 17:42 | NURSING ---
marcum placed with assist of Storm SILVA. pt tolerated well. immedicate return of 1300ml clear yellow. breathing even/unlabored. remains drowsy but easily awkens and appropriate. bedexit maintained. call light within reach.
--- NOTE | 2021-05-23 19:05 | NURSING ---
Ojse Roberto called in and given update.
--- NOTE | 2021-05-23 19:37 | NURSING ---
talked with Jose Roberto again for ~20min. discussed cpap/o2/activity/ drowsiness/ meds. pt's states he reviewed med list with nurse on admission but pt is on entresto. med added and physician sent cortex.
--- NOTE | 2021-05-23 19:46 | NURSING ---
UPDATED DR. KINSEY ON PT/ TODAYS EVENT AND HOME MED ADDED TO MED LIST WELL CONVERSATION WITH PT'S . AwARE HE WILL STOP BY AND SEE PT.
--- NOTE | 2021-05-23 20:00 | CPS ---
set pt up on home CPAP unit with 5 lpm O2 bleed in.
--- NOTE | 2021-05-23 20:21 | PCM.HOSP.N ---
Hospitalist Note Seen and examined. The nurse called me that patient was short of breath and required Lasix in the morning as she went into heart failure. Patient is drowsy and lethargic and although not dyspneic or labored breathing. On exam Lungs: Bilateral basilar crackles present. Air entry diminished bilaterally. Heart: LLSB and cardiac apex systolic murmur present. AICD : Patient has Mcdonald catheter 400 clear urine in the urinal bag. Total 1700 mL urine output. Negative fluid balance: 200 mL Patient was started on IV Unasyn The patient was evaluated by speech therapist and recommended soft and bite-size texture, thin liquid with compensatory strategies on supervision. I called patient's son, Dr. Miranda Raimundo and gave clinical update. Patient had 60 mg IV Lasix in the morning. We agreed on consulting human relations manager Dr. Saunders therefore I called him. We discussed her medical condition and old echo 04/2014. ECHO showed Dilated LV WITH EF 15%, global hypokinesis, severely enlarged LA, RVSP 22 mmHg with mild TR. Cardio suggested if her hemodynamics can hold, continue Lasix 40 mg IV twice daily with IV Diuril 500 mg half an hour before Lasix for adequate diuresis. Patient is on Entresto. BiPAP, for respiratory support. Rapid Covid PCR ordered. 2D echo for tomorrow a.m. labs ordered for tomorrow a.m. Patient is transferred to PCU for further management.
[2021-05-23 21:35] LABS: Magnesium 1.9 mg/dL (1.6-2.6)
[2021-05-23] MEDS: Atorvastatin Calcium 10 MG Tablet PO (21:55)
[2021-05-23] MEDS: SACUBITRIL/VALSARTAN 49-51 MG TABLET 1 EACH PO (21:55)
--- NOTE | 2021-05-23 22:39 | CPS ---
Pt on own autopap machine with 4L o2 bled in. pt is drowsy but responds appropriately when asked. new cpap mask fits well. pt tolerating home cpap very well.
[2021-05-24] VITALS (12 sets, daily range): BP systolic 89–107; BP diastolic 54–89; PULSE 80–99; RESP 18–22; TEMP 35.9–36.8; O2SAT 92–97
--- NOTE | 2021-05-24 05:55 | ECHOD_ITS ---
Reason For Study: HEART FAILURE Procedure This was a 2D Doppler, Color Flow transthoracic echocardiogram. The exam was of adequate technical quality. Exam performed portable in patient room. Left Ventricle Severely dilated left ventricle. Apical false tendon noted. Severe global left ventricular systolic dysfunction. The estimated ejection fraction is 10 %. There is evidence of diastolic dysfunction. Anterio-Basal: Hypokinetic. Lateral-Basal: Hypokinetic. Posterior-Basal: Severely hypokinetic. Infero-Basal: Severely Hypokinetic. Basal inferoseptal: Severely Hypokinetic. Basal anteroseptal: Severely Hypokinetic. Mid-Anterior : Severely Hypokinetic. Mid-Lateral : Severely Hypokinetic. Mid- Posterior: Severely Hypokinetic. Mid-Inferior: Severely Hypokinetic. Mid-inferoseptal : Severly Hypokinetic. Mid-anteroseptal : Severely Hypokinetic. [place] : Severely Hypokinetic. Right Ventricle Normal RV size. ICD or pacer leads identified within the right ventricle. Mild global right ventricular systolic dysfunction. Atria The left atrium is severely enlarged. The right atrium is moderately enlarged. ICD or pacer leads identified within the right atrium. No doppler evidence for ASD. Mitral Valve Stable appearing mechanical mitral valve apparatus. Trivial transvalvular insufficiency of the mitral valve. Tricuspid Valve Normal tricuspid valve. Moderate (2+) tricuspid valve insufficiency. Right ventricular systolic pressure estimated to be 29 mmHg. Aortic Valve Trisinus/trileaflet aortic valve. Normal aortic valve. Pulmonic Valve The pulmonic valve is not well visualized. Trivial pulmonic valve insufficiency. Great Vessels Normal sized aortic root. Pericardium/Pleural No pericardial effusion. MMode/2D Measurements & Calculations LVIDd: 7.6 cm IVSd: 0.88 cm Ao root diam: 3.4 cm LVIDs: 7.4 cm LVPWd: 0.71 cm RVDd: 5.1 cm FS: 2.8 % LAV(MOD-bp): 260.4 ml LVAd ap4: 58.3 cm2 SV(MOD-sp4): 42.9 ml LAV(MOD-bp) Indexed: 122.2 ml/m2 LVLd ap4: 10.2 cm LAV(MOD-sp2): 243.9 ml EDV(MOD-sp4): 275.4 ml LAV(MOD-sp4): 213.3 ml EDV(sp4-el): 282.4 ml LVAs ap4: 52.8 cm2 LVLs ap4: 10.0 cm ESV(MOD-sp4): 232.5 ml ESV(sp4-el): 236.8 ml EF(MOD-sp4): 15.6 % EF(sp4-el): 16.2 % SV(sp4-el): 45.7 ml LA A4 area: 49.6 cm2 LA dimension(2D): 6.7 cm RA A4 area: 33.1 cm2 Time Measurements MV dec time: 0.09 sec Doppler Measurements & Calculations MV E max rafita: 124.3 cm/sec Lat Peak E' Rafita: 6.1 cm/sec Med Peak E' Rafita: 3.3 cm/sec E/E' lat: 20.3 E/E' med: 37.8 MV V2 max: 134.8 cm/sec Ao V2 max: 78.0 cm/sec LV V1 max: 69.7 cm/sec MV max P.3 mmHg Ao max P.4 mmHg LV V1 max P.9 mmHg MV V2 mean: 90.6 cm/sec MV mean P.5 mmHg MV V2 VTI: 27.6 cm PA V2 max: 45.7 cm/sec PI end-d rafita: 153.3 cm/sec TR max rafita: 255.4 cm/sec TR max P.2 mmHg ECHO/Echo Complete Interpretation Summary Severely dilated left ventricle. Severe global left ventricular systolic dysfunction. The estimated ejection fraction is 10 %. Apical false tendon noted. Mild global right ventricular systolic dysfunction. The left atrium is severely enlarged. The right atrium is moderately enlarged. Stable appearing mechanical mitral valve apparatus. Trivial transvalvular insufficiency of the mitral valve. Moderate (2+) tricuspid valve insufficiency. Trivial pulmonic valve insufficiency. Right ventricular systolic pressure estimated to be 29 mmHg. There is evidence of diastolic dysfunction. ICD or pacer leads identified within the right atrium ICD or pacer leads identified within the right ventricle. Comment: 2D echocardiographic images demonstrate a small mobile echodensity in the left ventricular cavity/submitral valve area appearing compatible with a ruptured or severed cho rdae tendonae and in comparison to a previous transthoracic echocardiogram from 04-27-2014 appears to be without significant change. Ordering Physician: Tin Loomis Referring Physician: YAS HOLT Performed By: Kalyani Huynh, KAT, RVT
[2021-05-24] MEDS: 0.9% Saline Lock 10 ML Syringe IV ×3 (05:56→14:43)
--- NOTE | 2021-05-24 06:00 | RAD_ITS ---
STUDY: X-RAY CHEST REASON FOR EXAM: Female, 76 years old. Sob TECHNIQUE: Single AP portable view of the chest. COMPARISON: Comparison is made with prior study dated 05/23/2021. FINDINGS: EKG electrodes are seen. Since prior examination, there has been marked improvement in the bilateral airspace disease suggestive of improving CHF. There is no demonstrated pleural abnormality. Sternal cerclage wires are present from a prior sternotomy. Status post mitral valve replacement. A left-sided dual-chamber pacemaker is seen. Normal mediastinum and yoon. Normal visualized pulmonary arteries. Normal visualized aortic arch and descending thoracic aorta. Normal visualized thoracic spine. Normal visualized ribs, clavicles, and shoulders. There is no demonstrated abnormality of the visualized soft tissue structures of the upper abdomen. RAD/Chest 1 View (Portable) IMPRESSION: Marked improvement in the CHF. Minimal residual changes persist. Electronically Signed: Roc Gunn MD at 8:14 EDT , Service support ,
[2021-05-24 07:23] LABS: Absolute Lymphocyte Count 0.65 X10^3/uL (0.83-4.51); Absolute Neutrophil Count 3.7 X10^3/uL (2.0-7.7); Basophil# 0.02 X10^3/uL; Basophil% 0.4 % (0-1); Eosinophil# 0.09 X10^3/uL; Eosinophils% 1.8 % (0-5); Hematocrit 36.4 % (37-47); Hemoglobin 11.5 g/dL (12.0-15.0); Lymphocyte # 0.65 X10^3/ul (0.83-4.51); Lymphocyte % 12.8 % (19-41); Mean Corp Hgb Conc 31.6 g/dL (32-36); Mean Corpuscular Hgb 27.6 pg (27.0-32.0); Mean Corpuscular Volume 87.3 fL (81-99); Mean Platelet Vol. 12.1 fl (6.2-12.0); Monocyte# 0.58 X10^3/uL; Monocyte% 11.4 % (0-10); NRBC Flagged by Analyzer 0 % (0-5); Neutrophil # 3.74 X10^3/uL (2.7-7.7); Neutrophil % 73.4 % (47-70); Platelet Count 174 K/mm3 (150-450); RBC Distribution Width CV 16.8 % (11.6-14.6); RBC Distribution Width SD 52.1 fl (35.1-43.9); Red Blood Count 4.17 M/mm3 (4.2-5.4); White Blood Count 5.1 K/mm3 (4.4-11.0)
[2021-05-24 08:12] LABS: Anion Gap 8 (5-15); BUN 15 mg/dL (7-18); BUN/Creat Ratio 21.2 RATIO (10-20); Calcium,Total 7.8 mg/dL (8.5-10.1); Chloride 110 mmol/L (98-107); Creatinine, Serum 0.71 mg/dL (0.55-1.02); EST Glomerular Filtration Rate 85 mL/min (>60); Est Glom Filt Rate - Afr Amer 103 mL/min (>60); Estimated Creatinine Clearance 57.79 ml/min; Glucose 79 mg/dL (74-106); Potassium 2.7 mmol/L (3.5-5.1); Sodium Level 144 mmol/L (136-145)
[2021-05-24 08:17] LABS: International Normalized Ratio 3.6
--- NOTE | 2021-05-24 09:30 | NURSING ---
Getting ECHO done at this time via bedside in room.
--- NOTE | 2021-05-24 09:34 | CON.PCM.CA_ITS ---
Assessment & Plan Assessment/Plan (1) CHF (congestive heart failure): PLAN: The patient is to have acute on chronic systolic mediated CHF. She has been treated thus far with IV diuretics. Based upon her evaluation stay she states her breathing has improved. She is continues to have diminished breath sounds in the bases. Her chest x-rays were reviewed. The most recent chest x-ray does appear to be improved compared to her prior chest x-ray. At the present time she will continue medical therapy with her IV diuretics. An attempt will be made to optimize her medical therapy with the addition of other diuretics such as spironolactone/Aldactone. She is also having reevaluation with a transthoracic echocardiogram to reassess her left ventricular wall motion and systolic function to help guide evaluation and care. (2) Nonischemic cardiomyopathy: PLAN: She has a history of a non-CAD related cardiomyopathy as noted above. At the present time she does appear to have acute on chronic systolic mediated CHF. She will need to continue medical management with adjustment based upon her clinical status, vital signs, etc. Her left ventricular wall motion systolic function will be reassessed with a transthoracic echocardiogram. (3) H/O mitral valve replacement: PLAN: She has a history of a mechanical mitral valve replacement based upon a history of mitral valve prolapse and mitral valve regurgitation. Her last echocardiogram available for review is as noted. She will have a follow-up echocardiogram to reassess her mitral valve anatomy and physiology. (4) Longstanding persistent atrial fibrillation: PLAN: She has a history of atrial fibrillation. During her previous de la fuente rgery she underwent a Maze procedure and left atrial appendage ligation. She has continued medical management. This has included anticoagulant therapy. (5) Chronic atrial flutter: PLAN: Based upon her recent biventricular ICD interrogation she does have underlying atrial flutter. Again she has continued medical therapy including anticoagulant therapy. (6) Presence of biventricular implantable cardioverter-defibrillator (ICD): PLAN: Her ICD appears to be functioning. Her battery status is stable. She will continue to be followed. (7) Hyperlipidemia: QUALIFIERS: Hyperlipidemia type: pure hypercholesterolemia Quali fied Code(s): E78.00 - Pure hypercholesterolemia, unspecified; E78.0 - Pure hypercholesterolemia PLAN: She will continue risk factor evaluation care as deemed appropriate. (8) Weakness: PLAN: She has been described as being progressively weak and having diminished functional status. She will continue her cardiac evaluation and care as noted above. She will need to continue evaluation and care for noncardiovascular comorbidities by internal medicine. Addt'l Comments The patient's case has been discussed and reviewed with the patient and previously with Dr. Loomis. This note was generated using a voice recognition system and there may be incorrect words, spelling or punctuation that were not noted when reviewing the office note prior to saving. HPI Consult Data Date of Consult: 05/24/21 HPI Narrative HPI Narrative: ELIZABETH JOE, is a 76 year old white female who presents for cardiovascular consultation based upon concerns of acute on chronic systolic mediated CHF superimposed upon a history of a non-CAD related cardiomyopathy, status post mitral valve replacement (remote-mechanical), atrial fibrillation (status post left atrial appendage ligation-2005), status post biventricular ICD/PHYSICIST NUCLEAR therapy, and hyperlipidemia. She was brought to the [facility] emergency department by her family because of progressive weakness/decline over the last several weeks to months. During her evaluation there were concerns that she had developed acute on chronic systolic mediated CHF. She was placed in the hospital for further evaluation and care. She was evaluated by the hospital staff who initiated additional medical therapy with IV diuretics. Cardiology was consulted to assist in the care of the patient. At the present time she denies any ongoing chest discomfort. She admits her bird n concerns have been her progressive shortness of breath and dyspnea. She states that after the IV diuresis she does feel somewhat better with respect to her breathing. She does not recall any episodes of ongoing worsening peripheral pitting edema, near-syncope/syncope, or ICD discharge. She has had previous noninvasive and invasive cardiovascular testing in the past. Based upon review of her medical records it does not appear that she has had any recent noninvasive studies such as a transthoracic echocardiogram. She did have her biventricular ICD examined on 03-23-2021. According to the report at that time there were no VT or VF episodes reported. She had ongoing persistent atrial flutter. She was LV pacing approximately 99% of the time and RV pacing approximately 81% of the time. Her battery longevity was approximately 6.5 years. [facility] Medical History (Updated 05/24/21 @ 09:[address] 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 Seizures Sleep apnea Spinocerebellar ataxia Home Medications alpha lipoic acid 200 mg PO TID 04/24/15 [History Last Taken Unknown] alprazolam 0.25 mg PO BID 04/24/15 [History Last Taken 03/05/18] levocarnitine tartrate 500 mg PO TID 04/24/15 [History Last Taken Unknown] niacin 1,000 mg PO BID 04/24/15 [History Last Taken Unknown] calcium carbonate-vitamin D3 2 tab PO BID 04/05/16 [History Last Taken 03/05/18] coenzyme Q10 100 mg PO DAILY 04/05/16 [History Last Taken Unknown] folic acid 1 mg PO DAILY@0800 04/05/16 [History Last Taken Unknown] warfarin 2 mg PO SUTUWETHFRSA 04/05/16 [History Last Taken Unknown] warfarin 2 mg PO MO 05/12/16 [History Last Taken 06/02/16 3 mg] flaxseed oil 5 ml MISCELLANEOUS ONCE ml 10/29/18 [History Last Taken Unknown] dextran 70-hypromellose 0.1 %-0.3 % eye drops 1 drp OPHTHALMIC DAILY ml 05/06/19 [History Last Taken Unknown] amiodarone 200 mg tablet 200 mg PO DAILY #90 tab 04/17/20 [Rx Last Taken Unknown] rosuvastatin 20 mg tablet 20 mg PO QHS #90 tab 05/17/20 [Rx Last Taken Unknown] furosemide 40 mg tablet 40 mg PO DAILY #90 tab 02/16/21 [Rx Last Taken Unknown] linaclotide 72 mcg capsule 72 mcg PO DAILY cap 02/20/21 [History Last Taken Unknown] magnesium 250 mg tablet 500 mg PO DAILY tab 02/20/21 [History Last Taken Unknown] carvedilol 3.125 mg tablet See Rx Instructions PO BID #270 tab 05/18/21 [Rx Last Taken Unknown] quetiapine [Seroquel] 25 mg PO BID 05/23/21 [History Last Taken Unknown] sacubitril-valsartan [Entresto] 1 tab PO BID 05/23/21 [History Last Taken Unk nown] Allergy/AdvReac Type Severity Reaction Status Date / Time Iodinated Contrast Media Allergy Intermediate Rash Verified 02/20/21 10:25 [Iodinated Contrast Media - IV Dye] Tetracyclines AdvReac Unknown Rash Verified 02/20/21 10:25 wool AdvReac Rash Verified 02/20/21 10:25 chocolate Allergy Mild coughing/ra Uncoded 02/20/21 10:25 sh ragweed Allergy Mild red,itchy Uncoded 02/20/21 10:25 eyes beta cynthia AdvReac Intermediate Unknown Uncoded 02/20/21 10:25 Family History Father CAD (coronary artery disease) Mother CAD (coronary artery disease) CABG Surgical History H/O mitral valve replacement (06/2006) History of left heart catheterization (2005) Presence of biventricular implantable cardioverter-defibrillator (ICD) (03/05/18) Social History Smoking Status: Never smoker alcohol intake: never substance use type: does not use what type of physical activity do you participate in: walking and weight training frequency: daily duration: 15-30 minutes/day ROS Constitutional Constitutional: Reports as per HPI Eyes Eyes: Reports as per HPI ENT HEENT: Reports as per HPI Cardiovascular Cardiovascular: Reports dyspnea Respiratory/Chest Respiratory/Chest: Reports dyspnea Gastrointestinal Gastrointestinal: Reports as per HPI Genitourinary Genitourinary: Reports as per HPI Musculoskeletal Musculoskeletal: Reports as per HPI Integumentary Integumentary: Reports as per HPI Neurologic Neurologic: Reports as per HPI Physical Exam Const alert General Appearance: other Still somewhat short of breath. Orientation / Consciousness: awake HEENT normocephalic and head/scalp atraumatic Eyes PERRL, EOMs intact bilaterally and conjunctivae normal Neck full ROM, supple and no JVD Chest Chest: midline sternotomy incision Resp Auscultation: diminished lung sounds right lower Cardio regular rate, regular rhythm and S1 normal heart sound Heart Sounds: prosthetic sounds crisp prosthetic S2 GI normal to inspection, nondistended, normoactive bowel sounds Extremity no pedal edema Skin no rashes or lesions noted Neuro moves all extremities Objective Data Vital Signs: Vital Signs Temp Pulse Resp BP Pulse Ox 97.8 F 80 18 100/63 97 05/24/21 04:00 05/24/21 07:38 05/24/21 04:00 05/24/21 04:00 05/24/21 04:00 Oxygen Flow Rate (L/min) 4 Oxygen Delivery Method CPAP Weight: 191 lb 12.835 oz Body Mass Index (BMI) 24.1 Intake & Output: Intake and Output for Last 24 Hours 05/22/21 05/23/21 05/24/21 23:59 23:59 23:59 Intake Total 2352.00 / 2352.00 112 / 112 Output Total 1700 / 1800 350 / 350 Balance 652.00 / 552.00 -238 / -238 Lab / Micro Data Result Diagrams: 05/24/21 06:05 05/24/21 06:05 Labs: Laboratory Results - last 24 hr 05/23/21 01:32: Magnesium 1.9 05/24/21 06:05: PT 35.0 H, INR 3.6 05/24/21 06:05: Sodium 144, Potassium 2.7 L*, Chloride 110 H, Carbon Dioxide 26.0, Anion Gap 8, BUN 15, Creatinine 0.71, Estim Creat Clear Calc 57.79, Est GFR (MDRD) Af Amer 103, Est GFR (MDRD) Non-Af 85, BUN/Creatinine Ratio 21.2 H, Glucose 79, Calcium 7.8 L 05/24/21 06:05: WBC 5.1, RBC 4.17 L, Hgb 11.5 L, Hct 36.4 L, MCV 87.3, MCH 27.6, MCHC 31.6 L, RDW Std Deviation 52.1 H, RDW Coeff of Loren 16.8 H, Plt Count 174, MPV 12.1 H, Immature Gran % (Auto) 0.200, Neut % (Auto) 73.4 H, Lymph % (Auto) 12.8 L, [place] % (Auto) 11.4 H, Eos % (Auto) 1.8, Baso % (Auto) 0.4, Absolute Neuts (auto) 3.7, Absolute Lymphs (auto) 0.65 L, Nucleated RBC % 0 Micro: Microbiology 05/23/21 22:10 Mucosa - Nose SARS-CoV-2 Antigen (Rapid) - Final ABG Data ABG results: ABG 05/23/21 17:26 Specimen Type ART Sample Site R Radial pH 7.54 H Bicarbonate Actual 23.6 Total CO2 24 Base Excess 1 O2 Saturation 94 L O2 % 32 ABG pCO2 27.7 L ABG pO2 61 L Dominguez Test Positive O2 Delivery Device Cannula Clinical Comments 3 lpm n/c Cardiology Labs/Tests 05/23/21 01:32: Magnesium 1.9 05/23/21 17:26: pH 7.54 H, Bicarbonate Actual 23.6, Base Excess 1, O2 Saturation 94 L, ABG pCO2 27.7 L, ABG pO2 61 L, Dominguez Test Positive 05/24/21 06:05: PT 35.0 H, INR 3.6 05/24/21 06:05: Sodium 144, Potassium 2.7 L*, Chloride 110 H, Carbon Dioxide 26.0, Anion Gap 8, BUN 15, Creatinine 0.71, Est GFR (MDRD) Af Amer 103, Est GFR (MDRD) Non-Af 85, BUN/Creatinine Ratio 21.2 H, Glucose 79, Calcium 7.8 L 05/24/21 06:05: WBC 5.1, RBC 4.17 L, Hgb 11.5 L, Hct 36.4 L, MCV 87.3, MCH 27.6, MCHC 31.6 L, Plt Count 174, MPV 12.1 H, Immature Gran % (Auto) 0.200, Neut % (Auto) 73.4 H, Lymph % (Auto) 12.8 L, [place] % (Auto) 11.4 H, Eos % (Auto) 1.8, Baso % (Auto) 0.4, Absolute Neuts (auto) 3.7, Nucleated RBC % 0 Rhythm: Electronic ventricular paced rhythm EKG: Electronic ventricular paced rhythm ECHO:04-27-2014 Interpretation Summary Moderately dilated left ventricle. The estimated ejection fraction is 15 %. Paced septal motion. There is severe global hypokinesis of the left ventricle. Mild (1+) tricuspid valve insufficiency. Pulmonary artery systolic pressure is 22 mmHg. The left atrium is severely enlarged. Compared to prior study, there is no significant change. Stress Test: Cardiac Cath: June 2006: [place] Per the report: 1. Bileaflet mitral prolapse, moderate to severe mitral regurgitation with progressive ventricular dilatation by recent echocardiography with probable rec ent onset atrial fibrillation 2. Normal right dominant coronary artery 3. Moderate ventricular dilatation by left ventriculography with ejection fraction of 35 to 40% 4. Bileaflet mitral prolapse, assessment of mitral regurgitation problematic for technical reasons 5. Atrial flutter during this examination Per the body of the report: There was no report of any angiographically significant appearing coronary disease in the left coronary artery circulation. The left main, LAD, LCx, and intermediate ramus were reported as normal . CT Surgery: It appears that she had open heart surgery performed at [facility] in [place] in June 2006. According to the report she had a mitral valve replacement with a [employer] mechanical mitral valve prosthesis as well as a Maze procedure with a left atrial appendage resection. Radiography Diagnostic Testing: Radiology Impression Chest X-Ray 05/23/21 09:05 IMPRESSION: Findings suggestive of pulmonary edema. Follow-up is recommended. Electronically Signed: Roc Gunn MD at 10:04 EDT , Service support , Chest X-Ray 05/24/21 06:00 IMPRESSION: Marked improvement in the CHF. Minimal residual changes persist. Electronically Signed: Roc Gunn MD at 8:14 EDT , Service support ,
--- NOTE | 2021-05-24 09:40 | CON.PCM.PA_ITS ---
Assessment & Plan Assessment/Plan (1) Weakness: (2) Spinocerebellar ataxia: (3) CHF (congestive heart failure): QUALIFIERS: Heart failure chronicity: acute on chronic Heart failure type: systolic Qualified Code(s): I50.23 - Acute on chronic systolic (congestive) heart failure (4) Dyspnea on exertion: (5) Hyperlipidemia: QUALIFIERS: Hyperlipidemia type: pure hypercholesterolemia Qualified Code(s): E78.00 - Pure hypercholesterolemia, unspecified; E78.0 - Pure hypercholesterolemia (6) CVA (cerebral vascular accident): QUALIFIERS: CVA mechanism: unspecified Qualified Code(s): I63.9 - Cerebral infarction, unspecified (7) H/O mitral valve replacement: (8) Longstanding persistent atrial fibrillation: (9) Rheumatic mitral insufficiency: (10) Rheumatic mitral valve prolapse: (11) Nonischemic cardiomyopathy: (12) Presence of biventricular implantable cardioverter-defibrillator (ICD): PLAN: At the [facility] we will continue to follow [id number] female with cerebellar ataxia and significant overall functional decline, as well as acute on chronic CHF, seen today for palliative care consultation for symptom management, overall decline, supportive care for comorbid conditions, and improvement of quality of life. 1. Debility and weakness: She has progressive cerebellar ataxia, mostly bedbound at this point. She will be going to the [facility] for skilled therapy and possible long-term care. Also has significant CHF, repeat echo is pending. 2. Shortness of breath/TREVIZO: Acute on chronic systolic CHF, she is being diuresed and improving. Again, echo pending. No palliative medication such as Ativan or oxycodone indicated at this time for shortness of breath since she is improving with diuresis, but we will reevaluate in the outpatient setting. 3. History of CVA/rheumatic mitral valve prolapse s/p MVR/HLD/nonischemic cardiomyopathy/AICD/atrial fibrillation: Complicates overall care, management, recovery, and prognosis. Her comorbid conditions are having a significant impact on her functional status patient continues to decline. It appears she would benefit from long-term care, especially in light of issues at home with her . We will see how she does with therapy and continue to follow her at the [facility]. Thank you for the opportunity to participate in this patient's care, please do not hesitate to contact [facility] with any further questions or concerns. Palliative direct line is [phone]. We will follow up after discharge and will discuss palliative services further at that time. Greater than 50% of F2F visit dedicated to education and counseling of palliativ e care services, medications, comorbid conditions and potential assistance with management, and plan of care moving forward. Start time: 929 End time: 1045 HPI Consult Data Date of Consult: 05/24/21 HPI Narrative HPI Narrative: ELIZABETH JOE, is a 76 F who presents to [facility] 05/23/2021 with complaints of progressive weakness and inability to transfer. She has had some chronic weakness but has been able to assist with transfers with her spouse. Patient has a history of spinocerebellar ataxia, diagnosed in 2011 and has been progressively declining since then. She also has significant cardiac history, including AICD, atrial fibrillation, nonischemic cardiomyopathy, and CHF. She has had some ongoing dysphagia as well. Palliative care consulted secondary to overall decline, comorbid conditions, poor quality of life, and for symptom management. Last evening, patient had increase in shortness of breath. She seemed to be in CHF exacerbation. She had gotten some fluids in the ER, and required diuresis. Dr. Saunders, cardiology was consulted and recommended continuing Lasix 40 mg IV twice daily and IV Diuril 500 mg half an hour before the Lasix to improve adequate diuresis, as long as hemodynamics remain stable. She had a repeat chest x-ray this morning which showed improvement in CHF. Patient is also on Entresto. A repeat echocardiogram was ordered for today. Last echocardiogram in May 2017 revealed moderately dilated left ventricle, severe segmental systolic dysfunction, estimated EF of 20%, severely enlarged left atrium, stable appearing mechanical mitral valve apparatus. She did have a pacemaker battery change in 2018. Patient has CPAP machine with 5 L oxygen bleed. Patient son is Dr. Joe, local physician. Patient lives at home with her , Jose Roberto. Due to her significant decline, it has been recommended patient go to skilled therapy at the [facility], with potential long-term care. There is apparently issues with the patient's , he does not like men being around her. There is significant hoarding and isolation of the patient from her family. Patient does not drive, transfer her to medical appointments. She does have a wheelchair and walker at home. They live in a single-story house with a ramp to enter. She requires significant assistance with ADLs. Patient's current HC POA is her spouse, Jose Roberto. However, it has been noted she would like to get a change to Dr. Jr Baron, who is in practice with her son Dr. Raimundo Joe. Patient denies any chest pain. She does not currently feel short of breath but is tachypneic at 24-26. Her speech is very pressured and she speaks in broken sentences. No significant cough or sputum production. No headaches. No chronic pain other than her left hip, which she reports has arthritis. No nausea, vomiting, or diarrhea. She does struggle with constipation and takes Linzess. Here at the hospital she also has Amirah-Colace 2 tabs twice daily PRN constipation. No numbness or tingling. No vision changes. She does feel quite weak and can barely lift her arms at this point. [facility] Medical History Atrial fibrillation Cerebellar ataxia CHF (congestive heart failure) Chronic atrial flutter CPAP (continuous positive airway pressure) dependence CVA (cerebral vascular accident) Essential (primary) hypertension History of cardioversion Hyperlipidemia ICD (implantable cardioverter-defibrillator) in place Incomplete left bundle branch block Longstanding persistent atrial fibrillation Nonischemic cardiomyopathy Nonsustained ventricular tachycardia Osteoporosis Pacemaker Rheumatic mitral insufficiency Rheumatic mitral valve prolapse Seizures Sleep apnea Spinocerebellar ataxia Home Medications alpha lipoic acid 200 mg PO TID 04/24/15 [History Last Taken Unknown] alprazolam 0.25 mg PO BID 04/24/15 [History Last Taken 03/05/18] levocarnitine tartrate 500 mg PO TID 04/24/15 [History Last Taken Unknown] niacin 1,000 mg PO BID 04/24/15 [History Last Taken Unknown] calcium carbonate-vitamin D3 2 tab PO BID 04/05/16 [History Last Taken 03/05/18] coenzyme Q10 100 mg PO DAILY 04/05/16 [History Last Taken Unknown] folic acid 1 mg PO DAILY@0800 04/05/16 [History Last Taken Unknown] warfarin 2 mg PO SUTUWETHFRSA 04/05/16 [History Last Taken Unknown] warfarin 2 mg PO MO 05/12/16 [History Last Taken 06/02/16 3 mg] flaxseed oil 5 ml MISCELLANEOUS ONCE ml 10/29/18 [History Last Taken Unknown] dextran 70-hypromellose 0.1 %-0.3 % eye drops 1 drp OPHTHALMIC DAILY ml 05/06/19 [History Last Taken Unknown] amiodarone 200 mg tablet 200 mg PO DAILY #90 tab 04/17/20 [Rx Last Taken Unknown] rosuvastatin 20 mg tablet 20 mg PO QHS #90 tab 05/17/20 [Rx Last Taken Unknown] furosemide 40 mg tablet 40 mg PO DAILY #90 tab 02/16/21 [Rx Last Taken Unknown] linaclotide 72 mcg capsule 72 mcg PO DAILY cap 02/20/21 [History Last Taken Unknown] magnesium 250 mg tablet 500 mg PO DAILY tab 02/20/21 [History Last Taken Unknown] carvedilol 3.125 mg tablet See Rx Instructions PO BID #270 tab 05/18/21 [Rx Last Taken Unknown] quetiapine [Seroquel] 25 mg PO BID 05/23/21 [History Last Taken Unknown] sacubitril-valsartan [Entresto] 1 tab PO BID 05/23/21 [History Last Taken Unknown] Allergy/AdvReac Type Severity Reaction Status Date / Time Iodinated Contrast Media Allergy Intermediate Rash Verified 02/20/21 10:25 [Iodinated Contrast Media - IV Dye] Tetracyclines AdvReac Unknown Rash Verified 02/20/21 10:25 wool AdvReac Rash Verified 02/20/21 10:25 chocolate Allergy Mild coughing/ra Uncoded 02/20/21 10:25 sh ragweed Allergy Mild red,itchy Uncoded 02/20/21 10:25 eyes beta cynthia AdvReac Intermediate Unknown Uncoded 02/20/21 10:25 Family History Father CAD (coronary artery disease) Mother CAD (coronary artery disease) CABG Surgical History H/O mitral valve replacement (06/2006) History of left heart catheterization (2005) Presence of biventricular implantable cardioverter-defibrillator (ICD) (03/05/18) Social History Smoking Status: Never smoker alcohol intake: never substance use type: does not use what type of physical activity do you participate in: walking and weight training frequency: daily duration: 15-30 minutes/day ROS ROS Narrative Review of systems otherwise negative from a constitutional, HEENT, respiratory, cardiovascular, GI, genitourinary, musculoskeletal, skin, neurologic, psychiatric and hematologic system unless stated above. Physical Exam Const alert and oriented x3 General Appearance: ill appearing HEENT normocephalic and head/scalp atraumatic Neck supple General: trachea midline Lymph Lymphatic: no lymphadenopathy noted Resp Effort and Inspection: symmetric chest movement and tachypneic; Negative for able to speak in complete sentences Auscultation: diminished lung sounds; Negative for rales, rhonchi or wheezes Cardio regular rate, S1 normal heart sound and S2 normal heart sound Rhythm: abnormal rhythm irregularly irregular GI soft to palpation, non-tender and non-distended Auscultation: hypoactive bowel sounds Narrative: Mcdonald catheter draining clear yellow urine Extremity General Extremity: edema bilateral lower extremity (Trace pitting); Negative for cyanosis Skin Skin Narrative: Scattered abrasions on knees lower extremities, mild and healing. Bridge of nose also swollen and red bilaterally Neuro moves all extremities and no focal motor deficits Neuro Narrative: Generalized moderately severe weakness. Speaking in broken sentences. Appears very fatigued but is conversing appropriately Gait (Neuro): other Gait ataxia at baseline, however currently nonambulatory. Too weak to stand Psych mental status grossly normal and cooperative Speech: soft and pressured
[2021-05-24] MEDS: Glycerin/Hypromellose/PEG400 15 ml Bottle 1 DRP OPHTHALMIC (10:20)
[2021-05-24] MEDS: Magnesium Chloride 64 MG Delay Rel.Tablet 128 MG PO (10:21)
[2021-05-24] MEDS: Amiodarone 200 MG Tablet PO (10:22)
[2021-05-24] MEDS: Folic Acid 1 MG Tablet PO (10:22)
[2021-05-24] MEDS: SACUBITRIL/VALSARTAN 49-51 MG TABLET 1 EACH PO ×2 (10:22→22:20)
[2021-05-24] MEDS: Na Biphos/Potassium Phosphate PACKET 1 PACKET PO ×2 (13:28→22:20)
[2021-05-24] MEDS: Potassium Chloride Oral Tablet 20 MEQ 60 MEQ PO (13:34)
[2021-05-24] MEDS: Spironolactone 25 MG Tablet PO (13:42)
--- NOTE | 2021-05-24 14:08 | PN.HOSP_ITS ---
Subjective Subjective Patient indicates her breathing is much improved today. She has no other current complaints. She does report that she performing talk to her son and not her as she feels her is overwhelmed and in denial at this point. She also indicates that she would like to make Dr. Baron her son's business par tner her POA for healthcare. Objective Data Objective Data Vital Signs: Vital Signs Temp Pulse Resp BP Pulse Ox 96.6 F L 99 20 H 101/89 H 97 05/24/21 13:25 05/24/21 13:25 05/24/21 13:25 05/24/21 13:25 05/24/21 13:25 Oxygen Flow Rate (L/min) 3 Oxygen Delivery Method Nasal Cannula Weight: 87 kg Body Mass Index (BMI) 24.1 Intake & Output: Intake and Output for Last 24 Hours 05/22/21 05/23/21 05/24/21 23:59 23:59 23:59 Intake Total 2352.00 / 2352.00 112 / 112 Output Total 1700 / 1800 350 / 350 Balance 652.00 / 552.00 -238 / -238 Lab / Micro Data Result Diagrams: 05/24/21 06:05 05/24/21 06:05 Labs: Laboratory Results - last 24 hr 05/23/21 01:32: Magnesium 1.9 05/24/21 06:05: PT 35.0 H, INR 3.6 05/24/21 06:05: Sodium 144, Potassium 2.7 L*, Chloride 110 H, Carbon Dioxide 26.0, Anion Gap 8, BUN 15, Creatinine 0.71, Estim Creat Clear Calc 57.79, Est GFR (MDRD) Af Amer 103, Est GFR (MDRD) Non-Af 85, BUN/Creatinine Ratio 21.2 H, Glucose 79, Calcium 7.8 L 05/24/21 06:05: WBC 5.1, RBC 4.17 L, Hgb 11.5 L, Hct 36.4 L, MCV 87.3, MCH 27.6, MCHC 31.6 L, RDW Std Deviation 52.1 H, RDW Coeff of Loren 16.8 H, Plt Count 174, MPV 12.1 H, Immature Gran % (Auto) 0.200, Neut % (Auto) 73.4 H, Lymph % (Auto) 12.8 L, Robeson % (Auto) 11.4 H, Eos % (Auto) 1.8, Baso % (Auto) 0.4, Absolute Neuts (auto) 3.7, Absolute Lymphs (auto) 0.65 L, Nucleated RBC % 0 Micro: Microbiology 05/23/21 22:10 Mucosa - Nose SARS-CoV-2 Antigen (Rapid) - Final ABG Data ABG results: ABG 05/23/21 17:26 Specimen Type ART Sample Site R Radial pH 7.54 H Bicarbonate Actual 23.6 Total CO2 24 Base Excess 1 O2 Saturation 94 L O2 % 32 ABG pCO2 27.7 L ABG pO2 61 L Dominguez Test Positive O2 Delivery Device Cannula Clinical Comments 3 lpm n/c Radiography Diagnostic Testing: Radiology Impression Echocardiogram 05/24/21 05:55 Interpretation Summary Severely dilated left ventricle. Severe global left ventricular systolic dysfunction. The estimated ejection fraction is 10 %. Apical false tendon noted. Mild global right ventricular systolic dysfunction. The left atrium is severely enlarged. The right atrium is moderately enlarged. Stable appearing mechanical mitral valve apparatus. Trivial transvalvular insufficiency of the mitral valve. Moderate (2+) tricuspid valve insufficiency. Trivial pulmonic valve insufficiency. Right ventricular systolic pressure estimated to be 29 mmHg. There is evidence of diastolic dysfunction. ICD or pacer leads identified within the right atrium ICD or pacer leads identified within the right ventricle. Comment: 2D echocardiographic images demonstrate a small mobile echodensity in the left ventricular cavity/submitral valve area appearing compatible with a ruptured or severed chordae tendonae and in comparison to a previous transthoracic echocardiogram from 04-27-2014 appears to be without significant change. Ordering Physician: Tin Loomis Referring Physician: YAS BARON Performed By: Kalyani Hyunh, ALENCS, RVT Chest X-Ray 05/24/21 06:00 IMPRESSION: Marked improvement in the CHF. Minimal residual changes persist. Electronically Signed: Roc Gunn MD at 8:14 EDT , Service support , Physical Exam Const alert, oriented x3 and no apparent distress Constitutional Narrative: Elderly white female lying in bed, appears well, nontoxic, no acute distress Exam Limitations: no limitations HEENT head/scalp atraumatic Head and Scalp: normocephalic Resp normal respiratory effort, no retractions, no use of accessory muscles and clear to auscultation bilaterally Resp Narrative: Few bibasilar crackles Auscultation: crackles; Negative for rales, rhonchi or wheezes Cardio regular rate, regular rhythm, S1 normal heart sound, S2 normal heart sound, no rub and no JVD; Negative for no murmurs or no clicks GI normal to inspection, nondistended, normoactive bowel sounds, soft to palpation, non-tender and non-distended; Negative for hepatosplenomegaly Extremity normal to inspection and no clubbing, cyanosis or edema Peripheral Pulses: Yes pulses 2+ throughout Skin no rashes or lesions noted, no wounds, skin turgor normal, no jaundice, no petechiae and no mottling Neuro oriented x3 Sensorium / Orientation: awake and alert Psych Psych Narrative: Very pleasant Assessment & Plan Assessment/Plan (1) Nonischemic cardiomyopathy: (2) CHF (congestive heart failure): QUALIFIERS: Heart failure type: systolic Heart failure chronicity: acute on chronic Qualified Code(s): I50.23 - Acute on chronic systolic (congestive) heart failure (3) Weakness: PLAN: Assessment: Progressive generalized weakness with debility and functional decline Acute hypoxic respiratory failure secondary to decompensated HFrEF Supratherapeutic INR Spinocerebellar ataxia Nonischemic cardiomyopathy with ICD Hyperlipidemia History mechanical mitral valve replacement Atrial fibrillation Plan: -Palliative care has seen and evaluated the patient and plans to follow her at the [facility] -Patient diuresed well yesterday with Lasix and chest x-ray is improved signi ficantly -Wean oxygen as able -Per discussion with her son she wears her CPAP during the day quite a bit at home -Continue goal-directed therapy for her heart per cardiology recommendations -Repeat echocardiogram shows an EF of 10% -Continue IV diuretics at this time and convert to p.o. when able -Goal INR is 2.5-3.5 -INR 3.6 today -Coumadin to be dosed today and repeat INR in a.m. -Held yesterday -Plan for discharge within the next 24 to 48 hours depending on when patient is most medically stable -Son updated in entirety with regards to plan and current therapies -Patient wanted me to update her son and not her with regards to this stating he is very overwhelmed and in denial Charges/Coding Visit Charges Inpatient E&M: 05173 Subs Hosp L2
[2021-05-24] MEDS: Furosemide 40 MG/4 ML Vial IV (14:43)
[2021-05-24] MEDS: Jantoven 2 MG Tablet PO (18:35)
[2021-05-24 19:11] LABS: Bedside Glucose 94 mg/dL (70-110)
[2021-05-24] MEDS: Atorvastatin Calcium 10 MG Tablet PO (22:20)
[2021-05-24] MEDS: QUEtiapine 25 MG Tablet PO (22:20)
[2021-05-24] MEDS: ALPRAZolam 0.25 MG Tablet PO (22:20)
[2021-05-25] VITALS (8 sets, daily range): BP systolic 82–106; BP diastolic 41–68; PULSE 80–95; RESP 18; TEMP 36.4–37.1; O2SAT 91–100
[2021-05-25 07:00] LABS: Absolute Lymphocyte Count 0.64 X10^3/uL (0.83-4.51); Absolute Neutrophil Count 3.7 X10^3/uL (2.0-7.7); Basophil# 0.02 X10^3/uL; Basophil% 0.4 % (0-1); Eosinophil# 0.11 X10^3/uL; Eosinophils% 2.1 % (0-5); Hematocrit 36.3 % (37-47); Hemoglobin 11.4 g/dL (12.0-15.0); Lymphocyte # 0.64 X10^3/ul (0.83-4.51); Lymphocyte % 12.5 % (19-41); Mean Corp Hgb Conc 31.4 g/dL (32-36); Mean Corpuscular Hgb 27.5 pg (27.0-32.0); Mean Corpuscular Volume 87.5 fL (81-99); Monocyte# 0.67 X10^3/uL; Monocyte% 13.1 % (0-10); NRBC Flagged by Analyzer 0 % (0-5); Neutrophil # 3.66 X10^3/uL (2.7-7.7); Neutrophil % 71.5 % (47-70); Platelet Count 186 K/mm3 (150-450); RBC Distribution Width CV 17.1 % (11.6-14.6); RBC Distribution Width SD 53.3 fl (35.1-43.9); Red Blood Count 4.15 M/mm3 (4.2-5.4); White Blood Count 5.1 K/mm3 (4.4-11.0)
[2021-05-25 07:31] LABS: Anion Gap 7 (5-15); BUN 15 mg/dL (7-18); BUN/Creat Ratio 18.9 RATIO (10-20); Chloride 108 mmol/L (98-107); Creatinine, Serum 0.79 mg/dL (0.55-1.02); EST Glomerular Filtration Rate 75 mL/min (>60); Est Glom Filt Rate - Afr Amer 90 mL/min (>60); Estimated Creatinine Clearance 57.79 ml/min; Glucose 88 mg/dL (74-106); Potassium 2.8 mmol/L (3.5-5.1); Sodium Level 143 mmol/L (136-145)
[2021-05-25 07:37] LABS: International Normalized Ratio 3.7
--- NOTE | 2021-05-25 09:56 | SP.MBSS_ITS ---
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 Medical History: The patient is a 76 F with history of spinocerebellar ataxia and other multiple comorbidities listed below was brought into ER 05/23/21 by her for progressive weakness, declining physical functional activity and unable to transfer over past 4 to 6 months. Patient has gait disequilibrium, easily gets off balance and requires assistance for movement even going to bathroom. 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 She also has artificial mitral valve replacement, persistent A. fib on Coumadin and defibrillator. 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 Pt participated in MBS study in 02/09/2021 with the following recommendations: Soft and Bite Sized Textures, Thin Liquids with the following Compensatory Strategies: Small Bites, Small Sips - very small sips one at a time, No Straws, Slow Rate, Sitting upright, Remain sitting upright for 30 minutes after PO intake, Supervision: Distant Supervision. She was evaluated by speech therapy via BSE on 05/23/21 and made NPO due to lethargy with suspected aspiration of thin liquids. On 05/24 she was upgraded to puree textures / nectar thick liquids with 1:1 direct supervision and sips by tsp. Pt was referred for MBS study to further assess for swallow dysfunction and aspiration risk. Current Diet Ordered: Puree Textures / Honey Thick Liquids Respiratory Status: Oxygenating on 2L/M nasal cannula - Penetration-Aspiration Scale Penetration-Aspiration Scale: OBJECTIVE ASSESSMENT OF SWALLOW FUNCTION (QUANTITATIVE ? PER TRIAL): PENETRATION / ASPIRATION SCALE (NICHOLAS): 1 = does not enter airway 2 = enters airway/above vocal folds/ejected 3 = enters airway/above vocal folds/not ejected 4 = enters airway/contacts vocal folds/ejected 5 = enters airway/contacts vocal folds/not ejected 6 = enters airway/below vocal folds/ejected 7 = enters airway/below vocal folds/not ejected despite effort 8 = enters airway/below vocal folds/no effort VIDEOFLOROSCOPIC SCALE SCORE (NICHOLAS): Grade I = aspiration of material that has penetrated into the laryngeal vestibule, intact cough reflex Grade II = aspiration < 10 % of the bolus, intact cough reflex Grade III = aspiration of < 10 % of the bolus, reduced cough reflex or aspiration of > 10 % of the bolus, intact cough reflex Grade IV = aspiration of > 10 % of the bolus, reduced cough reflex - Penetration-Aspiration Scale Score Thin Liquid via teaspoon Result: 7= enters airways/below vocal folds/not ejected despite effort - Weak, ineffective delayed cough. Thin Liquid via teaspoon Trial 2 Result: 3= enters airways/above vocal folds/not ejected - 1/2 tsp sip. Continued coughing following completion of sip. Contrast from previous sip observed remaining on patient's vocal folds. Thin Liquid via small single sip from cup Result: 3= enters airways/above vocal folds/not ejected - Difficult to determine level of penetration as pt moved out of the view; however, increased contrast observed on vocal folds after completion of trial. Thin Liquid via small single sip from cup Trial 2 Result: 3= enters airways/above vocal folds/not ejected Herricks Thick Liquid via teaspoon Result: 3= enters airways/above vocal folds/not ejected Herricks Liquid via teaspoon Effortful swallow Result: 2= enter airway/above vocal folds/ejected - 1/2 tsp sip. Herricks Thick Liquid via teaspoon Effortful swallow Trial 2 Result: 5= enters airways/contacts vocal folds/not ejected - 1/2 tsp sip. Honey Thick Liquid via teaspoon Result: 1= does not enter airway Honey Thick Liquid via small single sip from cup Result: 3= enters airways/above vocal folds/not ejected Pudding Result: 1= does not enter airway Honey Thick Liquid via large single sip from cup Result: 3= enters airways/above vocal folds/not ejected Honey Thick Liquid via teaspoon Trial 2 Result: 1= does not enter airway Cookie Result: 1= does not enter airway Honey Thick Liquid via teaspoon Trial 3 Result: 1= does not enter airway - Oral Phase Labial Seal: Escape beyond mid-chin Tongue Control During Bolus Hold: Posterior escape of greater than half of bolus Bolus Preparation/Mastication: Disorganized chewing/mashing with solid pieces of bolus unchewed - Bolus appeared fully chewed; however, she did not achieve complete recollection of cookie bolus with posterior spillage observed. Bolus Transport/Lingual Motion: Repetitive/disorganized tongue motion Oral Residue: Majority of bolus remaining - Evident with larger sip sizes. - Pharyngeal Phase Initiation of Pharyngeal Swallow: Bolus head in pyriforms Soft Palate Elevation: Trace column of contrast/air between soft palate and pharyngeal wall Laryngeal Elevation: Partial superior movement thyroid cart/partial apprx aryt- epig petiole Anterior Hyoid Excursion: Partial anterior movement Epiglottic Movement: Partial inversion Laryngeal Vestibule Closure at Height of Swallow: Incomplete; narrow column of air/contrast in laryngeal vestibule Pharyngeal Stripping Wave: Present - diminished Pharyngoesophageal Segment Opening: Parital distension and partial duration; parital obstruction of flow Tongue Base Retraction: Narrow column of contrast between tongue base & post. pharyngeal wall Pharyngeal Residue: Collection of residue within or on pharyngeal structures - Esophageal Phase Esophageal Clearance: Esophageal retention - Treatment Strategies Effects of treatment strategies attemped:: Effortful swallow = Little to no impact observed with use of strategy. Decreased bolus size = Effective. - Diagnosis/Impression Diagnosis: Moderate oropharyngeal phase dysphagia (R13.12) Impression: The patient's oral phase is primarily marked by poor bolus control and decreased mastication. The patient presented with intermittent oral holding of various textures during study. She presented with premature posterior spillage of greater than half the bolus resulting in suboptimal bolus placement upon swallow onset, especially noted with large bolus sizes or with thin and nectar thickened trials. The patient had prolonged mastication and disorganized, repetitive lingual movement upon bolus transport. The patient frequently presented with mild-moderate oral residues. The patient's pharyngeal phase of the swallow is primarily marked by delayed initiation of the swallow and decreased airway closure. The patient presented with moderately delayed swallow onset with bolus head in the pyriforms. She has reduced hyoid excursion and laryngeal elevation, as well as inconsistent epiglottic inversion. She had mild to trace pharyngeal residue after the swallow, which decreased with smaller bolus trials. The patient presented with aspiration of a tsp sip of thin liquids with a weak, delayed ineffective cough reflex observed. She presented with consistent penetration of thin and nectar liquids, as well as honey thickened liquids via cup. In a majority of trials, the contrast did not appear to fully eject from the laryngeal vestibule. When consuming honey thick and pudding thick consistencies via tsp, the patient presented with improved swallow onset and airway closure during the swallow. Esophageal retention observed in the upper and distal esophagus; however, no retrograde flow observed. - Recommendations Diet: Mechanical Soft Textures - Minced and Moist Textures, Honey-thick Liquids - Moderately Thick Liquids Compensatory Strategies: Small Bites, Small Sips, Liquid by Teaspoon Only, Slow Rate, Feed only when alert, Alternate bites/solids and sips/liquids, Sitting upright, Remain sitting upright for 30 minutes after PO intake Supervision: 1:1 Close Supervision - Assist the patient with feeding as needed to utilize recommended strategies. Recommend Repeat Modified Barium Swallow: Yes - Would recommend repeat MBS study in 4-6 weeks after implementation of oropharyngeal exercise program. Need for Skilled Speech Therapy Services: Yes Comment: Will recommend the patient for continued dysphagia therapy to address moderate deficits in oropharyngeal function of swallow. Would consider the patient for oropharyngeal strengthening to improve lingual strength and coordination, sw allow onset, hyolaryngeal elevation and excursion, and tongue base retraction. The patient would benefit from thorough education regarding diet recommendations and recommended compensatory strategies. Education Completed: 1. Described result of evaluation., 7. Pt requires further education on strategies & risks. - Status Active ST Patient: Active - Contact Information [facility] Speech Therapy:: Becka Valdovinos M.A. [facility]-STAFF COUNSELOR Speech-Language Pathologist [facility] [address] [place] [address] [email or web address] [phone] 05/25/21 11:31
--- NOTE | 2021-05-25 10:15 | PN.CARD_ITS ---
Subjective Subjective The patient appears to be resting comfortably in the supine position with no acute cardiopulmonary complaints at this time. Objective Data Vital Signs: Vital Signs Temp Pulse Resp BP Pulse Ox 98 F 83 18 91/53 L 96 05/25/21 05:08 05/25/21 07:00 05/25/21 05:08 05/25/21 05:08 05/25/21 05:08 Oxygen Flow Rate (L/min) 4 Oxygen Delivery Method CPAP Weight: 183 lb 9.6 oz Body Mass Index (BMI) 24.1 Intake & Output: Intake and Output for Last 24 Hours 05/23/21 05/24/21 05/25/21 23:59 23:59 23:59 Intake Total 2352.00 / 2352.00 883 / 883 473.75 / 473.75 Output Total 1700 / 1800 4375 / 4375 250 / 250 Balance 652.00 / 552.00 -3492 / -3492 223.75 / 223.75 Lab / Micro Data Result Diagrams: 05/25/21 05:50 05/25/21 05:50 Labs: Laboratory Results - last 24 hr 05/24/21 18:13: POC Glucose 94 05/25/21 05:50: PT 36.0 H, INR 3.7 05/25/21 05:50: WBC 5.1, RBC 4.15 L, Hgb 11.4 L, Hct 36.3 L, MCV 87.5, MCH 27.5, MCHC 31.4 L, RDW Std Deviation 53.3 H, RDW Coeff of Loren 17.1 H, Plt Count 186, MPV 11.0, Immature Gran % (Auto) 0.400, Neut % (Auto) 71.5 H, Lymph % (Auto) 12.5 L, Curry % (Auto) 13.1 H, Eos % (Auto) 2.1, Baso % (Auto) 0.4, Absolute Neuts (auto) 3.7, Absolute Lymphs (auto) 0.64 L, Nucleated RBC % 0 05/25/21 05:50: Sodium 143, Potassium 2.8 L, Chloride 108 H, Carbon Dioxide 28.0, Anion Gap 7, BUN 15, Creatinine 0.79, Estim Creat Clear Calc 57.79, Est GFR (MDRD) Af Amer 90, Est GFR (MDRD) Non-Af 75, BUN/Creatinine Ratio 18.9, Glucose 88, Calcium 8.0 L Cardiology Labs/Tests 05/25/21 05:50: PT 36.0 H, INR 3.7 05/25/21 05:50: WBC 5.1, RBC 4.15 L, Hgb 11.4 L, Hct 36.3 L, MCV 87.5, MCH 27.5, MCHC 31.4 L, Plt Count 186, MPV 11.0, Immature Gran % (Auto) 0.400, Neut % (Auto) 71.5 H, Lymph % (Auto) 12.5 L, Curry % (Auto) 13.1 H, Eos % (Auto) 2.1, Baso % (Auto) 0.4, Absolute Neuts (auto) 3.7, Nucleated RBC % 0 05/25/21 05:50: Sodium 143, Potassium 2.8 L, Chloride 108 H, Carbon Dioxide 28.0, Anion Gap 7, BUN 15, Creatinine 0.79, Est GFR (MDRD) Af Amer 90, Est GFR (MDRD) Non-Af 75, BUN/Creatinine Ratio 18.9, Glucose 88, Calcium 8.0 L Rhythm: Electronic ventricular paced rhythm Radiography Diagnostic Testing: Radiology Impression Echocardiogram 05/24/21 05:55 Interpretation Summary Severely dilated left ventricle. Severe global left ventricular systolic dysfunction. The estimated ejection fraction is 10 %. Apical false tendon noted. Mild global right ventricular systolic dysfunction. The left atrium is severely enlarged. The right atrium is moderately enlarged. Stable appearing mechanical mitral valve apparatus. Trivial transvalvular insufficiency of the mitral valve. Moderate (2+) tricuspid valve insufficiency. Trivial pulmonic valve insufficiency. Right ventricular systolic pressure estimated to be 29 mmHg. There is evidence of diastolic dysfunction. ICD or pacer leads identified within the right atrium ICD or pacer leads identified within the right ventricle. Comment: 2D echocardiographic images demonstrate a small mobile echodensity in the left ventricular cavity/submitral valve area appearing compatible with a ruptured or severed chordae tendonae and in comparison to a previous transthoracic echocardiogram from 04-27-2014 appears to be without significant change. Ordering Physician: Tin Loomis Referring Physician: YAS HOLT Performed By: Kalyani Huynh, RDCS, RVT Physical Exam Const alert General Appearance: other Still somewhat short of breath. Orientation / Consciousness: awake HEENT normocephalic and head/scalp atraumatic Eyes PERRL, EOMs intact bilaterally and conjunctivae normal Neck full ROM, supple and no JVD Chest Chest: midline sternotomy incision Resp Auscultation: diminished lung sounds right (Improved compared to previous examination) lower Cardio regular rate, regular rhythm and S1 normal heart sound Heart Sounds: prosthetic sounds crisp prosthetic S2 GI normal to inspection, nondistended, normoactive bowel sounds Extremity no pedal edema Skin no rashes or lesions noted Neuro moves all extremities Assessment & Plan Assessment/Plan (1) CHF (congestive heart failure): QUALIFIERS: Heart failure type: systolic Heart failure chronicity: acute on chronic Qualified Code(s): I50.23 - Acute on chronic systolic (congestive) heart failure PLAN: The patient is to have acute on chronic systolic mediated CHF. She has been treated thus far with IV diuretics. She will be changed to oral diuretic therapy. Her oral diuretic regimen also now includes Aldactone spironolactone-as long as tolerated and renal function and electrolytes allow. Her chest x-rays were reviewed. The most recent chest x-ray does appear to be improved compared to her prior chest x-ray. Her repeat echocardiogram is as noted. Her estimated LVEF is approximately 10%. (2) Nonischemic cardiomyopathy: PLAN: She has a history of a non-CAD related cardiomyopathy as noted above. At the present time she does appear to have acute on chronic systolic mediated CHF. She will need to continue medical management with adjustment based upon her clinical status, vital signs, etc. (3) H/O mitral valve replacement: PLAN: She has a history of a mechanical mitral valve replacement based upon a history of mitral valve prolapse and mitral valve regurgitation. Her last echocardiogram available for review is as noted. Based upon her recent echocardiogram her mitral valve apparatus appears to be stable. (4) Longstanding persistent atrial fibrillation: PLAN: She has a history of atrial fibrillation. During her previous surgery she underwent a Maze procedure and left atrial appendage ligation. She has continued medical management. This has included anticoagulant therapy. (5) Chronic atrial flutter: PLAN: Based upon her recent biventricular ICD interrogation she does have underlying atrial flutter. Again she has continued medical therapy including anticoagulant therapy. (6) Presence of biventricular implantable cardioverter-defibrillator (ICD): PLAN: Her ICD appears to be functioning. Her battery status is stable. She will continue to be followed. (7) Hyperlipidemia: QUALIFIERS: Hyperlipidemia type: pure hypercholesterolemia Qualified Code(s): E78.00 - Pure hypercholesterolemia, unspecified; E78.0 - Pure hypercholesterolemia PLAN: She will continue risk factor evaluation care as deemed appropriate. (8) Weakness: PLAN: She has been described as being progressively weak and having diminished functional status. She will continue her cardiac evaluation and care as noted above. She will need to continue evaluation and care for noncardiovascular comorbidities by internal medicine. Addt'l Comments At the present time she does appear to be symptomatically improved compared to her admission to the hospital. She will continue medical management with adjustment as deemed appropriate. Internal medicine is also reviewing her case for subsequent discharge to an extended care facility. The patient's case was discussed and reviewed with Dr. Samuel. This note was generated using a voice recognition system and there may be incorrect words, spelling or punctuation that were not noted when reviewing the office note prior to saving.
[2021-05-25] MEDS: Glycerin/Hypromellose/PEG400 15 ml Bottle 1 DRP OPHTHALMIC (10:50)
[2021-05-25] MEDS: Magnesium Chloride 64 MG Delay Rel.Tablet 128 MG PO (10:50)
[2021-05-25] MEDS: Potassium Chloride Oral Tablet 20 MEQ 60 MEQ PO (10:50)
[2021-05-25] MEDS: ALPRAZolam 0.25 MG Tablet PO (10:51)
[2021-05-25] MEDS: Folic Acid 1 MG Tablet PO (10:51)
[2021-05-25] MEDS: 0.9% Saline Lock 10 ML Syringe IV (10:51)
[2021-05-25] MEDS: Spironolactone 25 MG Tablet PO (10:54)
[2021-05-25] MEDS: Amiodarone 200 MG Tablet PO (11:05)
[2021-05-25] MEDS: SACUBITRIL/VALSARTAN 49-51 MG TABLET 1 EACH PO (11:05)
[2021-05-25] MEDS: Furosemide 40 MG Tablet PO (11:06)
--- NOTE | 2021-05-25 12:19 | DS.PCM_ITS ---
Providers Date of Admission: 05/24/21 Primary Care Physician: Dr. Jr Baron MD Consultations 05/23/21 10:33 Consult: Hospice / Palliative Care Routine Consulting Provider: [facility] Reason for Consult: PALLIATIVE CARE FOR SPINOCEREBELLAR ATAXIA EMERGENT Consult: No Notified: Yes Date Notified: 05/23/21 Time Notified: 11:58 Method of Notification: Verbal Comments:: notified by Talisha charlee mgmt 05/23/21 20:13 Consult: Cardiology Routine Consulting Provider: Raimundo Saunders Reason for Consult: Acute on chronic systolic HF EMERGENT Consult: No Notified: Yes Date Notified: 05/23/21 Time Notified: 20:14 Method of Notification: Verbal Reason For Visit: FALL, RECENT DECLINE/FTT Diagnosis Discharge Diagnosis (1) CHF (congestive heart failure): Status: Acute Code(s): I50.9 - Heart failure, unspecified Qualifiers: Heart failure type: systolic Heart failure chronicity: acute on chronic Qualified Code(s): I50.23 - Acute on chronic systolic (congestive) heart failure (2) Nonischemic cardiomyopathy: Status: Chronic Code(s): I42.8 - Other cardiomyopathies (3) H/O mitral valve replacement: Status: Chronic Code(s): Z95.2 - Presence of prosthetic heart valve (4) Longstanding persistent atrial fibrillation: Status: Chronic Code(s): I48.11 - Longstanding persistent atrial fibrillation (5) Chronic atrial flutter: Status: Chronic Code(s): I48.92 - Unspecified atrial flutter (6) Presence of biventricular implantable cardioverter-defibrillator (ICD): Status: Chronic Code(s): Z95.810 - Presence of automatic (implantable) cardiac defibrillator (7) Hyperlipidemia: Status: Chronic Code(s): E78.5 - Hyperlipidemia, unspecified Qualifiers: Hyperlipidemia type: pure hypercholesterolemia Qualified Code(s): E78.00 - Pure hypercholesterolemia, unspecified; E78.0 - Pure hypercholesterolemia (8) Weakness: Status: Acute Code(s): R53.1 - Weakness Medications at Discharge Home Medications alpha lipoic acid 200 mg PO TID 04/24/15 alprazolam 0.25 mg PO BID 04/24/15 levocarnitine tartrate 500 mg PO TID 04/24/15 niacin 1,000 mg PO BID 04/24/15 calcium carbonate-vitamin D3 2 tab PO BID 04/05/16 coenzyme Q10 100 mg PO DAILY 04/05/16 folic acid 1 mg PO DAILY@0800 04/05/16 warfarin 2 mg PO SUTUWETHFRSA 04/05/16 warfarin 2 mg PO MO 05/12/16 flaxseed oil 5 ml MISCELLANEOUS ONCE ml 10/29/18 dextran 70-hypromellose 0.1 %-0.3 % eye drops 1 drp OPHTHALMIC DAILY ml 05/06/19 amiodarone 200 mg tablet 200 mg PO DAILY #90 tab 04/17/20 rosuvastatin 20 mg tablet 20 mg PO QHS #90 tab 05/17/20 linaclotide 72 mcg capsule 72 mcg PO DAILY cap 02/20/21 magnesium 250 mg tablet 500 mg PO DAILY tab 02/20/21 carvedilol 3.125 mg tablet See Rx Instructions PO BID #270 tab 05/18/21 Entresto 1 tab PO BID 05/23/21 quetiapine [Seroquel] 25 mg PO BID 05/23/21 amoxicillin-pot clavulanate [Augmentin] 1 tab PO BID 4 Days #8 tab 05/25/21 furosemide 40 mg PO BIDLX #0 tab 05/25/21 potassium chloride [Klor-Con M20] 40 meq PO DAILYCM #0 tab 05/25/21 spironolactone 25 mg PO DAILY #0 tab 05/25/21 Hospital Course Operations None Procedures 2-D Echocardiogram Summary of Care Provided Minutes Spent on Discharge: 45 Hospital Course: Mrs. Castro is a 76-year-old white female with a history of spinocerebellar ataxia diagnosed in 2011 and multiple other comorbidities who was brought to the emergency department at [facility] with progressive weakness, declining functional status, and the inability to transfer over the past 4 to 6 months on 05/23/2021. The day prior to presentation she slid down out of bed. She has significant gait disequilibrium and is unable to ambulate independently for a significant amount of time per the patient. With her gradual decrease in functional decline on admission she was agreeable to placement. She was initially hydrated with 75 cc of fluid per hour and unfortunately developed some acute systolic heart failure. She was placed on supplemental oxygen, diuresed, and cardiology was consulted. A repeat echocardiogram was performed and shows an EF of 10%. She has a known nonisch emic cardiomyopathy at baseline. Her medications were titrated by cardiology and her diuresis was converted to Lasix 40 mg p.o. twice daily prior to discharge. With her significant diuresis she developed hypokalemia which was replaced and she was discharged on scheduled potassium as well. Aldactone was added to her drug regimen per cardiology and she remains on Entresto. She will need close follow-up with regards to her potassium and her renal function given her diuresis, potassium supplementation and drugs that are potassium sparing. Palliative care met with the patient given her significant comorbidities and [facility]. She has known sleep apnea and per discussion with her son wears her CPAP a significant out during the day and at night and is compliant with this. She was stable for discharge on 05/25/2021. She will need follow-up with cardiology in 4 to 6 weeks. Her INR was followed and remained slightly supratherapeutic with her INR discharge of 3.7. Her goal INR is 2.5-3.5 given her mechanical mitral valve. Her overall prognosis is poor. Discharge diagnoses: Progressive generalized weakness/debility/functional decline Acute hypoxic respiratory failure secondary to decompensated heart failure with reduced ejection fraction Nonischemic cardiomyopathy History of rheumatic valvular disease Hyperlipidemia History of mechanical mitral valve replacement PAF Spinocerebellar ataxia REBECCA Dysarthria Dysphagia History of stroke Hypokalemia Chronic mild normocytic anemia Physical Exam Const alert and oriented x3 Constitutional Narrative: Elderly white female who seems older than stated age lying in bed currently on CPAP which she wears at night and throughout the day while napping, appears comfortable, nontoxic, able to lie flat without need respiratory issues General Appearance: cooperative, comfortable and well kempt HEENT normocephalic, head/scalp atraumatic and hearing grossly normal bilaterally Mouth: dry mucous membranes Eyes PERRL and EOMs intact bilaterally Neck supple Neck Narrative: Trachea midline, Mallampati 3 Resp normal respiratory effort, no retractions, no use of accessory muscles and clear to auscultation bilaterally Resp Narrative: Diminished at bases but clear Auscultation: Negative for crackles, rales, rhonchi or wheezes Cardio regular rate, regular rhythm, S1 normal heart sound, S2 normal heart sound, no murmurs, no rub, no gallops, no clicks and no JVD GI normal to inspection, nondistended, normoactive bowel sounds, soft to palpation, non-tender and non-distended Extremity normal to inspection and no clubbing, cyanosis or edema Skin no rashes or lesions noted, no wounds, skin turgor normal and no jaundice Skin Narrative: Pale skin Neuro oriented x3 Sensorium / Orientation: awake and alert Speech: speech normal Weight / BMI Weight Weight: 83.28 kg Body Mass Index (BMI) 24.1 ABG / Lab / Microbiology Data Result Diagrams: 05/25/21 05:50 05/25/21 05:50 Laboratory: Laboratory Results - last 24 hr 05/24/21 18:13: POC Glucose 94 05/25/21 05:50: PT 36.0 H, INR 3.7 05/25/21 05:50: WBC 5.1, RBC 4.15 L, Hgb 11.4 L, Hct 36.3 L, MCV 87.5, MCH 27.5, MCHC 31.4 L, RDW Std Deviation 53.3 H, RDW Coeff of Loren 17.1 H, Plt Count 186, MPV 11.0, Immature Gran % (Auto) 0.400, Neut % (Auto) 71.5 H, Lymph % (Auto) 12.5 L, [place] % (Auto) 13.1 H, Eos % (Auto) 2.1, Baso % (Auto) 0.4, Absolute Neuts (auto) 3.7, Absolute Lymphs (auto) 0.64 L, Nucleated RBC % 0 05/25/21 05:50: Sodium 143, Potassium 2.8 L, Chloride 108 H, Carbon Dioxide 28.0, Anion Gap 7, BUN 15, Creatinine 0.79, Estim Creat Clear Calc 57.79, Est GFR (MDRD) Af Amer 90, Est GFR (MDRD) Non-Af 75, BUN/Creatinine Ratio 18.9, Glucose 88, Calcium 8.0 L Microbiology: Microbiology 05/23/21 22:10 Mucosa - Nose SARS-CoV-2 Antigen (Rapid) - Final D/C Instructions Discharge Diet: Low fat / Low cholesterol and 2000 mg Sodium Diet Discharge Activity: Return to Normal Activity Meaningful Use Info Meaningful Use Diagnoses (Choose all that apply): CHF CHF RONNELL/ARB ordered at discharge?: Yes Documented LVEF (%): 10 Discharge Plan Admission Admit Date/Time: 05/24/21 08:10 Primary Reason for Your Visit: Debility Attending Provider: Magaly Samuel Primary Care Provider: Jr Baron Consulting Providers: Raimundo Saunders ; Eliana Luevano ; Dedrick Morales ; Tasha Gutierrez ; Elana Porras ; Batsheva Saenz ; Dipika Haque [employer]TER Discharge Orders/Prescriptions Prescriptions: New furosemide 40 mg Tablet 40 mg PO BIDLX Qty: 0 RF: 0 spironolactone 25 mg Tablet 25 mg PO DAILY Qty: 0 RF: 0 potassium chloride [Klor-Con M20] 20 mEq Tablet,Er Particles/Crystals 40 meq PO DAILYCM Qty: 0 RF: 0 amoxicillin-pot clavulanate [Augmentin] 875-125 mg tablet 1 tab PO BID 4 Days Qty: 8 RF: 0 Continued flaxseed oil oil 5 ml miscellaneous ONCE RF: 0 Natural Balance Tears 0.1-0.3 % drops 1 drp OPHTHALMIC DAILY RF: 0 linaclotide 72 mcg capsule 72 mcg PO DAILY RF: 0 niacin 1,000 MG tablet extended release 24 hr 1,000 mg PO BID RF: 0 alprazolam 0.5 MG tablet extended release 24 hr 0.25 mg PO BID RF: 0 levocarnitine tartrate 500 MG capsule 500 mg PO TID RF: 0 alpha lipoic acid 600 MG capsule 200 mg PO TID RF: 0 magnesium 250 mg tablet 500 mg PO DAILY RF: 0 warfarin 2 MG tablet 2 mg PO KENYETTAUWETH RF: 0 folic acid 1 MG tablet 1 mg PO DAILY@0800 RF: 0 coenzyme Q10 100 MG capsule 100 mg PO DAILY RF: 0 calcium carbonate-vitamin D3 1 TAB tablet 2 tab PO BID RF: 0 warfarin 3 MG tablet 2 mg PO MO RF: 0 quetiapine [Seroquel] 25 mg Tablet 25 mg PO BID RF: 0 Entresto 49-51 mg Tablet 1 tab PO BID RF: 0 amiodarone 200 mg tablet 200 mg PO DAILY Qty: 90 RF: 3 rosuvastatin 20 mg tablet 20 mg PO QHS Qty: 90 RF: 3 carvedilol 3.125 mg tablet See Rx Instructions PO BID Qty: 270 RF: 3 Discontinued furosemide 40 mg tablet 40 mg PO DAILY Qty: 90 RF: 4 Referrals / Follow Up: Jr Baron MD [Primary Care Provider] - In 1 Week Raimundo Saunders MD [STAFF PHYSICIAN] - Within 1 Month Disposition Disposition (needs filled in before D/C Order can be placed): Assisted Facility Charges/Coding Visit Charges Inpatient E&M: 84790 SNF Disch >30 Min
--- NOTE | 2021-05-25 12:38 | TREXTCAR_ITS ---
Diet 05/24/21 11:57 Diet: Regular - General Food consistency:: Mechanical (Minced/Moist) Liquid Consistency:: Honey/Moderately Thick Is pt able to select menu?: Yes Diet Comments: Liquids via tsp only, Direct sup/Assist feeding, Meals only if FULLY ALERT Routine Orders/Code Status Suppository Frequency: Daily PRN O2 Liters per Minute: 2 O2 Frequency: CPAP at HS and PRN Keep PO Greater than or Equal to (%): 92 Routine Lab Work: CBC (Weekly), BMP (A.m. 05/26/2021) and INR (A.m. 05/26/2021) Code Status: DNRCC-A (No intubation) Wound(s) Left Knee: Wound Type: scratches Bilateral Shins: Wound Type: scabs Suggestions for Active Care Change Position every (hours): 2 Times a day to sit in chair: 2 Therapies Weight Bearing: Full weight bearing Physical Therapy: Eval and Treat Occupational Therapy: Eval and Treat Speech Therapy: Eval and Treat Problem/Diagnosis (1) CHF (congestive heart failure): Status: Acute (2) Nonischemic cardiomyopathy: Status: Chronic (3) H/O mitral valve replacement: Status: Chronic (4) Longstanding persistent atrial fibrillation: Status: Chronic Comment: MAZE procedure w/ LAAL 06/2006 (5) Chronic atrial flutter: Status: Chronic (6) Presence of biventricular implantable cardioverter-defibrillator (ICD): Status: Chronic Comment: 06/30/2009 w/ battery change out 03/05/18 (7) Hyperlipidemia: Status: Chronic (8) Weakness: Status: Acute Allergies/Procedures Done in Hospital Allergies Iodinated Contrast Media [Iodinated Contrast Media - IV Dye] Allergy (Intermediate, Verified 02/20/21 10:25) Rash Tetracyclines Adverse Reaction (Unknown, Verified 02/20/21 10:25) Rash wool Adverse Reaction (Verified 02/20/21 10:25) Rash chocolate Allergy (Mild, Uncoded 02/20/21 10:25) coughing/rash ragweed Allergy (Mild, Uncoded 02/20/21 10:25) red,itchy eyes beta cynthia Adverse Reaction (Intermediate, Uncoded 02/20/21 10:25) Unknown Procedures: 2-D Echocardiogram Type of Care/Length of Stay Estimated LOS: More Than 30 Days Type of Care Needed: Skilled Rehab Potential: Fair Prognosis: Fair Additional Orders/Day of Discharge Day of Discharge: 05/25/21 Dietary and Speech Recommendations Dietitian Recommendations/Changes: recommend regular diet, consistency per [employer] when appropriate for PO intake. Will monitor need for oral nutrition supplements when diet resumed. Discharge Plan Admission Admit Date/Time: 05/24/21 08:10 Primary Reason for Your Visit: Debility Attending Provider: Magaly Samuel Primary Care Provider: Jr Baron Consulting Providers: Raimundo Saunders ; Eliana Leuvano ; Dedrick Morales ; Tasha Gutierrez ; Elana Porras ; Batsheva Saenz ; Dipika Haque [employer] Discharge Orders/Prescriptions Prescriptions: New furosemide 40 mg Tablet 40 mg PO BIDLX Qty: 0 RF: 0 spironolactone 25 mg Tablet 25 mg PO DAILY Qty: 0 RF: 0 potassium chloride [Klor-Con M20] 20 mEq Tablet,Er Particles/Crystals 40 meq PO DAILYCM Qty: 0 RF: 0 amoxicillin-pot clavulanate [Augmentin] 875-125 mg tablet 1 tab PO BID 4 Days Qty: 8 RF: 0 Continued flaxseed oil oil 5 ml miscellaneous ONCE RF: 0 Natural Balance Tears 0.1-0.3 % drops 1 drp OPHTHALMIC DAILY RF: 0 linaclotide 72 mcg capsule 72 mcg PO DAILY RF: 0 niacin 1,000 MG tablet extended release 24 hr 1,000 mg PO BID RF: 0 alprazolam 0.5 MG tablet extended release 24 hr 0.25 mg PO BID RF: 0 levocarnitine tartrate 500 MG capsule 500 mg PO TID RF: 0 alpha lipoic acid 600 MG capsule 200 mg PO TID RF: 0 magnesium 250 mg tablet 500 mg PO DAILY RF: 0 warfarin 2 MG tablet 2 mg PO SUTUWETHFRSA RF: 0 folic acid 1 MG tablet 1 mg PO DAILY@0800 RF: 0 coenzyme Q10 100 MG capsule 100 mg PO DAILY RF: 0 calcium carbonate-vitamin D3 1 TAB tablet 2 tab PO BID RF: 0 warfarin 3 MG tablet 2 mg PO MO RF: 0 quetiapine [Seroquel] 25 mg Tablet 25 mg PO BID RF: 0 Entresto 49-51 mg Tablet 1 tab PO BID RF: 0 amiodarone 200 mg tablet 200 mg PO DAILY Qty: 90 RF: 3 rosuvastatin 20 mg tablet 20 mg PO QHS Qty: 90 RF: 3 carvedilol 3.125 mg tablet See Rx Instructions PO BID Qty: 270 RF: 3 Discontinued furosemide 40 mg tablet 40 mg PO DAILY Qty: 90 RF: 4 Referrals / Follow Up: Jr Baron MD [Primary Care Provider] - In 1 Week Raimundo Saunders MD [STAFF PHYSICIAN] - Within 1 Month Disposition Disposition (needs filled in before D/C Order can be placed): Long-Term Facility
--- NOTE | 2021-05-25 12:47 | PHA.DC.MR ---
Pharmacy Service has performed discharge medication reconciliation for this patient. The patient's discharge medication list was reviewed for discrepancies and discrepancies were resolved. Home Medications alpha lipoic acid 200 mg PO TID 04/24/15 alprazolam 0.25 mg PO BID 04/24/15 levocarnitine tartrate 500 mg PO TID 04/24/15 niacin 1,000 mg PO BID 04/24/15 calcium carbonate-vitamin D3 2 tab PO BID 04/05/16 coenzyme Q10 100 mg PO DAILY 04/05/16 folic acid 1 mg PO DAILY@0800 04/05/16 warfarin 2 mg PO SUTUWETHFRSA 04/05/16 warfarin 2 mg PO MO 05/12/16 flaxseed oil 5 ml MISCELLANEOUS ONCE ml 10/29/18 dextran 70-hypromellose 0.1 %-0.3 % eye drops 1 drp OPHTHALMIC DAILY ml 05/06/19 amiodarone 200 mg tablet 200 mg PO DAILY #90 tab 04/17/20 rosuvastatin 20 mg tablet 20 mg PO QHS #90 tab 05/17/20 linaclotide 72 mcg capsule 72 mcg PO DAILY cap 02/20/21 magnesium 250 mg tablet 500 mg PO DAILY tab 02/20/21 carvedilol 3.125 mg tablet See Rx Instructions PO BID #270 tab 05/18/21 Entresto 1 tab PO BID 05/23/21 quetiapine [Seroquel] 25 mg PO BID 05/23/21 amoxicillin-pot clavulanate [Augmentin] 1 tab PO BID 4 Days #8 tab 05/25/21 furosemide 40 mg PO BIDLX #0 tab 05/25/21 potassium chloride [Klor-Con M20] 40 meq PO DAILYCM #0 tab 05/25/21 spironolactone 25 mg PO DAILY #0 tab 05/25/21
--- NOTE | 2021-05-25 13:05 | CASEMGMT ---
SW spoke with patient and she did confirm she wants Dr Baron to be her Healthcare POA. Patient is now ready for discharge. SW called patient's son and let him know patient will be going to [facility] today. ROB also asked for Dr Baron's phone number to put on the POA papers. SW reviewed POA papers and it indicates that one cannot name his/her attending physician to be his/her Healthcare POA. SW let patient know this information. She would like help with this at [facility]. ROB told her SW will pass this along to [facility]. Marnie Parra [employer]
--- NOTE | 2021-05-25 14:48 | NURSING ---
Report called to Della at [facility]. Patient expected to leave around 1530.
--- NOTE | 2021-05-25 15:32 | CASEMGMT ---
ROB faxed d/c orders to [facility] as well as her negative COVID test. ROB arranged for patient to get picked up via cot at 330. ROB went to patient's room and notified her and her was also present. He asked why she is going by cot. ROB asked patient if she would be able to sit up for transport and she said she does not think she can as she has been sitting up for awhile. ROB told her we will leave it with cot. ROB called Tommy and Marquita was out of the office, but inker and opaquer was going to page her to call ROB. RN and inker and opaquer were also notified. Plan: d/c to [facility] at [place] under skilled level of care on a convalescent stay. [facility] transported via cot. Marnie KEITA
== END 2021-05-25 15:52 | disposition skilled nursing facility (03) | DRG 291 ==
LOC: ED 02:57 → MS3 04:13 → PCU 05-24 08:23
PROVIDERS: Admitting Provider Internal Medicine; Emergency Provider Emergency Medicine; PCP Family Medicine; Visit Provider Internal Medicine
DX: I11.0 Hypertensive heart disease with heart failure (principal); J96.01 Acute respiratory failure with hypoxia; I48.11 Longstanding persistent atrial fibrillation; I48.92 Unspecified atrial flutter; I50.23 Acute on chronic systolic (congestive) heart failure; I42.8 Other cardiomyopathies; D64.9 Anemia, unspecified; E87.6 Hypokalemia; E78.00 Pure hypercholesterolemia, unspecified; G47.33 Obstructive sleep apnea (adult) (pediatric); R27.0 Ataxia, unspecified; R53.1 Weakness; R53.81 Other malaise; Z66 Do not resuscitate; Z95.1 Presence of aortocoronary bypass graft; Z95.2 Presence of prosthetic heart valve; Z95.810 Presence of automatic (implantable) cardiac defibrillator; Z79.01 Long term (current) use of anticoagulants; Z79.899 Other long term (current) drug therapy; Z86.73 Personal history of transient ischemic attack (TIA), and cerebral infarction without residual deficits
CPT/HCPCS: 36415; 36600; 71045; 74230; 80048; 81001; 82550; 82803; 82962; 83735; 84100; 84443; 85025; 85610; 87426; 92526; 92610; 92611; 93005; 93306; 97163; 97166; 97530; 97535; 97802; 99251; 99283; J7030; J7050; J7120; Q9957; A4216; G0463; J0295; J1940; J3490

== ENCOUNTER 2021-05-27 21:41 | Inpatient (IN) | payer MEDICARE, OTHER, SELFPAY ==
[2021-05-23 04:18] VITALS: BMI 24.1
[2021-05-27] VITALS (8 sets, daily range): BP systolic 94–114; BP diastolic 53–96; PULSE 92–102; RESP 16–27; TEMP 36.4–37; O2SAT 90–95; BMI 23.8
--- NOTE | 2021-05-27 22:24 | RAD_ITS ---
HISTORY: CHF EXAMINATION/TECHNIQUE: XR Chest 1 View: COMPARISON: May 24, 2021 delivery date FINDINGS: LINES/DEVICES: Multilead left chest AICD. LUNGS: Increased patchy, mild central airspace opacification in bilateral mid and lower lungs. Mild diffuse interstitial thickening. No effusion. No pneumothorax. MEDIASTINUM: Increased cardiomegaly. Prosthetic cardiac valve. Unchanged sternotomy wires. MUSCULOSKELETAL: No acute osseous finding. ABDOMEN: Prominent air-filled colon RAD/Chest 1 View (Portable) IMPRESSION: Increased cardiomegaly with increased moderate perihilar mixed interstitial and alveolar edema. at 2348 Reported and signed by: Rohit Woodward MD Electronically Signed: Rohit Woodward MD at 23:47 EDT Tel , Service support ,
--- NOTE | 2021-05-27 22:24 | EKG12_ITS ---
Test Reason : SOB Blood Pressure : / mmHG Vent. Rate : 095 BPM Atrial Rate : 105 BPM P-R Int : 000 ms QRS Dur : 130 ms QT Int : 402 ms P-R-T Axes : 000 011 226 degrees QTc Int : 505 ms Ventricular-paced rhythm Abnormal ECG Confirmed by GERMANIA BARRY, WALLY ([id number]), technical editor ZULLY BRITTON ([id number]) on 05/29/2021 9:26:41 AM Referred By: SUSIE Confirmed By:WALLY SOLO MD
[2021-05-27 22:49] LABS: Absolute Lymphocyte Count 0.48 X10^3/uL (0.83-4.51); Absolute Neutrophil Count 7.7 X10^3/uL (2.0-7.7); Basophil# 0.03 X10^3/uL; Basophil% 0.3 % (0-1); Eosinophil# 0.02 X10^3/uL; Eosinophils% 0.2 % (0-5); Hematocrit 42.9 % (37-47); Hemoglobin 13.2 g/dL (12.0-15.0); Lymphocyte # 0.48 X10^3/ul (0.83-4.51); Lymphocyte % 5.3 % (19-41); Mean Corp Hgb Conc 30.8 g/dL (32-36); Mean Corpuscular Hgb 27.6 pg (27.0-32.0); Mean Corpuscular Volume 89.7 fL (81-99); Mean Platelet Vol. 10.7 fl (6.2-12.0); Monocyte# 0.82 X10^3/uL; Monocyte% 9.1 % (0-10); NRBC Flagged by Analyzer 0 % (0-5); Neutrophil # 7.65 X10^3/uL (2.7-7.7); Neutrophil % 84.7 % (47-70); POSITIVE COUNT YES; POSITIVE DIFFERENTIAL YES; Platelet Count 162 K/mm3 (150-450); RBC Distribution Width CV 18.4 % (11.6-14.6); Red Blood Count 4.78 M/mm3 (4.2-5.4)
[2021-05-27 23:18] LABS: International Normalized Ratio 3.5; Prothrombin Time (Protime)PT. 34.4 SECONDS (11.7-14.9)
[2021-05-27 23:19] LABS: Partial Thromboplast Time 45.6 Seconds (24.1-36.2)
[2021-05-27 23:25] LABS: ALB/GLOB Ratio 0.7 RATIO (0.9-2.4); AST(SGOT) 67 U/L (15-37); Alanine Aminotransfer ALT/SGPT 41 U/L (13-56); Albumin, Serum 2.8 g/dL (3.2-5.0); Alkaline Phosphatase 106 U/L (45-117); Anion Gap 3 (5-15); BUN 19 mg/dL (7-18); BUN/Creat Ratio 20.9 RATIO (10-20); Calcium,Total 8.8 mg/dL (8.5-10.1); Chloride 115 mmol/L (98-107); Creatinine, Serum 0.91 mg/dL (0.55-1.02); EST Glomerular Filtration Rate 64 mL/min (>60); Est Glom Filt Rate - Afr Amer 77 mL/min (>60); Glucose 138 mg/dL (74-106); Potassium 4.3 mmol/L (3.5-5.1); Protein, Total 6.8 g/dL (6.4-8.2); Sodium Level 147 mmol/L (136-145)
[2021-05-27 23:27] LABS: BNP,B-Type NATRIURETIC PEPTIDE > 5000.0 pg/mL (0-100); Differential Indicated SCAN CRITERIA MET
[2021-05-27 23:28] LABS: Differential Comment SCANNED
--- NOTE | 2021-05-27 23:55 | ED.VIS.DYS ---
HPI History of Present Illness Chief Complaint: Shortness of Breath Informant: patient, legal guardian, spouse/S.O., family, EMS and SNF Narrative Narrative: Mrs. Castro is a 76-year-old female with a history of spinocerebellar ataxia, CVA, atrial fibrillation, and congestive heart failure with an ejection fraction of 10%. [facility] was felt to have some few crackles in her lungs but otherwise felt good. She had had a palliative care consult while in the hospital. This morning Dr. Baron and her talked and she was not ready to do hospice. This afternoon the patient abruptly became more hypoxic and more short of breath. She was found to have oxygen saturations into the 70s. She kept removing her oxygen mask from her. She did not know why she was doing that. 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 Seizures Sleep apnea Spinocerebellar ataxia Home Medications alpha lipoic acid 200 mg PO TID 04/24/15 [History Last Taken Unknown] alprazolam 0.25 mg PO BID 04/24/15 [History Last Taken 03/05/18] levocarnitine tartrate 500 mg PO TID 04/24/15 [History Last Taken Unknown] niacin 1,000 mg PO BID 04/24/15 [History Last Taken Unknown] calcium carbonate-vitamin D3 2 tab PO BID 04/05/16 [History Last Taken 03/05/18] coenzyme Q10 100 mg PO DAILY 04/05/16 [History Last Taken Unknown] folic acid 1 mg PO DAILY@0800 04/05/16 [History Last Taken Unknown] warfarin 2 mg PO SUTUWETHFRSA 04/05/16 [History Last Taken Unknown] warfarin 2 mg PO MO 05/12/16 [History Last Taken 06/02/16 3 mg] flaxseed oil 5 ml MISCELLANEOUS ONCE ml 10/29/18 [History Last Taken Unknown] dextran 70-hypromellose 0.1 %-0.3 % eye drops 1 drp OPHTHALMIC DAILY ml 05/06/19 [History Last Taken Unknown] amiodarone 200 mg tablet 200 mg PO DAILY #90 tab 04/17/20 [Rx Last Taken Unknown] rosuvastatin 20 mg tablet 20 mg PO QHS #90 tab 05/17/20 [Rx Last Taken Unknown] linaclotide 72 mcg capsule 72 mcg PO DAILY cap 02/20/21 [History Last Taken Unknown] magnesium 250 mg tablet 500 mg PO DAILY tab 02/20/21 [History Last Taken Unknown] carvedilol 3.125 mg tablet See Rx Instructions PO BID #270 tab 05/18/21 [Rx Last Taken Unknown] Entresto 1 tab PO BID 05/23/21 [History Last Taken Unknown] quetiapine [Seroquel] 25 mg PO BID 05/23/21 [History Last Taken Unknown] amoxicillin-pot clavulanate [Augmentin] 1 tab PO BID 4 Days #8 tab 05/25/21 [Rx Last Taken Unknown] furosemide 40 mg PO BIDLX #0 tab 05/25/21 [Rx Last Taken Unknown] potassium chloride [Klor-Con M20] 40 meq PO DAILYCM #0 tab 05/25/21 [Rx Last Taken Unknown] spironolactone 25 mg PO DAILY #0 tab 05/25/21 [Rx Last Taken Unknown] Allergy/AdvReac Type Severity Reaction Status Date / Time Iodinated Contrast Media Allergy Intermediate Rash Verified 05/27/21 21:49 [Iodinated Contrast Media - IV Dye] Tetracyclines AdvReac Unknown Rash Verified 05/27/21 21:49 wool AdvReac Rash Verified 05/27/21 21:49 chocolate Allergy Mild coughing/ra Uncoded 05/27/21 21:49 sh ragweed Allergy Mild red,itchy Uncoded 05/27/21 21:49 eyes beta cynthia AdvReac Intermediate Unknown Uncoded 05/27/21 21:49 Family History Father CAD (coronary artery disease) Mother CAD (coronary artery disease) CABG Surgical History H/O mitral valve replacement (06/2006) History of left heart catheterization (2005) Presence of biventricular implantable cardioverter-defibrillator (ICD) (03/05/18) Social History Smoking Status: Never smoker alcohol intake: never substance use type: does not use what type of physical activity do you participate in: walking and weight training frequency: daily duration: 15-30 minutes/day ROS ROS ED Constitutional Constitutional ED: Denies chills or weight loss Eyes Eyes: Denies change in vision or diplopia ENT ENT ED: Denies ear pain, rhinorrhea or sore throat Cardiovascular Cardiovascular: Reports orthopnea; Denies chest pain, palpitations or racing heartbeat Respiratory/Chest Respiratory/Chest: Reports cough, dyspnea, dyspnea on exertion and orthopnea Gastrointestinal Gastrointestinal: Denies abdominal pain, diarrhea, nausea or vomiting Genitourinary Genitourinary ED: Denies dysuria, hematuria or urinary frequency Musculoskeletal Musculoskeletal: Denies arthralgias or myalgias Integumentary Denies abscess or rash Neurologic Neurologic: Denies headache(s) or weakness Psychiatric Psychiatric: Denies anxiety, depression, suicidal ideation or suicidal thoughts Endocrine Endocrinology: Denies polydipsia, polyphagia or polyuria Allergic/Immunologic Allergic/Immunologic ED: Denies mouth swelling, tongue swelling or urticaria EXAM Physical Exam Const Vital Signs: 05/27/21 21:43 05/27/21 21:50 05/27/21 22:03 Temperature 97.6 F L 97.6 F L Temperature Source Temporal Temporal Pulse Rate 99 99 96 Respiratory Rate 25 H 25 H 27 H Respiratory Effort Short of Breath Labored Respiratory Depth Shallow Respiratory Pattern Tachypnea Blood Pressure 94/53 L 94/53 L 100/63 Blood Pressure Mean 66 66 75 Pulse Ox 91 91 95 Oxygen Delivery Method Non-Rebreather Non-Rebreather Non-Rebreather Oxygen Flow Rate (L/min) 05/27/21 22:17 05/27/21 22:57 05/27/21 23:01 Temperature 98.6 F Temperature Source Oral Pulse Rate 102 H 92 Respiratory Rate 23 H 19 H Respiratory Effort Respiratory Depth Respiratory Pattern Blood Pressure 95/63 111/65 Blood Pressure Mean 73 80 Pulse Ox 94 94 92 Oxygen Delivery Method Non-Rebreather Non-Rebreather Non-Rebreather Oxygen Flow Rate (L/min) 15 15 15 05/27/21 23:47 05/27/21 23:48 Temperature 98.5 F Temperature Source Temporal Pulse Rate 98 101 H Respiratory Rate 22 H 22 H Respiratory Effort Respiratory Depth Respiratory Pattern Blood Pressure 114/96 H 114/96 H Blood Pressure Mean 102 102 Pulse Ox 91 90 Oxygen Delivery Method Non-Rebreather Non-Rebreather Oxygen Flow Rate (L/min) 15 15 Positive well nourished and well developed General Appearance ED: well developed HEENT Reports normocephalic, head/scalp atraumatic and moist mucous membranes Eyes PERRL and EOMs intact bilaterally Neck no lymphadenopathy, supple and no JVD Resp Resp Narrative: Patient is dyspneic with accessory muscle use. Auscultation: rales Cardio regular rhythm and no murmurs Rate: tachycardic GI normal to inspection, nondistended, normoactive bowel sounds and non-tender Palpation: soft Back/Spine no CVA tenderness and normal ROM Extremity normal to inspection General Extremety ED: Negative for edema General Extremity: Negative for edema Neuro oriented x3 and CN's II-XII intact bilaterally Sensorium / Orientation: alert Motor Exam: strength 5/5 throughout Psych mental status grossly normal Mood & Affect: Negative for depressed or tearful Skin no rashes or lesions noted and no wounds MDM MDM MDM Narrative Medical decision making narrative: My interpretation of the chest x-ray is congestive heart failure. Creatinine 0.91. Beta natruretic peptide of 5000. Troponin III 110. Patient is not complaining of any chest pain. Patient was requiring nonrebreather mask at 15 L with O2 saturations of only 90 to 91%. She will receive Lasix and BiPAP. I spoke with Dr. Baron as well as the patient's son Castro. The plan will be for admission. Lab Data Attestation: I reviewed the patient's lab results. Labs: Laboratory Results - last 24 hr 05/27/21 05/27/21 05/27/21 22:39 22:39 22:39 WBC 9.0 RBC 4.78 Hgb 13.2 Hct 42.9 MCV 89.7 MCH 27.6 MCHC 30.8 L RDW Std Deviation 58.0 H RDW Coeff of Loren 18.4 H Plt Count 162 MPV 10.7 Immature Gran % (Auto) 0.400 Neut % (Auto) 84.7 H Lymph % (Auto) 5.3 L Laurens % (Auto) 9.1 Eos % (Auto) 0.2 Baso % (Auto) 0.3 Absolute Neuts (auto) 7.7 Absolute Lymphs (auto) 0.48 L Nucleated RBC % 0 Differential Comment SCANNED PT INR APTT Sodium 147 H Potassium 4.3 Chloride 115 H Carbon Dioxide 29.0 Anion Gap 3 L BUN 19 H Creatinine 0.91 Estim Creat Clear Calc 63.50 Est GFR (MDRD) Af Amer 77 Est GFR (MDRD) Non-Af 64 BUN/Creatinine Ratio 20.9 H Glucose 138 H Calcium 8.8 Total Bilirubin 1.80 H AST 67 H ALT 41 Alkaline Phosphatase 106 Troponin I High Sens 310.0 H* B-Natriuretic Peptide > 5000.0 H Total Protein 6.8 Albumin 2.8 L Globulin 4.0 Albumin/Globulin Ratio 0.7 L 05/27/21 22:45 WBC RBC Hgb Hct MCV MCH MCHC RDW Std Deviation RDW Coeff of Loren Plt Count MPV Immature Gran % (Auto) Neut % (Auto) Lymph % (Auto) Laurens % (Auto) Eos % (Auto) Baso % (Auto) Absolute Neuts (auto) Absolute Lymphs (auto) Nucleated RBC % Differential Comment PT 34.4 H INR 3.5 APTT 45.6 H Sodium Potassium Chloride Carbon Dioxide Anion Gap BUN Creatinine Estim Creat Clear Calc Est GFR (MDRD) Af Amer Est GFR (MDRD) Non-Af BUN/Creatinine Ratio Glucose Calcium Total Bilirubin AST ALT Alkaline Phosphatase Troponin I High Sens B-Natriuretic Peptide Total Protein Albumin Globulin Albumin/Globulin Ratio Radiography Diagnostic Testing: Radiology Impression Chest X-Ray 05/27/21 22:24 IMPRESSION: Increased cardiomegaly with increased moderate perihilar mixed interstitial and alveolar edema. at [id number] Reported and signed by: Rohit Woodward MD Electronically Signed: Rohit Woodward MD at 23:47 EDT Tel , Service support , EKG Initial EKG: Attestation: I personally reviewed and interpreted this EKG as follows: Comments: EKG is ventricularly paced rhythm at a rate of 95 bpm Discharge Plan Dx/Rx/DC Orders Clinical Impression: Congestive heart failure, Acute hypoxemic respiratory failure Disposition Disposition: Acute Care Hospital [facility]
[2021-05-28] VITALS (29 sets, daily range): BP systolic 85–152; BP diastolic 53–99; PULSE 67–101; RESP 14–38; TEMP 36.1–36.8; O2SAT 83–100; BMI 23.8
[2021-05-28] MEDS: Furosemide 100 MG/10 ML Vial 60 MG IV (00:01)
--- NOTE | 2021-05-28 00:38 | NURSING ---
upset that ambulance did not bring the patient's belongings when they brought her in today and states they should have known. [facility] called to confirm they did not bring it and they confirm no bags were brought in. The is upset and states that is stupid.
--- NOTE | 2021-05-28 02:13 | HP.PCM.HOS_ITS ---
HPI - General General Date of Admission: 05/28/21 HPI Narrative ELIZABETH JOE, is a 76 F with multiple comorbidities was discharged on 05/25 to SNF and was sent back for increasing shortness of breath at [facility] and agitation. Patient was found to have crackles, hypoxic and pulse ox in 70s therefore sent to ER. Patient was also agitated removing her oxygen mask. Prior to that, patient was discharged with palliative care follow-up in longterm. On the day of admission, patient was seen by PCP, Dr. Baron and she did not agree for hospice therefore admitted. In ED, she was given Lasix 60 mg IV and Mcdonald catheter inserted in ED. Twelve- lead EKG shows ventricularly paced rhythm. Chest x-ray increased interstitial and alveolar edema. 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 Seizures Sleep apnea Spinocerebellar ataxia Home Medications alpha lipoic acid 200 mg PO TID 04/24/15 [History Last Taken Unknown] alprazolam 0.25 mg PO BID 04/24/15 [History Last Taken 03/05/18] levocarnitine tartrate 500 mg PO TID 04/24/15 [History Last Taken Unknown] niacin 1,000 mg PO BID 04/24/15 [History Last Taken Unknown] calcium carbonate-vitamin D3 2 tab PO BID 04/05/16 [History Last Taken 03/05/18] coenzyme Q10 100 mg PO DAILY 04/05/16 [History Last Taken Unknown] folic acid 1 mg PO DAILY@0800 04/05/16 [History Last Taken Unknown] warfarin 2 mg PO SUTUWETHFRSA 04/05/16 [History Last Taken Unknown] warfarin 2 mg PO MO 05/12/16 [History Last Taken 06/02/16 3 mg] flaxseed oil 5 ml MISCELLANEOUS ONCE ml 10/29/18 [History Last Taken Unknown] dextran 70-hypromellose 0.1 %-0.3 % eye drops 1 drp OPHTHALMIC DAILY ml 05/06/19 [History Last Taken Unknown] amiodarone 200 mg tablet 200 mg PO DAILY #90 tab 04/17/20 [Rx Last Taken Unknown] rosuvastatin 20 mg tablet 20 mg PO QHS #90 tab 05/17/20 [Rx Last Taken Unknown] linaclotide 72 mcg capsule 72 mcg PO DAILY cap 02/20/21 [History Last Taken Unknown] magnesium 250 mg tablet 500 mg PO DAILY tab 02/20/21 [History Last Taken Unknown] carvedilol 3.125 mg tablet See Rx Instructions PO BID #270 tab 05/18/21 [Rx Last Taken Unknown] Entresto 1 tab PO BID 05/23/21 [History Last Taken Unknown] quetiapine [Seroquel] 25 mg PO BID 05/23/21 [History Last Taken Unknown] amoxicillin-pot clavulanate [Augmentin] 1 tab PO BID 4 Days #8 tab 05/25/21 [Rx Last Taken Unknown] furosemide 40 mg PO BIDLX #0 tab 05/25/21 [Rx Last Taken Unknown] potassium chloride [Klor-Con M20] 40 meq PO DAILYCM #0 tab 05/25/21 [Rx Last Taken Unknown] spironolactone 25 mg PO DAILY #0 tab 05/25/21 [Rx Last Taken Unknown] Allergy/AdvReac Type Severity Reaction Status Date / Time Iodinated Contrast Media Allergy Intermediate Rash Verified 05/27/21 21:49 [Iodinated Contrast Media - IV Dye] Tetracyclines AdvReac Unknown Rash Verified 05/27/21 21:49 wool AdvReac Rash Verified 05/27/21 21:49 chocolate Allergy Mild coughing/ra Uncoded 05/27/21 21:49 sh ragweed Allergy Mild red,itchy Uncoded 05/27/21 21:49 eyes beta cynthia AdvReac Intermediate Unknown Uncoded 05/27/21 21:49 Family History Father CAD (coronary artery disease) Mother CAD (coronary artery disease) CABG Surgical History H/O mitral valve replacement (06/2006) History of left heart catheterization (2005) Presence of biventricular implantable cardioverter-defibrillator (ICD) (03/05/18) Social History Smoking Status: Never smoker alcohol intake: never substance use type: does not use what type of physical activity do you participate in: walking and weight training frequency: daily duration: 15-30 minutes/day Vital Signs Vital Signs Vital Signs: 05/27/21 21:43 05/27/21 21:50 05/27/21 22:03 Temperature 97.6 F L 97.6 F L Temperature Source Temporal Temporal Pulse Rate 99 99 96 Respiratory Rate 25 H 25 H 27 H Respiratory Effort Short of Breath Labored Respiratory Depth Shallow Respiratory Pattern Tachypnea Blood Pressure 94/53 L 94/53 L 100/63 Blood Pressure Mean 66 66 75 Blood Pressure Source Blood Pressure Position Blood Pressure Location Pulse Ox 91 91 95 Oxygen Delivery Method Non-Rebreather Non-Rebreather Non-Rebreather Oxygen Flow Rate (L/min) 15 15 15 Fraction of Inspired Oxygen (FIO2) 05/27/21 22:17 05/27/21 22:57 05/27/21 23:01 Temperature 98.6 F Temperature Source Oral Pulse Rate 102 H 92 Respiratory Rate 23 H 19 H Respiratory Effort Respiratory Depth Respiratory Pattern Blood Pressure 95/63 111/65 Blood Pressure Mean 73 80 Blood Pressure Source Blood Pressure Position Blood Pressure Location Pulse Ox 94 94 92 Oxygen Delivery Method Non-Rebreather Non-Rebreather Non-Rebreather Oxygen Flow Rate (L/min) 15 15 15 Fraction of Inspired Oxygen (FIO2) 05/27/21 23:47 05/27/21 23:48 05/28/21 00:05 Temperature 98.5 F Temperature Source Temporal Pulse Rate 98 101 H 96 Respiratory Rate 22 H 22 H 30 H Respiratory Effort Respiratory Depth Respiratory Pattern Tachypnea Blood Pressure 114/96 H 114/96 H Blood Pressure Mean 102 102 Blood Pressure Source Blood Pressure Position Blood Pressure Location Pulse Ox 91 90 97 Oxygen Delivery Method Non-Rebreather Non-Rebreather Oxygen Flow Rate (L/min) 15 15 Fraction of Inspired Oxygen (FIO2) 55 05/28/21 00:21 05/28/21 00:34 05/28/21 01:43 Temperature 98.3 F 97.6 F L Temperature Source Temporal Temporal Pulse Rate 67 96 Respiratory Rate 16 19 H Respiratory Effort Respiratory Depth Respiratory Pattern Blood Pressure 108/87 H 100/66 Blood Pressure Mean 94 77 Blood Pressure Source Monitor Blood Pressure Position Supine Blood Pressure Location Right Arm Pulse Ox 98 96 100 Oxygen Delivery Method Bi-pap Bi-pap Bi-pap Oxygen Flow Rate (L/min) Fraction of Inspired Oxygen (FIO2) 55 55 05/28/21 01:45 05/28/21 01:54 05/28/21 02:00 Temperature 97.6 F L Temperature Source Temporal Pulse Rate 95 91 Respiratory Rate 20 H Respiratory Effort Labored Respiratory Depth Deep Respiratory Pattern Irregular Blood Pressure 102/68 Blood Pressure Mean 79 Blood Pressure Source Monitor Blood Pressure Position Semi-Fowlers Blood Pressure Location Right Arm Pulse Ox 99 Oxygen Delivery Method Bi-pap Bi-pap Oxygen Flow Rate (L/min) Fraction of Inspired Oxygen (FIO2) 55 55 Weight Weight: 185 lb 13.595 oz Body Mass Index (BMI) 23.8 Physical Exam Narrative General: Drowsy, lethargic. HEENT: Atraumatic, PERRLA, EOMI, Normocephalic Oral: No Gingival or Mucosal Lesions/ Ulcerations Neck: Supple, No JVD, Negative Carotid Bruits Lungs: Air entry diminished in bilateral lung bases. No crepitation/rhonchi Cardiovascular: Ventricular paced rhythm.metallic click sound. Open midsternal surgical scar status post MVR. Left subclavicular AICD. Systolic murmur over LLSB. Abdomen: Bowel Sounds Present, Soft, Non Tender, Non-Distended : No renal angle tenderness. No suprapubic tenderness. Mcdonald catheter shows clear urine. Extremities: No edema, Capillary Refill Less than 3 Seconds Skin: No rashes, No breakdown Musculoskeletal: 4/5 muscle strength at major joints in lower extremities. DTR 3/4 bilateral knees and ankle reflexes. Neurological: Cranial nerves II-XII grossly intact, DTR 2+/4 and Symmetrical, Neuro grossly intact Psych/Mental Status: Flat affect Results Lab / Micro Data Result Diagrams: 05/27/21 22:39 05/27/21 22:39 Labs: Laboratory Results - last 24 hr 05/27/21 22:39: WBC 9.0, RBC 4.78, Hgb 13.2, Hct 42.9, MCV 89.7, MCH 27.6, MCHC 30.8 L, RDW Std Deviation 58.0 H, RDW Coeff of Loren 18.4 H, Plt Count 162, MPV 10.7, Immature Gran % (Auto) 0.400, Neut % (Auto) 84.7 H, Lymph % (Auto) 5.3 L, [place] % (Auto) 9.1, Eos % (Auto) 0.2, Baso % (Auto) 0.3, Absolute Neuts (auto) 7.7, Absolute Lymphs (auto) 0.48 L, Nucleated RBC % 0, Differential Comment SCANNED 05/27/21 22:39: Sodium 147 H, Potassium 4.3, Chloride 115 H, Carbon Dioxide 29.0, Anion Gap 3 L, BUN 19 H, Creatinine 0.91, Estim Creat Clear Calc 63.50, Est GFR (MDRD) Af Amer 77, Est GFR (MDRD) Non-Af 64, BUN/Creatinine Ratio 20.9 H , Glucose 138 H, Calcium 8.8, Total Bilirubin 1.80 H, AST 67 H, ALT 41, Alkaline Phosphatase 106, Troponin I High Sens 310.0 H*, Total Protein 6.8, Albumin 2.8 L , Globulin 4.0, Albumin/Globulin Ratio 0.7 L 05/27/21 22:39: B-Natriuretic Peptide > 5000.0 H 05/27/21 22:45: PT 34.4 H, INR 3.5, APTT 45.6 H Radiology Impression Chest X-Ray 05/27/21 22:24 IMPRESSION: Increased cardiomegaly with increased moderate perihilar mixed interstitial and alveolar edema. at 2348 Reported and signed by: Rohit Woodward MD Electronically Signed: Rohit Woodward MD at 23:47 EDT Tel , Service support , Assessment & Plan Assessment/Plan (1) Congestive heart failure: QUALIFIERS: Heart failure type: systolic Heart failure chronicity: acute on chronic Qualified Code(s): I50.23 - Acute on chronic systolic (congestive) heart failure PLAN: 1. Acute on chronic systolic biventricular heart failure, probably due to non-STEMI: Patient is being admitted in PCU. Troponin is elevated to 310. BNP more than 50,000. Patient had 60 mg of IV Lasix in ER and started on 40 mg IV twice daily. Patient home medications spironolactone, magnesium was continued. Patient had recent echo on 05/24 reported EF 10%, severe global LV systolic dysfunction. Mild global RV systolic dysfunction. LA severely enlarged, RA moderately enlarged. Moderate 2+ TR with a stable appearing mitral valve apparatus. RVSP 29 mmHg. Serial troponin enzymes. Consult cardiology for further opinion. Hold warfarin as patient INR is elevated 3.5. Patient has a history of nonischemic cardiomyopathy, rheumatic MR status post mechanical mitral valve replacement, NSVT, chronic A. fib status post maze procedure, AICD, incomplete LBBB. 2. Generalized weakness with debility, spinocerebellar ataxia: Patient follows Dr. Del Cid. PT OT and speech evaluation. 4. Other comorbidities include dyslipidemia, generalized weakness and limited ADL: Home medications continued. Palliative care was consulted last time and admission in [facility] patient declined hospice care. VTE prophylaxis: Patient on Coumadin. INR supratherapeutic. Living will/advanced directive/end of life care: Patient does have living will or advanced directive. Mr. Jose Roberto Ornelas is next to kin. After discussion of benefits/risks procedures involved with full code, DNR CC arrest and DNR CC, the patient is DNR-CC Arrest with no intubation Patient does want artificial life support including intubation, tube feed, ventilator and/chest compression, central venous catheter, vasopressor and DC shock if needed Total time spent in [id number] encounter in discussion of advanced directive 16 minutes. Charges/Coding Visit Charges Inpatient E&M: 90894 Init Hosp L3
[2021-05-28 05:21] LABS: Absolute Lymphocyte Count 0.57 X10^3/uL (0.83-4.51); Absolute Neutrophil Count 6.9 X10^3/uL (2.0-7.7); Basophil# 0.02 X10^3/uL; Basophil% 0.2 % (0-1); Eosinophil# 0.02 X10^3/uL; Eosinophils% 0.2 % (0-5); Hematocrit 39.8 % (37-47); Hemoglobin 12.3 g/dL (12.0-15.0); Lymphocyte # 0.57 X10^3/ul (0.83-4.51); Lymphocyte % 6.9 % (19-41); Mean Corp Hgb Conc 30.9 g/dL (32-36); Mean Corpuscular Hgb 27.5 pg (27.0-32.0); Mean Platelet Vol. 11.1 fl (6.2-12.0); Monocyte# 0.74 X10^3/uL; Monocyte% 8.9 % (0-10); NRBC Flagged by Analyzer 0 % (0-5); Neutrophil % 83.2 % (47-70); POSITIVE DIFFERENTIAL YES; Platelet Count 159 K/mm3 (150-450); RBC Distribution Width CV 18.3 % (11.6-14.6); RBC Distribution Width SD 56.2 fl (35.1-43.9); Red Blood Count 4.47 M/mm3 (4.2-5.4); White Blood Count 8.3 K/mm3 (4.4-11.0)
[2021-05-28 05:35] LABS: Differential Indicated SCAN CRITERIA MET
[2021-05-28 05:59] LABS: Anion Gap 6 (5-15); BUN 18 mg/dL (7-18); BUN/Creat Ratio 20.2 RATIO (10-20); Calcium,Total 8.6 mg/dL (8.5-10.1); Chloride 114 mmol/L (98-107); Cholesterol 98 mg/dL (200); Creatinine, Serum 0.89 mg/dL (0.55-1.02); EST Glomerular Filtration Rate 65 mL/min (>60); Est Glom Filt Rate - Afr Amer 79 mL/min (>60); Estimated Creatinine Clearance 64.93 ml/min; Glucose 132 mg/dL (74-106); High Density Lipoprotein 33 mg/dL; Magnesium 2.1 mg/dL (1.6-2.6); Phosphorus 2.8 mg/dL (2.5-4.9); Potassium 3.9 mmol/L (3.5-5.1); Sodium Level 148 mmol/L (136-145); Triglycerides 79 mg/dL; Very Low Density Lipoprotein 16 mg/dL (5-40)
--- NOTE | 2021-05-28 07:36 | PCM.CONS.C ---
Assessment & Plan Assessment/Plan (1) NSTEMI, initial episode of care: PLAN: She does appear to have elevated cardiac enzymes which is suggestive of a non-ST elevation myocardial infarction. I suspect that this is on the basis of his severe left ventricular systolic dysfunction. The global nature suggests that this may not be obstructive coronary disease related. I would recommend at this time expectant management. She is anticoagulated which will be continued and she would also be on a baby aspirin together with her beta-cynthia. At this time I do not think that there are any plans to take it to the cardiac catheterization lab for invasive therapy. (2) Congestive heart failure: QUALIFIERS: Heart failure chronicity: acute on chronic Heart failure type: systolic Qualified Code(s): I50.23 - Acute on chronic systolic (congestive) heart failure PLAN: She does have congestive heart failure [employer] class IV and ACC stage D. The recommendation will be to continue with the Entresto, the diuretics, the beta-cynthia and Aldactone as tolerated. In addition she has been using BiPAP at night. I do not think that she is a candidate for dobutamine or milrinone at this time. (3) Nonischemic cardiomyopathy: PLAN: She does have a history of nonischemic cardiomyopathy with estimated ejection fraction at approximately 10%. This appears to be global in nature. I suspect this is due to a combination of events. Her atrial fibrillation, her valvular heart disease with replacement, and intrinsic cardiomyopathy is involved. I would recommend no changes without therapy but optimization of her beta-cynthia dose. As you know this has been hampered by her blood pressure being low. (4) H/O mitral valve replacement: PLAN: She does have a history of mitral valve replacement. She is on anticoagulation to maintain an INR of 2.5-3.5. The valve integrity appears to be stable. There is probably some chordal apparatus which is noted in the subvalvular area. (5) Longstanding persistent atrial fibrillation: PLAN: She does have chronic longstanding persistent atrial fibrillation flutter. Her ventricular response rate is controlled. I would not recommend that we make any other major changes with regard to this. Thank you for allowing me to participate in the care of your patient. Please don't hesitate to call if any issues arise. HPI Consult Data Date of Consult: 05/28/21 HPI Narrative HPI Narrative: ELIZABETH JOE, is a 76 F who presents again through the emergency room after being discharged less than 48 hours ago. She apparently was discharged to the extended care facility and developed more shortness of breath and was brought through the emergency room. Cardiac enzymes were obtained and were noted to be abnormal and climbing as well as an elevated natruretic peptide. She denied any chest pain or pedal edema or chronic cough. She apparently was fairly euvolemic apparently at the time she was discharged. 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 She has been compliant with all her medications and says that her exercise capacity remains stable. There has been perhaps minimal improvement she has not had any syncope occasionally she has had some dizziness. She is also had minimal shortness of breath with activity. She does not think that this is significantly different from before. She has not developed any significant or pedal edema. You do remember that in the summer of last year we obtained an echocardiogram which demonstrated an ejection fraction of 20% with akinesis of the lateral basal wall. During this recent hospitalization she had an ejection fraction evaluated by echocardiogram and it was estimated to be approximately 10%. It was thought by the radiochemical technician who evaluated her that she probably should be a candidate for palliative care or hospice. 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 Seizures Sleep apnea Spinocerebellar ataxia Home Medications alpha lipoic acid 200 mg PO TID 04/24/15 [History Last Taken Unknown] alprazolam 0.25 mg PO BID 04/24/15 [History Last Taken 03/05/18] levocarnitine tartrate 500 mg PO TID 04/24/15 [History Last Taken Unknown] niacin 1,000 mg PO BID 04/24/15 [History Last Taken Unknown] calcium carbonate-vitamin D3 2 tab PO BID 04/05/16 [History Last Taken 03/05/18] coenzyme Q10 100 mg PO DAILY 04/05/16 [History Last Taken Unknown] folic acid 1 mg PO DAILY@0800 04/05/16 [History Last Taken Unknown] warfarin 2 mg PO SUTUWETHFRSA 04/05/16 [History Last Taken Unknown] warfarin 2 mg PO MO 05/12/16 [History Last Taken 06/02/16 3 mg] flaxseed oil 5 ml MISCELLANEOUS ONCE ml 10/29/18 [History Last Taken Unknown] dextran 70-hypromellose 0.1 %-0.3 % eye drops 1 drp OPHTHALMIC DAILY ml 05/06/19 [History Last Taken Unknown] amiodarone 200 mg tablet 200 mg PO DAILY #90 tab 04/17/20 [Rx Last Taken Unknown] rosuvastatin 20 mg tablet 20 mg PO QHS #90 tab 05/17/20 [Rx Last Taken Unknown] linaclotide 72 mcg capsule 72 mcg PO DAILY cap 02/20/21 [History Last Taken Unknown] magnesium 250 mg tablet 500 mg PO DAILY tab 02/20/21 [History Last Taken Unknown] carvedilol 3.125 mg tablet See Rx Instructions PO BID #270 tab 05/18/21 [Rx Last Taken Unknown] Entresto 1 tab PO BID 05/23/21 [History Last Taken Unknown] quetiapine [Seroquel] 25 mg PO BID 05/23/21 [History Last Taken Unknown] amoxicillin-pot clavulanate [Augmentin] 1 tab PO BID 4 Days #8 tab 05/25/21 [Rx Last Taken Unknown] furosemide 40 mg PO BIDLX #0 tab 05/25/21 [Rx Last Taken Unknown] potassium chloride [Klor-Con M20] 40 meq PO DAILYCM #0 tab 05/25/21 [Rx Last Taken Unknown] spironolactone 25 mg PO DAILY #0 tab 05/25/21 [Rx Last Taken Unknown] Allergy/AdvReac Type Severity Reaction Status Date / Time Iodinated Contrast Media Allergy Intermediate Rash Verified 05/27/21 21:49 [Iodinated Contrast Media - IV Dye] chocolate flavor Allergy Other Verified 05/28/21 06:58 ragweed pollen Allergy Other Verified 05/28/21 06:58 Tetracyclines AdvReac Unknown Rash Verified 05/27/21 21:49 Beta-Blockers AdvReac NEEDS Verified 05/28/21 06:58 (Beta-Adrenergic Bloc FOLLOW-UP wool AdvReac Rash Verified 05/27/21 21:49 Family History Father CAD (coronary artery disease) Mother CAD (coronary artery disease) CABG Surgical History H/O mitral valve replacement (06/2006) History of left heart catheterization (2005) Presence of biventricular implantable cardioverter-defibrillator (ICD) (03/05/18) Social History Smoking Status: Never smoker alcohol intake: never substance use type: does not use what type of physical activity do you participate in: walking and weight training frequency: daily duration: 15-30 minutes/day ROS Constitutional Constitutional: Denies fever(s) or weight loss Eyes Eyes: Reports systems reviewed and no addt'l complaints, except as documented ENT HEENT: Reports systems reviewed and no addt'l complaints, except as documented Cardiovascular Cardiovascular: Reports other Respiratory/Chest Respiratory/Chest: Reports dyspnea on exertion Gastrointestinal Gastrointestinal: Denies change in bowel habits, nausea, vomiting or weight changes Genitourinary Genitourinary: Denies difficulty urinating Musculoskeletal Musculoskeletal: Denies joint stiffness or muscle weakness Integumentary Integumentary: Denies lesions Neurologic Neurologic: Denies dizziness or syncope Psychiatric Psychiatric: Denies anxiety Endocrine Endocrinology: Denies excessive sweating or fatigue Hematologic/Lymphatic Hematologic/Lymphatic: Denies anemia Allergic/Immunologic Allergic/Immunologic: Denies seasonal rhinorrhea Physical Exam Const oriented x3 and healthy appearing Orientation / Consciousness: awake HEENT normocephalic Eyes PERRL and conjunctivae normal Neck supple, no JVD and no carotid bruits Chest inspection of chest normal Resp normal respiratory effort and clear to auscultation bilaterally Cardio Palpation: normal PMI Rate: regular rate Rhythm: regular rhythm Heart Sounds: S1 normal and S2 normal Peripheral Pulses: pulses 2+ throughout GI normal to inspection, nondistended, normoactive bowel sounds Extremity normal to inspection and no clubbing, cyanosis or edema Psych mental status grossly normal Objective Data Vital Signs: Vital Signs Temp Pulse Resp BP Pulse Ox 97.2 F L 88 24 H 133/93 H 96 05/28/21 06:00 05/28/21 07:15 05/28/21 07:15 05/28/21 06:00 05/28/21 07:15 Oxygen Flow Rate (L/min) 15 Oxygen Delivery Method Bi-pap Weight: 186 lb 1.122 oz Body Mass Index (BMI) 23.8 Intake & Output: Intake and Output for Last 24 Hours 05/26/21 05/27/21 05/28/21 23:59 23:59 23:59 Output Total 1949 Balance -1949 Lab / Micro Data Result Diagrams: 05/28/21 04:36 05/28/21 04:36 Labs: Laboratory Results - last 24 hr 05/27/21 22:39: WBC 9.0, RBC 4.78, Hgb 13.2, Hct 42.9, MCV 89.7, MCH 27.6, MCHC 30.8 L, RDW Std Deviation 58.0 H, RDW Coeff of Loren 18.4 H, Plt Count 162, MPV 10.7, Immature Gran % (Auto) 0.400, Neut % (Auto) 84.7 H, Lymph % (Auto) 5.3 L, [place] % (Auto) 9.1, Eos % (Auto) 0.2, Baso % (Auto) 0.3, Absolute Neuts (auto) 7.7, Absolute Lymphs (auto) 0.48 L, Nucleated RBC % 0, Differential Comment SCANNED 05/27/21 22:39: Sodium 147 H, Potassium 4.3, Chloride 115 H, Carbon Dioxide 29.0, Anion Gap 3 L, BUN 19 H, Creatinine 0.91, Estim Creat Clear Calc 63.50, Est GFR (MDRD) Af Amer 77, Est GFR (MDRD) Non-Af 64, BUN/Creatinine Ratio 20.9 H, Glucose 138 H, Calcium 8.8, Total Bilirubin 1.80 H, AST 67 H, ALT 41, Alkaline Phosphatase 106, Troponin I High Sens 310.0 H*, Total Protein 6.8, Albumin 2.8 L, Globulin 4.0, Albumin/Globulin Ratio 0.7 L 05/27/21 22:39: B-Natriuretic Peptide > 5000.0 H 05/27/21 22:45: PT 34.4 H, INR 3.5, APTT 45.6 H 05/28/21 04:36: WBC 8.3, RBC 4.47, Hgb 12.3, Hct 39.8, MCV 89.0, MCH 27.5, MCHC 30.9 L, RDW Std Deviation 56.2 H, RDW Coeff of Loren 18.3 H, Plt Count 159, MPV 11.1, Immature Gran % (Auto) 0.600, Neut % (Auto) 83.2 H, Lymph % (Auto) 6.9 L, [place] % (Auto) 8.9, Eos % (Auto) 0.2, Baso % (Auto) 0.2, Absolute Neuts (auto) 6.9, Absolute Lymphs (auto) 0.57 L, Nucleated RBC % 0 05/28/21 04:36: Sodium 148 H, Potassium 3.9, Chloride 114 H, Carbon Dioxide 28.0, Anion Gap 6, BUN 18, Creatinine 0.89, Estim Creat Clear Calc 64.93, Est GFR (MDRD) Af Amer 79, Est GFR (MDRD) Non-Af 65, BUN/Creatinine Ratio 20.2 H, Glucose 132 H, Calcium 8.6, Phosphorus 2.8, Magnesium 2.1, Troponin I High Sens 1167.0 H*, Triglycerides 79, Cholesterol 98, LDL Cholesterol 49, VLDL Cholesterol 16, HDL Cholesterol 33 L Cardiology Labs/Tests 05/27/21 22:39: WBC 9.0, RBC 4.78, Hgb 13.2, Hct 42.9, MCV 89.7, MCH 27.6, MCHC 30.8 L, Plt Count 162, MPV 10.7, Immature Gran % (Auto) 0.400, Neut % (Auto) 84.7 H, Lymph % (Auto) 5.3 L, [place] % (Auto) 9.1, Eos % (Auto) 0.2, Baso % (Auto) 0.3, Absolute Neuts (auto) 7.7, Nucleated RBC % 0 05/27/21 22:39: Sodium 147 H, Potassium 4.3, Chloride 115 H, Carbon Dioxide 29.0, Anion Gap 3 L, BUN 19 H, Creatinine 0.91, Est GFR (MDRD) Af Amer 77, Est GFR (MDRD) Non-Af 64, BUN/Creatinine Ratio 20.9 H, Glucose 138 H, Calcium 8.8, Total Bilirubin 1.80 H 05/27/21 22:39: B-Natriuretic Peptide > 5000.0 H 05/27/21 22:45: PT 34.4 H, INR 3.5, APTT 45.6 H 05/28/21 04:36: WBC 8.3, RBC 4.47, Hgb 12.3, Hct 39.8, MCV 89.0, MCH 27.5, MCHC 30.9 L, Plt Count 159, MPV 11.1, Immature Gran % (Auto) 0.600, Neut % (Auto) 83.2 H, Lymph % (Auto) 6.9 L, [place] % (Auto) 8.9, Eos % (Auto) 0.2, Baso % (Auto) 0.2, Absolute Neuts (auto) 6.9, Nucleated RBC % 0 05/28/21 04:36: Sodium 148 H, Potassium 3.9, Chloride 114 H, Carbon Dioxide 28.0, Anion Gap 6, BUN 18, Creatinine 0.89, Est GFR (MDRD) Af Amer 79, Est GFR (MDRD) Non-Af 65, BUN/Creatinine Ratio 20.2 H, Glucose 132 H, Calcium 8.6, Phosphorus 2.8, Magnesium 2.1, Triglycerides 79, Cholesterol 98, LDL Cholesterol 49, VLDL Cholesterol 16, HDL Cholesterol 33 L Rhythm: EKG: Atrial fibrillation with a controlled ventricular response rate ECHO: Stress Test: Cardiac Cath: PCI: CT Surgery: Holter monitor: EPS: PPM: CXR: Chest CT Scan: Radiography Diagnostic Testing: Radiology Impression Chest X-Ray 05/27/21 22:24 IMPRESSION: Increased cardiomegaly with increased moderate perihilar mixed interstitial and alveolar edema. at 2348 Reported and signed by: Rohit Woodward MD Electronically Signed: Rohit Woodward MD at 23:47 EDT Tel , Service support ,
[2021-05-28 09:01] LABS: Troponin-I HS 1524.9 pg/mL (3.0-53.7)
[2021-05-28] MEDS: Glycerin/Hypromellose/PEG400 15 ml Bottle 1 DRP EACH EYE (10:33)
--- NOTE | 2021-05-28 10:45 | CASEMGMT ---
ROB sent [facility] to [facility]. ROB faxed updates to [facility]. Also, patient wanted her primary care physician, Dr Baron to be her Healthcare POA. However, per [facility] POA documents one cannot name his/her attending physician to be POA. ROB will check with patient to see who she would like to be her POA. She is currently lethargic per RN. Marnie Parra DIRECT MARKETING MANAGERJuan KEITA
--- NOTE | 2021-05-28 14:28 | PCM.PN.HOSP ---
Documented by User: Philly Ramos SLOT MACHINE DEPARTMENT FLOORPERSON, SLOT MACHINE DEPARTMENT FLOORPERSON-C 05/28/21 14:45 Subjective Subjective Patient seen and examined. Alert, on BiPAP. Notes improvement in breathing. Appears comfortable in bed. Objective Data Objective Data Vital Signs: Vital Signs Temp Pulse Resp BP Pulse Ox 97.7 F L 84 20 H 88/66 L 92 05/28/21 14:00 05/28/21 14:00 05/28/21 14:00 05/28/21 14:00 05/28/21 14:00 Oxygen Flow Rate (L/min) 6 Oxygen Delivery Method Nasal Cannula Weight: 186 lb 1.122 oz Body Mass Index (BMI) 23.8 Intake & Output: Intake and Output for Last 24 Hours 05/26/21 05/27/21 05/28/21 23:59 23:59 23:59 Intake Total 0 / 0 Output Total 2149 / 2149 Balance -0 / -2149 Lab / Micro Data Result Diagrams: 05/28/21 04:36 05/28/21 04:36 Labs: Laboratory Results - last 24 hr 05/27/21 22:39: WBC 9.0, RBC 4.78, Hgb 13.2, Hct 42.9, MCV 89.7, MCH 27.6, MCHC 30.8 L, RDW Std Deviation 58.0 H, RDW Coeff of Loren 18.4 H, Plt Count 162, MPV 10.7, Immature Gran % (Auto) 0.400, Neut % (Auto) 84.7 H, Lymph % (Auto) 5.3 L, [place] % (Auto) 9.1, Eos % (Auto) 0.2, Baso % (Auto) 0.3, Absolute Neuts (auto) 7.7, Absolute Lymphs (auto) 0.48 L, Nucleated RBC % 0, Differential Comment SCANNED 05/27/21 22:39: Sodium 147 H, Potassium 4.3, Chloride 115 H, Carbon Dioxide 29.0, Anion Gap 3 L, BUN 19 H, Creatinine 0.91, Estim Creat Clear Calc 63.50, Est GFR (MDRD) Af Amer 77, Est GFR (MDRD) Non-Af 64, BUN/Creatinine Ratio 20.9 H, Glucose 138 H, Calcium 8.8, Total Bilirubin 1.80 H, AST 67 H, ALT 41, Alkaline Phosphatase 106, Troponin I High Sens 310.0 H*, Total Protein 6.8, Albumin 2.8 L, Globulin 4.0, Albumin/Globulin Ratio 0.7 L 05/27/21 22:39: B-Natriuretic Peptide > 5000.0 H 05/27/21 22:45: PT 34.4 H, INR 3.5, APTT 45.6 H 05/28/21 04:36: WBC 8.3, RBC 4.47, Hgb 12.3, Hct 39.8, MCV 89.0, MCH 27.5, MCHC 30.9 L, RDW Std Deviation 56.2 H, RDW Coeff of Loren 18.3 H, Plt Count 159, MPV 11.1, Immature Gran % (Auto) 0.600, Neut % (Auto) 83.2 H, Lymph % (Auto) 6.9 L, [place] % (Auto) 8.9, Eos % (Auto) 0.2, Baso % (Auto) 0.2, Absolute Neuts (auto) 6.9, Absolute Lymphs (auto) 0.57 L, Nucleated RBC % 0 05/28/21 04:36: Sodium 148 H, Potassium 3.9, Chloride 114 H, Carbon Dioxide 28.0, Anion Gap 6, BUN 18, Creatinine 0.89, Estim Creat Clear Calc 64.93, Est GFR (MDRD) Af Amer 79, Est GFR (MDRD) Non-Af 65, BUN/Creatinine Ratio 20.2 H, Glucose 132 H, Calcium 8.6, Phosphorus 2.8, Magnesium 2.1, Troponin I High Sens 1167.0 H*, Triglycerides 79, Cholesterol 98, LDL Cholesterol 49, VLDL Cholesterol 16, HDL Cholesterol 33 L 05/28/21 08:20: Troponin I High Sens 1524.9 H* Radiography Diagnostic Testing: Radiology Impression Chest X-Ray 05/27/21 22:24 IMPRESSION: Increased cardiomegaly with increased moderate perihilar mixed interstitial and alveolar edema. at 1268 Reported and signed by: Rohit Woodward MD Electronically Signed: Rohit Woodward MD at 23:47 EDT Tel , Service support , Physical Exam Const alert Constitutional Narrative: On BiPAP Orientation / Consciousness: oriented to person, oriented to place and oriented to time Nutritional Appearance: cachectic HEENT normocephalic Mouth: dry mucous membranes Eyes PERRL, EOMs intact bilaterally and conjunctivae normal Neck no lymphadenopathy Resp clear to auscultation bilaterally Auscultation: diminished lung sounds Cardio regular rate, regular rhythm and no murmurs Peripheral Pulses: pulses 2+ throughout GI normal to inspection, nondistended, normoactive bowel sounds, non-tender and non-distended Extremity normal to inspection Skin no rashes or lesions noted Lesions: no lesions Rashes: no rashes Trauma: no lacerations or abrasions Neuro CN's II-XII intact bilaterally, no focal motor deficits, no sensory deficits noted and deep tendon reflexes 2+ bilaterally Psych mental status grossly normal and affect normal Assessment & Plan Assessment/Plan (1) Acute hypoxemic respiratory failure: (2) Congestive heart failure: QUALIFIERS: Heart failure chronicity: acute on chronic Heart failure type: systolic Qualified Code(s): I50.23 - Acute on chronic systolic (congestive) heart failure PLAN: 1. Acute hypoxic respiratory failure secondary to acute on chronic heart failure with reduced ejection fraction-continue supplement oxygen to maintain O2 at above 90% BiPAP as tolerated. IV Lasix. Strict I&O. Daily weight. Fluid restriction. 2. NSTEMI-cardiology consulted. Suspected secondary to severe systolic dysfunction. Plan for medical management. Aspirin. 3. Nonischemic cardiomyopathy s/p AICD-continue medical management. Recent echocardiogram 05/24/2021 demonstrated an EF of 10%. IV Lasix as noted above. On Entresto. 4. History of mechanical mitral valve replacement/history of rheumatic valvular disease 5. Longstanding persistent atrial fibrillation-on carvedilol, amiodarone, Coumadin. 6. History of stroke with residual dysarthria/dysphagia-on Coumadin. Not on statin. Speech therapy consult. Aspirin added. 7. Chronic mild normocytic anemia-stable. 8. REBECCA-continue home PAP regimen. 9. Generalized weakness with debility/spinal cerebral ataxia- follows with Dr. Del Cid, neurology. PT/OT. Recent SNF DC. DVT prophylaxis- coumadin Discharge planning: Return to SNF when medically stable. Recent palliative consult. Patient not amendable to hospice at this time. This patient was seen by ALYSHA Lee under the supervision of Dr. Nieto. Documented by User: Dr. Marti Nieto MD 05/28/21 17:30 Objective Data Lab / Micro Data Result Diagrams: 05/28/21 04:36 05/28/21 04:36 Charges/Coding Addendum Addendum: Patient seen by Philly ENCARNACION under my supervision Patient is a 76 y/o with a PMH as outlined who was admitted with a complaint of shortness of breath and agitation. She was brought in from her [facility] on 05/25/2021. Admission this time, she was found to be hypoxic and she was saturating in the 70s. Of note, she had been discharged to a long term with palliative care and on the day of admission, she was seen by her PCP in the long term but she refused hospice care and so was brought into the ED. Chest x-ray showed increased interstitial and alveolar edema so she has been admitted to be managed for acute on chronic heart failure with preserved EF. Troponins were also elevated so she has been managed for non-STEMI. Patient seen and examined. She was on BIPAP at time of review. She had no complaints and review of systems otherwise negative. Patient looks very frail and chronically ill. O/E: Const alert, Constitutional Narrative: On BiPAP Orientation / Consciousness: oriented to person, oriented to place and oriented to time Nutritional Appearance: cachectic HEENT normocephalic Mouth: dry mucous membranes Eyes PERRL, EOMs intact bilaterally and conjunctivae normal Neck no lymphadenopathy Resp diminished breath sounds bilaterally, no wheezes or crackles. On BIPAP Cardio regular rate, regular rhythm and no murmurs Peripheral Pulses: pulses 2+ throughout GI normal to inspection, nondistended, normoactive bowel sounds, non-tender and non-distended Extremity normal to inspection Skin no rashes or lesions noted Lesions: no lesions Rashes: no rashes Trauma: no lacerations or abrasions Neuro CN's II-XII intact bilaterally, no focal motor deficits, no sensory deficits noted and deep tendon reflexes 2+ bilaterally Psych mental status flat. Plan is to continue diuresis with IV lasix. Wean off BiPAP as tolerated and titrate oxygen to maintain saturation above 90%. Monitor intake and output and fluid restriction 1500 cc daily. Patient currently on aspirin. Cardiology was consulted and plan is for medical management. Most recent echo of 05/24/2021 showed EF of 10%. She is also on Entresto. Continue carvedilol and amiodarone as well as Coumadin for A. fib. PT OT on board. Prognosis is very poor. Rest as per ALYSHA Lee's note which I reviewed and endorsed. Visit Charges Inpatient E&M: 93144 Subs Hosp L3
--- NOTE | 2021-05-28 14:30 | CASEMGMT ---
SW met with patient. Introduced self and role at [facility]. SW reminded patient of our conversation last week about her Healthcare POA and that she cannot have her Primary Care Doctor as her HCPOA. SW asked her if she knew who she wanted to be her POA and she said she has not decided. Marnie KEITA
--- NOTE | 2021-05-28 15:06 | CASEMGMT ---
RN CM Chart review: Patient was admitted 05/24-05/25 for fall, recent decline, FTT, Acute on Chronic CHF. See RN CM assessment from 05/23/21. Palliative consult placed 05/24/21. Patient was discharged to [facility]. Patient returned 05/28/21 from [place] to [facility] ED for SOB. Patient was seen by PCP at [place] on 05/28/21. Patient had become abruptly hypoxic and SOB at SNF and brought to ED. Patient admitted for exacerbation of CHF. Patient is currently on 6lpm NC and Bipap while sleeping. Will monitor for oxygen needs at discharge. Disposition Plan: [place] when medically ready, follow-up with palliative care.
--- NOTE | 2021-05-28 16:25 | CHAPLAIN ---
Type of Pastoral Visit _x__ Initial Visit ___ Follow-up Visit ___ On-call Visit ___ General Patient Visit ___ Spiritual Assessment ___ Family Conference ___ Bereavement ___ Rapid Response ___ Code Blue ___ Other (describe below) Pastoral Care Referral From _x__ Patient ___ Family ___ Nurse ___ Physician ___ Legal Clerk ___ Data Warehouse Analyst ___ Other (describe below) Sacrament/Intervention ___ Active listening ___ Anointing ___ Denominational ___ Bereavement ___ Communion ___ Eloisa exploration ___ ___ Life review ___ Prayer ___ Reconciliation ___ Sacrament of Sick _x__ Supportive presence ___ Wedding ___ Other (describe below) Pastoral Comments therapy had just finished with pt; pt looks weak and responds slowly to questions; spouse is in chair in corner and speaks in critical tone to inquiry about needs or concerns; spouse answers not very well when asked; pt just smiles; offer of support or prayer is ignored by spouse and declined by pt; visit ends
[2021-05-28] MEDS: 0.9% Saline Lock 10 ML Syringe IV (17:13)
--- NOTE | 2021-05-28 19:58 | NURSING ---
Pandemic documentation started 05/28/21 at 1900.
[2021-05-29] VITALS (16 sets, daily range): BP systolic 83–107; BP diastolic 60–76; PULSE 71–109; RESP 14–26; TEMP 36.1–36.6; O2SAT 91–99
[2021-05-29 07:35] LABS: Absolute Lymphocyte Count 0.52 X10^3/uL (0.83-4.51); Absolute Neutrophil Count 8.1 X10^3/uL (2.0-7.7); Basophil# 0.02 X10^3/uL; Basophil% 0.2 % (0-1); Eosinophil# 0.02 X10^3/uL; Eosinophils% 0.2 % (0-5); Hematocrit 41.9 % (37-47); Hemoglobin 12.9 g/dL (12.0-15.0); Lymphocyte # 0.52 X10^3/ul (0.83-4.51); Lymphocyte % 5.5 % (19-41); Mean Corp Hgb Conc 30.8 g/dL (32-36); Mean Corpuscular Hgb 27.5 pg (27.0-32.0); Mean Corpuscular Volume 89.3 fL (81-99); Mean Platelet Vol. 11.7 fl (6.2-12.0); Monocyte# 0.77 X10^3/uL; Monocyte% 8.1 % (0-10); NRBC Flagged by Analyzer 0 % (0-5); Neutrophil # 8.12 X10^3/uL (2.7-7.7); Neutrophil % 85.6 % (47-70); POSITIVE DIFFERENTIAL YES; Platelet Count 169 K/mm3 (150-450); RBC Distribution Width CV 18.8 % (11.6-14.6); RBC Distribution Width SD 57.1 fl (35.1-43.9); Red Blood Count 4.69 M/mm3 (4.2-5.4); White Blood Count 9.5 K/mm3 (4.4-11.0)
[2021-05-29 07:41] LABS: Differential Indicated SCAN CRITERIA MET
--- NOTE | 2021-05-29 07:48 | PN.CARD_ITS ---
Subjective Subjective Patient seen and evaluated. Appears to be doing better this morning. Vitals are stable. Objective Data Vital Signs: Vital Signs Temp Pulse Resp BP Pulse Ox 97.9 F 71 18 106/68 95 05/29/21 06:00 05/29/21 07:29 05/29/21 07:29 05/29/21 06:00 05/29/21 07:29 Oxygen Flow Rate (L/min) 6 Oxygen Delivery Method Nasal Cannula Weight: 185 lb 13.595 oz Body Mass Index (BMI) 23.8 Intake & Output: Intake and Output for Last 24 Hours 05/27/21 05/28/21 05/29/21 23:59 23:59 23:59 Intake Total 10 / 10 0 / 0 Output Total 2450 / 2450 150 / 150 Balance -2440 / -2440 -150 / -150 Lab / Micro Data Result Diagrams: 05/29/21 06:35 05/28/21 04:36 Labs: Laboratory Results - last 24 hr 05/28/21 08:20: Troponin I High Sens 1524.9 H* 05/29/21 06:35: WBC 9.5, RBC 4.69, Hgb 12.9, Hct 41.9, MCV 89.3, MCH 27.5, MCHC 30.8 L, RDW Std Deviation 57.1 H, RDW Coeff of Loren 18.8 H, Plt Count 169, MPV 11.7, Immature Gran % (Auto) 0.400, Neut % (Auto) 85.6 H, Lymph % (Auto) 5.5 L, [place] % (Auto) 8.1, Eos % (Auto) 0.2, Baso % (Auto) 0.2, Absolute Neuts (auto) 8.1 H, Absolute Lymphs (auto) 0.52 L, Nucleated RBC % 0 Cardiology Labs/Tests 05/29/21 06:35: WBC 9.5, RBC 4.69, Hgb 12.9, Hct 41.9, MCV 89.3, MCH 27.5, MCHC 30.8 L, Plt Count 169, MPV 11.7, Immature Gran % (Auto) 0.400, Neut % (Auto) 85.6 H, Lymph % (Auto) 5.5 L, [place] % (Auto) 8.1, Eos % (Auto) 0.2, Baso % (Auto) 0.2, Absolute Neuts (auto) 8.1 H, Nucleated RBC % 0 Rhythm: EKG: ECHO: Stress Test: Cardiac Cath: PCI: CT Surgery: Holter monitor: EPS: PPM: CXR: Chest CT Scan: Physical Exam Const alert Orientation / Consciousness: oriented to person, oriented to place and oriented to time Nutritional Appearance: cachectic HEENT normocephalic Mouth: dry mucous membranes Eyes PERRL, EOMs intact bilaterally and conjunctivae normal Neck no lymphadenopathy Resp clear to auscultation bilaterally Auscultation: diminished lung sounds Cardio regular rate, regular rhythm and no murmurs Peripheral Pulses: pulses 2+ throughout GI normal to inspection, nondistended, normoactive bowel sounds, non-tender and non-distended Extremity normal to inspection Skin no rashes or lesions noted Lesions: no lesions Rashes: no rashes Trauma: no lacerations or abrasions Neuro CN's II-XII intact bilaterally, no focal motor deficits, no sensory deficits noted and deep tendon reflexes 2+ bilaterally Psych mental status grossly normal and affect normal Assessment & Plan Assessment/Plan (1) NSTEMI, initial episode of care: PLAN: She does appear to have elevated cardiac enzymes which is suggestive of a non-ST elevation myocardial infarction. I suspect that this is on the basis of his severe left ventricular systolic dysfunction. The global nature suggests that this may not be obstructive coronary disease related. I would recommend at this time expectant management. She is anticoagulated which will be continued and she would also be on a baby aspirin together with her beta- cynthia. At this time I do not think that there are any plans to take it to the cardiac catheterization lab for invasive therapy. (2) Congestive heart failure: QUALIFIERS: Heart failure type: systolic Heart failure chronicity: acute on chronic Qualified Code(s): I50.23 - Acute on chronic systolic (congestive) heart failure PLAN: She does have congestive heart failure [place] [employer] class IV and ACC stage D. The recommendation will be to continue with the Ent sal, the diuretics, the beta-cynthia and Aldactone as tolerated. In addition she has been using BiPAP at night. I do not think that she is a candidate for dobutamine or milrinone at this time. (3) Nonischemic cardiomyopathy: PLAN: She does have a history of nonischemic cardiomyopathy with estimated ejection fraction at approximately 10%. This appears to be global in nature. I suspect this is due to a combination of events. Her atrial fibrillation, her valvular heart disease with replacement, and intrinsic cardiomyopathy is involved. I would recommend no changes without therapy but optimization of her beta-cynthia dose. As you know this has been hampered by her blood pressure being low. (4) H/O mitral valve replacement: PLAN: She does have a history of mitral valve replacement. She is on anticoagulation to maintain an INR of 2.5-3.5. The valve integrity appears to be stable. There is probably some chordal apparatus which is noted in the subvalvular area. (5) Longstanding persistent atrial fibrillation: PLAN: She does have chronic longstanding persistent atrial fibrillation flutter. Her ventricular response rate is controlled. I would not recommend that we make any other major changes with regard to this. At this point she appears to be fairly stable to be discharged on her current medications for outpatient follow-up. Thank you for allowing me to participate in the care of your patient. Please don't hesitate to call if any issues arise.
[2021-05-29 08:13] LABS: Anion Gap 7 (5-15); BUN 26 mg/dL (7-18); BUN/Creat Ratio 31.6 RATIO (10-20); Calcium,Total 8.7 mg/dL (8.5-10.1); Chloride 115 mmol/L (98-107); Creatinine, Serum 0.82 mg/dL (0.55-1.02); EST Glomerular Filtration Rate 71 mL/min (>60); Est Glom Filt Rate - Afr Amer 86 mL/min (>60); Estimated Creatinine Clearance 70.47 ml/min; Glucose 112 mg/dL (74-106); Potassium 3.8 mmol/L (3.5-5.1); Sodium Level 147 mmol/L (136-145)
[2021-05-29 09:15] LABS: Prothrombin Time (Protime)PT. 40.3 SECONDS (11.7-14.9)
[2021-05-29 09:17] LABS: International Normalized Ratio 4.3
[2021-05-29] MEDS: Folic Acid 1 MG Tablet PO (09:40)
[2021-05-29] MEDS: Glycerin/Hypromellose/PEG400 15 ml Bottle 1 DRP EACH EYE (09:40)
[2021-05-29] MEDS: Spironolactone 25 MG Tablet PO (09:40)
[2021-05-29] MEDS: Amiodarone 200 MG Tablet PO (09:41)
[2021-05-29] MEDS: Amox/Clavulanate 875 MG Tablet PO (09:41)
[2021-05-29] MEDS: Senna/Docusate Sodium 1 Tablet 2 TABLET PO (09:42)
[2021-05-29] MEDS: Calcium Carb/Vitamin D 1 TABLET Tablet PO (09:42)
[2021-05-29] MEDS: Magnesium Chloride 64 MG Delay Rel.Tablet 128 MG PO (09:42)
[2021-05-29] MEDS: SACUBITRIL/VALSARTAN 49-51 MG TABLET 1 EACH PO (09:43)
[2021-05-29] MEDS: Furosemide 40 MG Tablet PO (09:47)
--- NOTE | 2021-05-29 10:34 | CASEMGMT ---
Physician spoke with patient and she agreed to Hospice. SW met with patient. SW confirmed she would like Hospice. SW went over options including inpatient Hospice if she qualifies or going back to [facility]. SW told her if she would go to [facility] she would have to pay room and board as her insurance would pay for the Hospice care only. SW told her that would be around $250 some dollars a day. She said she prefers to go to the Hospice Unit. SW asked her if she feels her will be supportive. She said he will not as he doesn't think she will ever . SW asked if there was anything SW could do to help. She said no. SW asked if she wanted SW to call anyone and she said no. ROB called Hospice and spoke with Taylor regarding the referral. ROB told her do not call the as he is not aware of referral yet. ROB faxed referral. Taylor asked SW to call when we have spoken to patient's . Marnie KEITA
--- NOTE | 2021-05-29 11:08 | CASEMGMT ---
SW spoke with patient again as SW feels her should at least be made aware of Hospice referral otherwise it could make things worse for patient. She said SW can call her if SW has the number. SW called patient's and got a voice mail with no identifying information. SW will try again in a little bit and/or will talk with him if he comes in to the hospital. Marnie Parra TILT WALL SUPERVISORJuan KEITA
--- NOTE | 2021-05-29 11:48 | CASEMGMT ---
ROB and BUSINESS AND MARKETING TEACHER Philly VirgilQuita went to patient's room as her arrived. SW shared with him that the physician spoke with patient this am and she would like Hospice. SW let him know that SW has made the referral and they will come in and talk with her. BUSINESS AND MARKETING TEACHER answered his questions regarding medical diagnoses. ROB called Taylor at Hospice and let her know to go ahead and come see patient. She said she will be in after lunch. Patient's son came to [facility] and SW updated him on Hospice coming after lunch to see patient. Marnie KEITA
--- NOTE | 2021-05-29 12:34 | CASEMGMT ---
SW received a call from Taylor with Hospice. She said she will be here between 130p and 2p to talk with patient. She also asked if SW could fax Cardiology notes from patient's last visit. ROB faxed these notes. ROB updated FINANCE PROFESSIONAL and RN on Hospice appt. Marnie KEITA
--- NOTE | 2021-05-29 14:18 | PCM.DC.SUM ---
Documented by User: Philly Ramos NP, CHIEF RADIOLOGY-C 05/29/21 14:30 Providers Date of Admission: 05/28/21 Date of Discharge: 05/29/21 Primary Care Physician: Dr. Jr Baron MD Consultations 05/28/21 02:12 Consult: Cardiology Routine Consulting Provider: Raimundo Saunders Reason for Consult: Elevated trop, NSTEMI EMERGENT Consult: No MD Notified: No Date Notified: 05/28/21 Time Notified: 02:12 05/28/21 02:33 Consult: Cardiology Routine Consulting Provider: Raimundo Saunders Reason for Consult: NSTEMI, Trop high, pulm edema EMERGENT Consult: No MD Notified: Yes Date Notified: 05/28/21 Time Notified: 04:34 Method of Notification: Verbal Reason For Visit: CHF EXA Diagnosis Discharge Diagnosis (1) NSTEMI, initial episode of care: Status: Acute Code(s): I21.4 - Non-ST elevation (NSTEMI) myocardial infarction (2) Congestive heart failure: Status: Acute Code(s): I50.9 - Heart failure, unspecified Qualifiers: Heart failure chronicity: acute on chronic Heart failure type: systolic Qualified Code(s): I50.23 - Acute on chronic systolic (congestive) heart failure (3) Nonischemic cardiomyopathy: Status: Chronic Code(s): I42.8 - Other cardiomyopathies (4) H/O mitral valve replacement: Status: Chronic Code(s): Z95.2 - Presence of prosthetic heart valve (5) Longstanding persistent atrial fibrillation: Status: Chronic Code(s): I48.11 - Longstanding persistent atrial fibrillation Medications at Discharge Home Medications alpha lipoic acid 200 mg PO TID 04/24/15 alprazolam 0.25 mg PO BID 04/24/15 levocarnitine tartrate 500 mg PO TID 04/24/15 niacin 1,000 mg PO BID 04/24/15 calcium carbonate-vitamin D3 2 tab PO BID 04/05/16 coenzyme Q10 100 mg PO DAILY 04/05/16 folic acid 1 mg PO DAILY@0800 04/05/16 warfarin 2 mg PO SUTUWETHFRSA 04/05/16 warfarin 2 mg PO MO 05/12/16 flaxseed oil 5 ml MISCELLANEOUS ONCE ml 10/29/18 dextran 70-hypromellose 0.1 %-0.3 % eye drops 1 drp OPHTHALMIC DAILY ml 05/06/19 amiodarone 200 mg tablet 200 mg PO DAILY #90 tab 04/17/20 rosuvastatin 20 mg tablet 20 mg PO QHS #90 tab 05/17/20 linaclotide 72 mcg capsule 72 mcg PO DAILY cap 02/20/21 magnesium 250 mg tablet 500 mg PO DAILY tab 02/20/21 carvedilol 3.125 mg tablet See Rx Instructions PO BID #270 tab 05/18/21 Entresto 1 tab PO BID 05/23/21 quetiapine [Seroquel] 25 mg PO BID 05/23/21 amoxicillin-pot clavulanate [Augmentin] 1 tab PO BID 4 Days #8 tab 05/25/21 furosemide 40 mg PO BIDLX #0 tab 05/25/21 potassium chloride [Klor-Con M20] 40 meq PO DAILYCM #0 tab 05/25/21 spironolactone 25 mg PO DAILY #0 tab 05/25/21 Hospital Course Operations None Procedures None Summary of Care Provided Minutes Spent on Discharge: 35 Hospital Course: Patient is a 76-year-old female admitted 05/28/2021 due to shortness of breath and agitation. 1. Acute hypoxic respiratory failure secondary to acute on chronic heart failure with reduced ejection fraction-continue supplement oxygen to maintain O2 at above 90% BiPAP as tolerated. IV Lasix during admission. Patient requesting hospice transition, specifically inpatient. Patient will be transferred to inpatient hospice unit to facilitate comfort measures. Patient is symptomatic with significant shortness of breath and intermittent restlessness. 2. NSTEMI-cardiology consulted. Suspected secondary to severe systolic dysfunction. Plan for medical management. Aspirin added. 3. Nonischemic cardiomyopathy s/p AICD-continue medical management. Recent echocardiogram 05/24/2021 demonstrated an EF of 10%. IV Lasix during mission. Lasix 40 mg twice daily at discharge. On Entresto. 4. History of mechanical mitral valve replacement/history of rheumatic valvular disease 5. Longstanding persistent atrial fibrillation-on carvedilol, amiodarone. Supratherapeutic INR, Coumadin held during admission. INR 4.3 at discharge. 6. History of stroke with residual dysarthria/dysphagia-speech therapy consult during admission. Modified diet with pur?ed food consistency and honey thick liquids. 7. Chronic mild normocytic anemia-stable. 8. REBECCA-continue home PAP regimen. 9. Generalized weakness with debility/spinal cerebral ataxia- follows with Dr. Del Cid, neurology. Recent DC to SNF. Physical Exam Const alert Constitutional Narrative: On BiPAP Orientation / Consciousness: oriented to person, oriented to place and oriented to time Nutritional Appearance: cachectic HEENT normocephalic Mouth: dry mucous membranes Eyes PERRL, EOMs intact bilaterally and conjunctivae normal Neck no lymphadenopathy Resp clear to auscultation bilaterally Auscultation: diminished lung sounds, tachypneic, dyspneic at rest Cardio regular rate, regular rhythm and no murmurs, ventricular paced Peripheral Pulses: pulses 2+ throughout GI normal to inspection, nondistended, normoactive bowel sounds, non-tender and non-distended Extremity normal to inspection Skin no rashes or lesions noted Lesions: no lesions Rashes: no rashes Trauma: no lacerations or abrasions Neuro CN's II-XII intact bilaterally, no focal motor deficits, no sensory deficits noted and deep tendon reflexes 2+ bilaterally Psych mental status grossly normal and affect normal Patient seen and examined prior to discharge. Physical assessment as noted above. Hospice transition as noted above. This patient was seen by ALYSHA Lee under the supervision of Dr. Nieto. Weight / BMI Weight Weight: 185 lb 13.595 oz Body Mass Index (BMI) 23.8 ABG / Lab / Microbiology Data Result Diagrams: 05/29/21 06:35 05/29/21 06:35 Laboratory: Laboratory Results - last 24 hr 05/29/21 06:35: WBC 9.5, RBC 4.69, Hgb 12.9, Hct 41.9, MCV 89.3, MCH 27.5, MCHC 30.8 L, RDW Std Deviation 57.1 H, RDW Coeff of Loren 18.8 H, Plt Count 169, MPV 11.7, Immature Gran % (Auto) 0.400, Neut % (Auto) 85.6 H, Lymph % (Auto) 5.5 L, [place] % (Auto) 8.1, Eos % (Auto) 0.2, Baso % (Auto) 0.2, Absolute Neuts (auto) 8.1 H, Absolute Lymphs (auto) 0.52 L, Nucleated RBC % 0 05/29/21 06:35: Sodium 147 H, Potassium 3.8, Chloride 115 H, Carbon Dioxide 25.0, Anion Gap 7, BUN 26 H, Creatinine 0.82, Estim Creat Clear Calc 70.47, Est GFR (MDRD) Af Amer 86, Est GFR (MDRD) Non-Af 71, BUN/Creatinine Ratio 31.6 H, Glucose 112 H, Calcium 8.7 05/29/21 06:35: PT 40.3 H, INR 4.3 H* Meaningful Use Info Meaningful Use Diagnoses (Choose all that apply): CHF CHF RONNELL/ARB ordered at discharge?: Yes Documented LVEF (%): 10 Discharge Plan Admission Admit Date/Time: 05/28/21 02:06 Attending Provider: Marti Nieto Primary Care Provider: Jr Baron Consulting Providers: Raimundo Saunders Discharge Orders/Prescriptions Prescriptions: No Action flaxseed oil oil 5 ml miscellaneous ONCE RF: 0 Natural Balance Tears 0.1-0.3 % drops 1 drp OPHTHALMIC DAILY RF: 0 linaclotide 72 mcg capsule 72 mcg PO DAILY RF: 0 niacin 1,000 MG tablet extended release 24 hr 1,000 mg PO BID RF: 0 alprazolam 0.5 MG tablet extended release 24 hr 0.25 mg PO BID RF: 0 levocarnitine tartrate 500 MG capsule 500 mg PO TID RF: 0 alpha lipoic acid 600 MG capsule 200 mg PO TID RF: 0 magnesium 250 mg tablet 500 mg PO DAILY RF: 0 warfarin 2 MG tablet 2 mg PO SUTUWETH RF: 0 folic acid 1 MG tablet 1 mg PO DAILY@0800 RF: 0 coenzyme Q10 100 MG capsule 100 mg PO DAILY RF: 0 calcium carbonate-vitamin D3 1 TAB tablet 2 tab PO BID RF: 0 warfarin 3 MG tablet 2 mg PO MO RF: 0 quetiapine [Seroquel] 25 mg Tablet 25 mg PO BID RF: 0 Entresto 49-51 mg Tablet 1 tab PO BID RF: 0 furosemide 40 mg Tablet 40 mg PO BIDLX Qty: 0 RF: 0 spironolactone 25 mg Tablet 25 mg PO DAILY Qty: 0 RF: 0 potassium chloride [Klor-Con M20] 20 mEq Tablet,Er Particles/Crystals 40 meq PO DAILYCM Qty: 0 RF: 0 amoxicillin-pot clavulanate [Augmentin] 875-125 mg tablet 1 tab PO BID 4 Days Qty: 8 RF: 0 amiodarone 200 mg tablet 200 mg PO DAILY Qty: 90 RF: 3 rosuvastatin 20 mg tablet 20 mg PO QHS Qty: 90 RF: 3 carvedilol 3.125 mg tablet See Rx Instructions PO BID Qty: 270 RF: 3 Referrals / Follow Up: Jr Baron MD [Primary Care Provider] - Disposition Disposition (needs filled in before D/C Order can be placed): Hospice in Medical Facility Documented by User: Dr. Marti Nieto MD 05/29/21 16:13 Providers Date of Admission: 05/28/21 Reason For Visit: CHF EXA Medications at Discharge Home Medications alpha lipoic acid 200 mg PO TID 04/24/15 alprazolam 0.25 mg PO BID 04/24/15 levocarnitine tartrate 500 mg PO TID 04/24/15 niacin 1,000 mg PO BID 04/24/15 calcium carbonate-vitamin D3 2 tab PO BID 04/05/16 coenzyme Q10 100 mg PO DAILY 04/05/16 folic acid 1 mg PO DAILY@0800 04/05/16 warfarin 2 mg PO SUTUWETHFRSA 04/05/16 warfarin 2 mg PO MO 05/12/16 flaxseed oil 5 ml MISCELLANEOUS ONCE ml 10/29/18 dextran 70-hypromellose 0.1 %-0.3 % eye drops 1 drp OPHTHALMIC DAILY ml 05/06/19 amiodarone 200 mg tablet 200 mg PO DAILY #90 tab 04/17/20 rosuvastatin 20 mg tablet 20 mg PO QHS #90 tab 05/17/20 linaclotide 72 mcg capsule 72 mcg PO DAILY cap 02/20/21 magnesium 250 mg tablet 500 mg PO DAILY tab 02/20/21 carvedilol 3.125 mg tablet See Rx Instructions PO BID #270 tab 05/18/21 Entresto 1 tab PO BID 05/23/21 quetiapine [Seroquel] 25 mg PO BID 05/23/21 amoxicillin-pot clavulanate [Augmentin] 1 tab PO BID 4 Days #8 tab 05/25/21 furosemide 40 mg PO BIDLX #0 tab 05/25/21 potassium chloride [Klor-Con M20] 40 meq PO DAILYCM #0 tab 05/25/21 spironolactone 25 mg PO DAILY #0 tab 05/25/21 ABG / Lab / Microbiology Data Result Diagrams: 05/29/21 06:35 05/29/21 06:35 Discharge Plan Admission Admit Date/Time: 05/28/21 02:06 Attending Provider: Marti Nieto Primary Care Provider: Jr Baron Consulting Providers: Raimundo Saunders Discharge Orders/Prescriptions Prescriptions: No Action flaxseed oil oil 5 ml miscellaneous ONCE RF: 0 Natural Balance Tears 0.1-0.3 % drops 1 drp OPHTHALMIC DAILY RF: 0 linaclotide 72 mcg capsule 72 mcg PO DAILY RF: 0 niacin 1,000 MG tablet extended release 24 hr 1,000 mg PO BID RF: 0 alprazolam 0.5 MG tablet extended release 24 hr 0.25 mg PO BID RF: 0 levocarnitine tartrate 500 MG capsule 500 mg PO TID RF: 0 alpha lipoic acid 600 MG capsule 200 mg PO TID RF: 0 magnesium 250 mg tablet 500 mg PO DAILY RF: 0 warfarin 2 MG tablet 2 mg PO SUTUWETHFR RF: 0 folic acid 1 MG tablet 1 mg PO DAILY@0800 RF: 0 coenzyme Q10 100 MG capsule 100 mg PO DAILY RF: 0 calcium carbonate-vitamin D3 1 TAB tablet 2 tab PO BID RF: 0 warfarin 3 MG tablet 2 mg PO MO RF: 0 quetiapine [Seroquel] 25 mg Tablet 25 mg PO BID RF: 0 Entresto 49-51 mg Tablet 1 tab PO BID RF: 0 furosemide 40 mg Tablet 40 mg PO BIDLX Qty: 0 RF: 0 spironolactone 25 mg Tablet 25 mg PO DAILY Qty: 0 RF: 0 potassium chloride [Klor-Con M20] 20 mEq Tablet,Er Particles/Crystals 40 meq PO DAILYCM Qty: 0 RF: 0 amoxicillin-pot clavulanate [Augmentin] 875-125 mg tablet 1 tab PO BID 4 Days Qty: 8 RF: 0 amiodarone 200 mg tablet 200 mg PO DAILY Qty: 90 RF: 3 rosuvastatin 20 mg tablet 20 mg PO QHS Qty: 90 RF: 3 carvedilol 3.125 mg tablet See Rx Instructions PO BID Qty: 270 RF: 3 Referrals / Follow Up: Jr Baron MD [Primary Care Provider] - Disposition Disposition (needs filled in before D/C Order can be placed): Hospice in Medical Facility Charges/Coding Addendum Addendum: Patient seen by ALYSHA Lee under my supervision. Patient is a 76-year-old male with extensive past medical history as outlined was admitted on 05/28/2021 from her senior care with a complaint of shortness of breath. Patient had been recently admitted for acute exacerbation of heart failure and discharged 3 days prior to admission. During that admission, she was deemed appropriate for hospice but refused. When the symptoms started, she was again offered hospice service in a senior care but refused when she was brought in. She was found to be hypoxic with saturation in the 70s and had bilateral crackles on examination. EKG showed no acute ST changes and chest x-ray showed increased interstitial and alveolar edema. BNP was markedly elevated. She was also found to have elevated troponins. She was admitted and managed for non-STEMI as well as acute on chronic exacerbation of heart failure with reduced ejection fraction. Most recent 2D echo done showed EF of 10%. She was placed on BiPAP and started on IV Lasix for diuresis. Cardiology was consulted and recommended medical management for her heart failure exacerbation. Patient was gradually transitioned off of BiPAP onto oxygen by nasal cannula. After further discussion, patient did opt for hospice and when asked to clarify if she understood what hospice was for, she said hospice was for people who are dying. Patient agreed to go to an inpatient hospice facility and her CODE STATUS was changed to DNR CC. She was discharged to inpatient hospice on 05/29/2021. Patient was seen and examined prior to discharge. She had no complaints and felt well. Review of systems otherwise negative. Labs and vitals reviewed. Home medication reviewed and reconciled. O/E: Const alert, Constitutional Narrative: On BiPAP Orientation / Consciousness: oriented to person, oriented to place and oriented to time Nutritional Appearance: cachectic HEENT normocephalic Mouth: dry mucous membranes Eyes PERRL, EOMs intact bilaterally and conjunctivae normal Neck no lymphadenopathy Resp diminished breath sounds bilaterally, no wheezes or crackles. On BIPAP Cardio regular rate, regular rhythm and no murmurs Peripheral Pulses: pulses 2+ throughout GI normal to inspection, nondistended, normoactive bowel sounds, non-tender and non-distended Extremity normal to inspection Skin no rashes or lesions noted Lesions: no lesions Rashes: no rashes Trauma: no lacerations or abrasions Neuro CN's II-XII intact bilaterally, no focal motor deficits, no sensory deficits noted and deep tendon reflexes 2+ bilaterally Psych mental status flat. Plan is for discharge to hospice inpatient facility today. Rest as per Philly Ramos CHIEF RADIOLOGY-C's note which I have reviewed and endorsed. Visit Charges Inpatient E&M: [id number] Disch Hosp
--- NOTE | 2021-05-29 14:36 | CASEMGMT ---
Taylor from Hospice came and spoke with patient. Patient signed Hospice papers and she would like to go to their inpatient unit. HELIO Fraga called Dr Almeida at Hospice and patient was approved for their inpatient unit. ROB gave RN the number to call for report. Hospice's mobile unit will be here to picking machine operator patient in 20 min. RN and department secretary notified. SW will call [facility] and let Shania know patient will not be returning and is going to the inpatient Hospice unit. Plan: d/c to [facility] inpatient unit. Hospice mobile unit transported patient. Marnie KEITA
--- NOTE | 2021-05-29 14:41 | NURSING ---
called report to hospice inpt unit.
== END 2021-05-29 15:07 | disposition hospice, inpatient (51) | DRG 280 ==
LOC: ED 23:58 → PCU 05-28 00:50
PROVIDERS: Nurse Practitioner Family; Admitting Provider Internal Medicine; Emergency Provider Emergency Medicine; PCP Family Medicine; Visit Provider Student in an Organized Health Care Education/Training Program
DX: I21.4 Non-ST elevation (NSTEMI) myocardial infarction (principal); J96.01 Acute respiratory failure with hypoxia; I50.23 Acute on chronic systolic (congestive) heart failure; I42.8 Other cardiomyopathies; I48.11 Longstanding persistent atrial fibrillation; G11.9 Hereditary ataxia, unspecified; I48.92 Unspecified atrial flutter; I11.0 Hypertensive heart disease with heart failure; I44.7 Left bundle-branch block, unspecified; D64.9 Anemia, unspecified; G47.33 Obstructive sleep apnea (adult) (pediatric); E78.5 Hyperlipidemia, unspecified; I69.322 Dysarthria following cerebral infarction; I69.391 Dysphagia following cerebral infarction; R13.10 Dysphagia, unspecified; Z66 Do not resuscitate; Z95.810 Presence of automatic (implantable) cardiac defibrillator; Z95.1 Presence of aortocoronary bypass graft; Z95.2 Presence of prosthetic heart valve; Z79.01 Long term (current) use of anticoagulants; Z79.82 Long term (current) use of aspirin; Z79.899 Other long term (current) drug therapy
CPT/HCPCS: 36415; 71045; 80048; 80053; 80061; 83735; 83880; 84100; 84484; 85025; 85610; 85730; 92526; 92610; 93005; 94002; 94003; 94762; 99285; A4216; J1940